=== PATIENT | male | born 1940 ===

== ENCOUNTER 2016-10-21 21:57 | Inpatient (IN) | payer MEDICARE ==
[~2016-10-21] VITALS: Ht 180.3 cm; Wt 111.5 kg
[2016-10-21 22:26] VITALS: BP 124/58; PULSE 107; RESP 16; TEMP 98.3; O2SAT 94
[2016-10-21] MEDS ORDERED: SODIUM CHLORIDE 0.9% FLUSH 10 ML FLUSH IV FLUSH PRN (22:45)
--- NOTE | 2016-10-21 22:45 | PD ---
HPI Chief Complaint: Fall Time Seen by Provider: 22:45 Travel History International Travel<30 days: No Contact w/Intl Traveler<30days: No Traveled to known affect area: No History of Present Illness HPI 75-year-old male with a history of liver cirrhosis, ascites, diabetes, hypertension, GERD, gastritis, thrombocytopenia is brought to our emergency department as a transfer from [facility] for subarachnoid hemorrhage and cervical and thoracic spine fractures. He was accepted in transfer by neurosurgeon Dr. Henry. The patient was in the process of being discharged from a recent hospitalization at their facility when he slipped in the shower and fell injuring his head and neck. The patient was then evaluated and noted to have a subarachnoid hemorrhage with fractures of C4, C7, T1. and T3 The patient states that he also somehow hit his chest wall when he fell and is complaining of pain in his mid sternal chest wall. Denies any headache, lightheadedness, dizziness, nausea, vomiting, numbness or tingling, weakness. Denies any anticoagulation. No other complaints. PFSH Past Medical History Diabetes: Yes Patient Takes Glucophage: Yes Diminished Hearing: No GERD: Yes Hypertension: Yes Tetanus Vaccination: < 5 Years Influenza Vaccination: No Past Surgical History Abdominal Surgery: Yes (bile duct and stomach reconstructionx 2-3 times) Social History Alcohol Use: No Tobacco Use: No Substance Use: No Allergies-Medications (Allergen,Severity, Reaction): Coded Allergies: No Known Allergies (Unverified , 10/21/16) Reported Meds & Prescriptions Reported Meds & Active Scripts Active Review of Systems Except as stated in HPI: all other systems reviewed are Neg Physical Exam Narrative GENERAL: Well-nourished and well-developed pleasant male patient in no acute distress who is nontoxic appearing. SKIN: Warm and dry. HEAD: Normocephalic and atraumatic. EYES: No injection, drainage, or hyphema noted. PERRLA. EOMI. ENT: No nasal drainage noted. Oropharynx is clear. NECK: Supple and the trachea is midline. Patient is currently in [place] collar cervical immobilization. CARDIOVASCULAR: Regular rate and rhythm. RESPIRATORY: Breath sounds are equal bilaterally with no accessory muscle use, wheezing, rhonchi, or crackles. GASTROINTESTINAL: Distended abdomen with varices noted. Soft and nontender to palpation. MUSCULOSKELETAL: Bilateral lower extremity edema. No obvious deformities, cyanosis, or ecchymosis is present throughout the upper and lower extremities. Patient has full range of motion without any signs of neurovascular compromise. Strength 5/5 upper and lower extremities equal bilaterally. NEUROLOGICAL: Awake, alert, and oriented. Normal speech and gait. Cranial nerves are grossly intact. Data Data Last Documented VS Vital Signs Date Time Temp Pulse Resp B/P Pulse Ox O2 Delivery O2 Flow Rate FiO2 10/21/16 22:52 95 Nasal Cannula 2 10/21/16 22:26 98.3 107 16 124/58 Orders Splint Or Brace Apply/Monitor (10/21/16 22:41) Complete Blood Count With Diff (10/21/16 22:43) Comprehensive Metabolic Panel (10/21/16 22:43) Prothrombin Time / Inr (Pt) (10/21/16 22:43) Act Partial Throm Time (Ptt) (10/21/16 22:43) Iv Access Insert/Monitor (10/21/16 22:43) Ecg Monitoring (10/21/16 22:43) Oximetry (10/21/16 22:43) Sodium Chloride 0.9% Flush (Ns Flush) (10/21/16 22:45) Chest, Single Ap (10/21/16 22:43) Ct Brain W/O Iv Contrast(Rout) (10/22/16 08:00) Consult Neurosurgery (10/21/16 ) (Hub Use Only)Inp Phy Cons/Ref (10/21/16 ) Admit Order (Ed Use Only) (10/21/16 23:14) Labs Laboratory Tests Test 10/21/16 23:00 White Blood Count 10.2 TH/MM3 Red Blood Count 3.37 MIL/MM3 Hemoglobin 12.6 GM/DL Hematocrit 36.1 % Mean Corpuscular Volume 107.1 FL Mean Corpuscular Hemoglobin 37.3 PG Mean Corpuscular Hemoglobin 34.9 % Concent Red Cell Distribution Width 15.3 % Platelet Count 105 TH/MM3 Mean Platelet Volume 8.0 FL Neutrophils (%) (Auto) 83.0 % Lymphocytes (%) (Auto) 8.9 % Monocytes (%) (Auto) 7.1 % Eosinophils (%) (Auto) 0.4 % Basophils (%) (Auto) 0.6 % Neutrophils # (Auto) 8.5 TH/MM3 Lymphocytes # (Auto) 0.9 TH/MM3 Monocytes # (Auto) 0.7 TH/MM3 Eosinophils # (Auto) 0.0 TH/MM3 Basophils # (Auto) 0.1 TH/MM3 CBC Comment DIFF FINAL Differential Comment Prothrombin Time 14.0 SEC Prothromb Time International 1.3 RATIO Ratio Activated Partial 28.9 SEC Thromboplast Time Sodium Level 144 MEQ/L Potassium Level 4.2 MEQ/L Chloride Level 106 MEQ/L Carbon Dioxide Level 29.6 MEQ/L Anion Gap 8 MEQ/L Blood Urea Nitrogen 19 MG/DL Creatinine 0.91 MG/DL Estimat Glomerular Filtration 82 ML/MIN Rate Random Glucose 122 MG/DL Calcium Level 8.3 MG/DL Total Bilirubin 2.6 MG/DL Aspartate Amino Transf 50 U/L (AST/SGOT) Alanine Aminotransferase 45 U/L (ALT/SGPT) Alkaline Phosphatase 99 U/L Total Protein 5.9 GM/DL Albumin 2.3 GM/DL MDM Medical Decision Making Medical Screen Exam Complete: Yes Emergency Medical Condition: Yes Differential Diagnosis Intracranial hemorrhage versus traumatic brain injury versus fracture versus strain Narrative Course 75-year-old male is brought to the emergency department in transfer from [facility] for subarachnoid hemorrhage and cervical and thoracic spine fractures. Patient is afebrile, vital signs are stable. Patient is awake , alert and oriented. No focal neurologic deficits. I spoke with the neurosurgeon who accepted the patient and he requested patient be placed in a [place] J collar and admitted to ICU. The patient's most recent labs included in the transfer packet were 2 days ago and showed that he had an INR of 1.3. We will recheck basic labs here at our facility. I discussed with the neurosurgeon and he does not recommend FFP at this time. He'll be admitted to the ICU. I discussed the case with my attending physician Dr. Mckinney who is aware of the patients history, physical examination findings, and treatment plan. Physician Communication Physician Communication I spoke with Dr. Henry neurosurgeon who accepted the transfer. He requests [place] J collar, admission to ICU and repeat head CT in the morning. I discussed with him the intrinsically elevated INR and he does not recommend FFP or any other treatment at this time. My attending physician Dr. Mckinney spoke with Dr. Thompson who agrees to admit the patient to his service. Diagnosis Primary Impression: Subarachnoid hemorrhage Additional Impressions: Multiple fractures of cervical spine, closed Qualified Code: S12.9XXA - Multiple fractures of cervical spine, closed, initial encounter Mult fractures of thoracic spine, closed Qualified Code: S22.009A - Mult fractures of thoracic spine, closed, initial encounter Admitting Information Admitting Physician Requests: Admit Caity Perry Oct 21, 2016 22:45
[2016-10-21 22:52] VITALS: O2SAT 95
[2016-10-21 23:15] LABS: AUTOMATED NEUTROPHIL # 8.5 TH/MM3 (1.8-7.7); BASOPHIL # 0.1 TH/MM3 (0-0.2); BASOPHIL % 0.6 % (0.0-2.0); EOSINOPHIL % 0.4 % (0.0-4.0); HEMATOCRIT 36.1 % (39.0-51.0); HEMO FLAGS DIFF FINAL; LYMPH % 8.9 % (9.0-44.0); LYMPHOCYTE # 0.9 TH/MM3 (1.0-4.8); MEAN CELL VOLUME 107.1 FL (80.0-100.0); MEAN CORPUSCULAR HEMOGLOBIN 37.3 PG (27.0-34.0); MEAN CORPUSCULAR HGB CONC 34.9 % (32.0-36.0); MONO % 7.1 % (0.0-8.0); PLATELET COUNT 105 TH/MM3 (150-450); RED BLOOD COUNT 3.37 MIL/MM3 (4.50-5.90); RED CELL DISTRIBUTION WIDTH 15.3 % (11.6-17.2); WHITE BLOOD COUNT 10.2 TH/MM3 (4.0-11.0)
[2016-10-21 23:36] LABS: APTT (PATIENT) 28.9 SEC (24.3-30.1); INTERNATIONAL NORMALIZED RATIO 1.3 RATIO
--- NOTE | 2016-10-21 23:41 | RADRPT ---
EXAM DATE/TIME: 10/21/2016 22:44 [facility] COMPARISON: No previous studies available for comparison. INDICATIONS : Pt fell this morning. Was discharged from [facility] with cervical and T1 fractures. C-collar i n place. MEDICAL HISTORY : Diabetes mellitus type II. Gastroesophageal reflux disease. Hypertension. SURGICAL HISTORY : Common bile duct reconstruction ENCOUNTER: Initial ACUITY: 1 day PAIN SCORE: 7/10 LOCATION: Bilateral chest FINDINGS: A single view of the chest is obtained. Cardiomegaly. Bibasilar atelectasis. The cardiomediastinal co ntours are unremarkable. Osseous structures are intact. CONCLUSION: 1. Cardiomegaly with bibasilar atelectasis. Oskar Chavira MD on October 21, 2016 at 23:37 Board Certified Radiologist. This report was verified electronically.
[2016-10-21 23:42] LABS: ALKALINE PHOSPHATASE 99 U/L (45-117); TOTAL BILIRUBIN ADULT 2.6 MG/DL (0.2-1.0)
[2016-10-21] MEDS ORDERED: SODIUM CHLOR 0.9% 1000 ML INJ 1,000 ML IV SCH (23:49)
[2016-10-21 23:50] LABS: ALT (GPT) 45 U/L (12-78); ANION GAP 8 MEQ/L (5-15); AST (GOT) 50 U/L (15-37); BICARBONATE 29.6 MEQ/L (21.0-32.0); BLOOD UREA NITROGEN 19 MG/DL (7-18); CHLORIDE 106 MEQ/L (98-107); GLOMERULAR FILTRATION RATE 82 ML/MIN (>89); POTASSIUM 4.2 MEQ/L (3.5-5.1); SODIUM (NA) 144 MEQ/L (136-145)
[2016-10-22] VITALS (11 sets, daily range): BP systolic 108–168; BP diastolic 66–76; PULSE 90–100; RESP 16–24; TEMP 96.9–98.6; O2SAT 91–95
[2016-10-22] MEDS ORDERED: ONDANSETRON HCL 4 MG/2 ML VIAL IV PRN
[2016-10-22] MEDS ORDERED: BISACODYL EC 5 MG TABEC PO PRN
[2016-10-22] MEDS ORDERED: Post-op Orders (for Pharmacy) MISC XX ONE
[2016-10-22] MEDS ORDERED: PANTOPRAZOLE SOD 40 MG DELAYED RELEASE TAB PO SCH
[2016-10-22] MEDS ORDERED: NALOXONE HCL 0.4 MG/ML AMP IV PRN
[2016-10-22] MEDS ORDERED: BENA40TA PO (00:10)
[2016-10-22] MEDS ORDERED: DICL75TA PO (00:10)
[2016-10-22] MEDS ORDERED: PANT40TA3 PO (00:10)
[2016-10-22] MEDS ORDERED: HUMU70IN SQ (00:10)
[2016-10-22] MEDS ORDERED: POTA-243 PO (00:10)
[2016-10-22] MEDS ORDERED: LACT10SO5 PO (00:10)
[2016-10-22] MEDS ORDERED: METF500T PO (00:10)
[2016-10-22] MEDS ORDERED: CLON0.5T PO (00:10)
[2016-10-22] MEDS: MORPHINE SULFATE 4 MG/ML INJ IV PRN ×4 (00:39→18:29)
--- NOTE | 2016-10-22 06:21 | PD.CONS ---
[facility] Service Critical Care Medicine Consult Requested By Primary Care Physician Martín Leon MD History of Present Illness Patient seen. Normal respiratory and hemodynamic status. Will not formally consult. Call if needed. Past Family Social History Allergies: Coded Allergies: No Known Allergies (Unverified , 10/21/16) Physical Exam Vital Signs Vital Signs Date Time Temp Pulse Resp B/P Pulse Ox O2 Delivery O2 Flow Rate FiO2 10/22/16 00:37 98 20 108/76 95 Nasal Cannula 2 10/21/16 22:52 95 Nasal Cannula 2 10/21/16 22:26 98.3 107 16 124/58 94 Laboratory Laboratory Tests Test 10/21/16 10/22/16 23:00 00:25 White Blood Count 10.2 Red Blood Count 3.37 Hemoglobin 12.6 Hematocrit 36.1 Mean Corpuscular Volume 107.1 Mean Corpuscular Hemoglobin 37.3 Mean Corpuscular Hemoglobin 34.9 Concent Red Cell Distribution Width 15.3 Platelet Count 105 Mean Platelet Volume 8.0 Neutrophils (%) (Auto) 83.0 Lymphocytes (%) (Auto) 8.9 Monocytes (%) (Auto) 7.1 Eosinophils (%) (Auto) 0.4 Basophils (%) (Auto) 0.6 Neutrophils # (Auto) 8.5 Lymphocytes # (Auto) 0.9 Monocytes # (Auto) 0.7 Eosinophils # (Auto) 0.0 Basophils # (Auto) 0.1 CBC Comment DIFF FINAL Differential Comment Prothrombin Time 14.0 Prothromb Time International 1.3 Ratio Activated Partial 28.9 Thromboplast Time Sodium Level 144 Potassium Level 4.2 Chloride Level 106 Carbon Dioxide Level 29.6 Anion Gap 8 Blood Urea Nitrogen 19 Creatinine 0.91 Estimat Glomerular Filtration 82 Rate Random Glucose 122 Calcium Level 8.3 Total Bilirubin 2.6 Aspartate Amino Transf 50 (AST/SGOT) Alanine Aminotransferase 45 (ALT/SGPT) Alkaline Phosphatase 99 Total Protein 5.9 Albumin 2.3 Ammonia 52 Result Diagram: 10/21/16229910/21/162299 Jos Evans MD Oct 22, 2016 06:21
--- NOTE | 2016-10-22 06:26 | MH ---
cc: EMPERATRIZ SWEENEY MD DATE OF ADMISSION: 10/21/2016 ADMITTING PHYSICIAN: Emperatriz Sweeney MD. REASON FOR ADMISSION: Right parietal subbrachial bleed. C4, C7 and T1 fractures. HISTORY OF PRESENT ILLNESS: This 75 year old male was transferred from [facility] after patient was just discharged from the hospital for a different reason, then he slipped in the shower and fell injuring his head and neck. The patient was evaluated in the [facility] noted to have fracture of C4, C7 and T1 and is now being transferred to us. He is admitted by Dr. Henry, Neurosurgeon. PAST MEDICAL HISTORY: 1. Diabetes mellitus. 2. Hypertension. 3. Liver cirrhosis with ascites. 4. Thrombocytopenia. PAST SURGICAL HISTORY: Multiple abdominal surgeries for bile duct reconstruction in the 70's. SOCIAL HISTORY: The patient says that he does not smoke, drink or use drugs. PHYSICAL EXAMINATION: IN GENERAL: Reveals a 75 year old male, slightly slow in response, normocephalic. HEAD, EYES, EARS, NOSE, AND THROAT: Pupils equal, round, reactive to light and accommodation, trauma to the head, consistent with some bruising over the right eyebrow. Extraocular muscles intact. No facial injuries, oral cavity is intact. Mandible is stable. No hemotympanum, no rowland sign, no raccoons eyes. Although I believe the patient will develop some periorbital swelling in the right real fast. NECK: The neck is examined, removing the anterior portion of the C-collar. The patient is tender over the entire neck but there are no step offs or no deformities. [place] is carefully repositioned. Chest, bilateral breath sounds, no signs of trauma to either the left or right chest. The patient is however, tender over the sternum although I do not see any step offs or deformities. The patient has a fractured . ABDOMEN: The abdomen is soft, active bowel sounds are distended with dullness over the entire lateral portion of the abdomen, some hyperresonances over the top consistent with the bowel swelling or ascites. The patient has severe ascites, the liver is enlarged to about 2 inches below the costal margin, mid clavicular line. I do not feel the spleen due to the ascites. GROINS: The groins are normal the patient may have a right inguinal hernia but it could also just be soft tissue of the abdominal wall. EXTREMITIES: The patient has palpable femoral pulses and dorsalis pedis, posterior tibia by Doppler. He has atrophy of the lower extremities, consistent with cirrhosis and malnutrition. BACK: The patient rotates his back and there are no signs of trauma to the back, no signs of trauma to extremities. NEUROLOGICALLY: The patient is grossly intact. Justyna Coma Scale is 50 and he has full range of motion. IMPRESSION/RECOMMENDATIONS: Patient with fall from standing position with a small right parietal subarachnoid bleed and fractures of C4, C7 and T1 with non-displacement and no neurologic deficits. The patient will be admitted to intensive care unit, appropriate orders entered, patient will be observed and neurosurgery is consulted. Emperatriz Garcia /11:51 PM /6:05 AM
[2016-10-22] MEDS: SODIUM CHLORIDE 0.9% FLUSH 10 ML FLUSH IV FLUSH SCH ×2 (07:52→20:48)
[2016-10-22] MEDS: DOCUSATE SODIUM 100 MG CAP PO SCH ×2 (07:52→20:47)
--- NOTE | 2016-10-22 08:38 | RADRPT ---
EXAM DATE/TIME: 10/22/2016 08:19 [facility] COMPARISON: No previous studies available for comparison. INDICATIONS : Trauma, evaluate status of subarachnoid hemorrhage. RADIATION DOSE: 48.53 CTDIvol (mGy) MEDICAL HISTORY : cirrhosis, ascites, diabetes, hypertension, GERD, gastritis, thrombocytopenia,subarachnoid hemorrhage with fractures of C4, C7, T1 and T3 SURGICAL HISTORY : None. ENCOUNTER: Initial ACUITY: 1 day PAIN SCALE: 0/10 LOCATION: Bilateral head TECHNIQUE: Multiple contiguous axial images were obtained of the head. Using automated exposure control and adj ustment of the mA and/or kV according to patient size, radiation dose was kept as low as reasonably a chievable to obtain optimal diagnostic quality images. DICOM format image data is available electro nically for review and comparison. FINDINGS: CEREBRUM: The ventricles are normal for age. There is bilateral cortical atrophy. No evidence of midline shift, mass lesion or acute infarction. No extra-axial fluid collections are seen. There is a 5 mm area of spontaneously dense material in the high right posterior parietal area suspicious for a small hemorr hagic contusion. POSTERIOR FOSSA: The cerebellum and brainstem are intact. The 4th ventricle is midline. The cerebellopontine angle i s unremarkable. EXTRACRANIAL: The visualized portion of the orbits is intact. Chronic right maxillary sinus disease. SKULL: The calvaria is intact. No evidence of skull fracture. CONCLUSION: 1. 5 mm small probable hemorrhagic contusion involving the right posterior parietal lobe. 2. Bilateral cortical atrophy. 3. Chronic right maxillary sinus disease. Aaron Ambriz MD on October 22, 2016 at 8:34 Board Certified Radiologist. This report was verified electronically.
[2016-10-22] MEDS: LACTULOSE SYRUP 20 GM/30 ML CUP PO SCH ×4 (09:22→20:48)
[2016-10-22] MEDS ORDERED: POTA10TA2 PO (11:01)
[2016-10-22] MEDS ORDERED: GLIM2TAB PO (11:01)
--- NOTE | 2016-10-22 11:45 | RADRPT ---
EXAM DATE/TIME: 10/22/2016 10:37 [facility] COMPARISON: No previous studies available for comparison. INDICATIONS : Trauma, upper back pain. RADIATION DOSE: 31.65 CTDIvol (mGy) MEDICAL HISTORY : cirrhosis, ascites, diabetes, hypertension, GERD, gastritis, thrombocytopenia,subarachnoid hemorrhage with fractures of C4, C7, T1 and T3 SURGICAL HISTORY : None. ENCOUNTER: Initial ACUITY: 1 day PAIN SCALE: 7/10 LOCATION: Bilateral upper back TECHNIQUE: Volumetric scanning of the thoracic spine was performed. Multiplanar reconstructions in the sagittal , coronal and oblique axial planes were performed. Using automated exposure control and adjustment o f the mA and/or kV according to patient size, radiation dose was kept as low as reasonably achievable to obtain optimal diagnostic quality images. DICOM format image data is available electronically f or review and comparison. FINDINGS: There appears to be a subacute to chronic compression fracture along the superior endplate of T1. The re also appear to be nondisplaced fractures involving the posterior lamina at C7. There are primary d egenerative changes involving the thoracic spine. No spondylolisthesis is seen. There is disc degener ation with disc space narrowing from T8-T12. There appears to be some old compression along the super ior endplate of L1. T1-T2: Normal. T2-T3: The thecal sac has a normal diameter. No evidence of disc bulge or protrusion. T3-T4: The thecal sac has a normal diameter. No evidence of disc bulge or protrusion. T4-T5: The thecal sac has a normal diameter. No evidence of disc bulge or protrusion. T5-T6: The thecal sac has a normal diameter. No evidence of disc bulge or protrusion. T6-T7: The thecal sac has a normal diameter. No evidence of disc bulge or protrusion. T7-T8: The thecal sac has a normal diameter. No evidence of disc bulge or protrusion. T8-T9: The thecal sac has a normal diameter. No evidence of disc bulge or protrusion. T9-T10: The thecal sac has a normal diameter. No evidence of disc bulge or protrusion. T10-T11: The thecal sac has a normal diameter. No evidence of disc bulge or protrusion. T11-T12: The thecal sac has a normal diameter. No evidence of disc bulge or protrusion. T12-L1: The thecal sac has a normal diameter. No evidence of disc bulge or protrusion. The findings were called by telephone to the nurse taking care of this patient. According to the nurse, patient has outside studies demonstrating multiple cervical spine fractures. CONCLUSION: 1. There appear to be nondisplaced fractures involving the posterior lamina bilaterally at C7. This i s suspicious for an unstable injury. 2. Subacute to chronic compression fracture along the superior endplate of T1 3. Primary degenerative changes with disc degeneration and disc space narrowing involving the mid to lower thoracic spine 4. Old compression fracture along the superior endplate of L1 Aaron Ambriz MD on October 22, 2016 at 11:30 Board Certified Radiologist. This report was verified electronically.
--- NOTE | 2016-10-22 12:16 | EKG ---
Date Performed: 10/22/2016 Time Performed: 00:35:28 PTAGE: 75 years EKG: Sinus rhythm LOW QRS VOLTAGE IN PRECORDIAL LEADS BORDERLINE ECG NO PREVIOUS TRACING DOCTOR: Dennys Philip Interpretating Date/Time 10/22/2016 12:13:33
--- NOTE | 2016-10-22 12:44 | MB ---
cc: SAUL OBANDO MD, JAMES DATE OF CONSULTATION: 10/22/[address] Obando. HISTORY This is a 75-year-old gentleman transferred from [facility] where he was seen in the emergency room following the fall at home. The patient allegedly slipped in the shower fell striking the back of his head and presented to the emergency room with complaints of neck pain anterior chest pain. His evaluation showed small amount of traumatic subarachnoid hemorrhage in the right posterior parietal region on CT scan of the brain as well as cervical spine fractures. The patient was transferred to [facility] for further evaluation and care. The patient's history is significant for cirrhosis of the liver with abdominal ascites. Thrombocytopenia, coagulopathy. On admission the patient was complaining of mainly the neck and sternal pain. No significant headache. Neck was immobilized in a [place] collar and was switched to [place] J collar on admission. He is not complaining of any visual dysfunction nauseated. No motor or sensory loss in the upper lower extremities. PAST MEDICAL HISTORY: 1. Past medical history significant for cirrhosis the liver abdominal ascites 2. thrombocytopenia 3. Coagulopathy 4. diabetes 5. hypertension. ALLERGIES None known. MEDICATIONS: Medications documented H&P they are up-to-date. SOCIAL HISTORY The patient denies tobacco use, alcohol and illicit drug use. PHYSICAL EXAMINATION: IN GENERAL: This is a well-developed elderly gentleman who is awake, alert. NECK: The neck is immobilized in a cervical collar. HEAD, EYES, EARS, NOSE, AND THROAT: Head is atraumatic other than for a slight bruising over the right eyebrow, no evidence of scalp laceration. Pupils are equal, reactive to light. Extraocular movements are intact. NECK: Immobilized in a [place] J collar. He does have posterior cervical tenderness throughout the cervical spine. He is also tender anteriorly at the sternal region. Range of motion not tested. NEUROLOGIC EXAMINATION The patient is alert and oriented x3 with normal mental status. Speech is intact to content and comprehension. Cranial nerves II-XII are intact. Motor function is 5/5 in the upper and lower extremities. Sensory intact to primary modalities. Reflexes hypoactive. X-RAYS Examination repeat CT scan of the brain performed here at [facility] this morning shows a small contusion or hemorrhage in the posterior right parietal region without surrounding edema or mass effect. No other parenchymal injuries or extra-axial bleeds noted. No midline shift. CT scan of the cervical spine from flap were shows by laminar fracture at C7 without anterior subluxation fracture extends into the T1 facette on the left. Questionable C4 spinous process fracture versus cystic changes within the spinous process. There is diffuse severe spondylosis, but overall normal alignment. ASSESSMENT/PLAN: 1. Closed head injury with a small right parietal contusion requiring no surgical intervention. 2. Cervical spine fractures which are stable and will be treated with external immobilization. 3. The patient is complaining of anterior chest wall pain without evidence of sternal fracture, so we need to rule out the possibility of the mid thoracic compression fracture. 4. Thoracic spine CT scan will be ordered to evaluate any thoracic fractures. 5. The patient will be mobilized as tolerated. MD PINA Bradford/low /10:14 AM /12:42 PM
--- NOTE | 2016-10-22 12:53 | HHI.CCPN ---
Subjective Brief History HISTORY OF PRESENT ILLNESS: This 75 year old male was transferred from [facility] after patient was just discharged from the hospital for a different reason, then he slipped in the shower and fell injuring his head and neck. The patient was evaluated in the [facility] noted to have fracture of C4, C7 and T1 and is now being transferred to us. PAST MEDICAL HISTORY: 1. Diabetes mellitus. 2. Hypertension. 3. Liver cirrhosis with ascites. 4. Thrombocytopenia. 24 Hour Review/Hospital Course Neurologically patient is fully intact is awake alert and oriented Night was uneventful Patient has extensive ascites and needs aggressive medical management Will transfer to floor this point and consult internal medicine to manage the patient Nothing to add from trauma or surgical point Neurosurgery consult is greatly appreciated and C7-T1 fractures will be managed conservatively Objective Vital Signs Date Time Temp Pulse Resp B/P Pulse Ox O2 Delivery O2 Flow Rate FiO2 10/22/16 12:17 95 Nasal Cannula 4.00 10/22/16 12:00 90 10/22/16 12:00 98.2 17 141/76 Result Diagram: 10/21/16 2300 10/21/16 2300 Imaging Last [address] 10/22/16 0800 Signed Impressions: Service Date/Time: Saturday, October 22, 2016 08:19 - CONCLUSION: 1. 5 mm small probable hemorrhagic contusion involving the right posterior parietal lobe. 2. Bilateral cortical atrophy. 3. Chronic right maxillary sinus disease. Aaron Ambriz MD Thoracic Spine CT 10/22/16 0000 Signed Impressions: Service Date/Time: Saturday, October 22, 2016 10:37 - CONCLUSION: 1. There appear to be nondisplaced fractures involving the posterior lamina bilaterally at C7. This is suspicious for an unstable injury. 2. Subacute to chronic compression fracture along the superior endplate of T1 3. Primary degenerative changes with disc degeneration and disc space narrowing involving the mid to lower thoracic spine 4. Old compression fracture along the superior endplate of L1 Aaron Ambriz MD Chest X-Ray 10/21/16 2243 Signed Impressions: Service Date/Time: Friday, October 21, 2016 22:44 - CONCLUSION: 1. Cardiomegaly with bibasilar atelectasis. MD Patel Lambert Slobodan MD Oct 22, 2016 12:53
[2016-10-22] MEDS: LISINOPRIL 20 MG TAB PO SCH (13:38)
[2016-10-22] MEDS: PANTOPRAZOLE SOD 40 MG DELAYED RELEASE TAB PO SCH (13:39)
[2016-10-22] MEDS: metFORMIN HCL 500 MG TAB PO SCH ×2 (13:39→17:09)
[2016-10-22] MEDS: FUROSEMIDE 40 MG TAB PO SCH (13:39)
[2016-10-22] MEDS: POTASSIUM CHLORIDE 10 MEQ CONTROLLED RELEASE TAB PO SCH ×2 (13:39→20:48)
[2016-10-22] MEDS: GLIMEPIRIDE 2 MG TAB PO SCH (14:21)
[2016-10-22] MEDS: DICLOFENAC SODIUM 75 MG DELAYED RELEASE TAB PO SCH (14:21)
[2016-10-22] MEDS: INSULIN HUMAN NPH/R 70/30 1,000 UNITS/10 ML VIAL SQ SCH (17:13)
[2016-10-22] MEDS: MAGNESIUM HYDROXIDE SUSP 30 ML CUP PO SCH (20:48)
[2016-10-22] MEDS ORDERED: GLUCAGON 1 MG/ML VIAL OTHER PRN (23:00)
[2016-10-22] MEDS ORDERED: DEXTROSE 50% IN WATER 50 ML VIAL(D50) IV PUSH PRN (23:00)
[2016-10-22] MEDS: LOW DOSE INSULIN NOVOLOG SUPPLEMENTAL SCALE SQ SCH (23:35)
[2016-10-23] VITALS: BP 124/64; PULSE 98; RESP 18; TEMP 96.1; O2SAT 93
[2016-10-23 04:16] VITALS: BP 115/61; PULSE 67; RESP 18; TEMP 98.1; O2SAT 92
[2016-10-23] MEDS: LOW DOSE INSULIN NOVOLOG SUPPLEMENTAL SCALE SQ SCH ×4 (05:44→20:11)
[2016-10-23 06:58] LABS: BASOPHIL % 0.4 % (0.0-2.0); EOSINOPHIL # 0.2 TH/MM3 (0-0.4); EOSINOPHIL % 1.9 % (0.0-4.0); HEMATOCRIT 33.1 % (39.0-51.0); LYMPH % 13.7 % (9.0-44.0); LYMPHOCYTE # 1.2 TH/MM3 (1.0-4.8); MEAN CELL VOLUME 108.1 FL (80.0-100.0); MEAN CORPUSCULAR HEMOGLOBIN 38.8 PG (27.0-34.0); MEAN CORPUSCULAR HGB CONC 35.9 % (32.0-36.0); MONO % 7.6 % (0.0-8.0); NEUT % 76.4 % (16.0-70.0); PLATELET COUNT 85 TH/MM3 (150-450); RED BLOOD COUNT 3.06 MIL/MM3 (4.50-5.90); RED CELL DISTRIBUTION WIDTH 15.9 % (11.6-17.2); WHITE BLOOD COUNT 9.1 TH/MM3 (4.0-11.0)
[2016-10-23 07:21] LABS: HEMO FLAGS AUTO DIFF
[2016-10-23 07:22] LABS: ALKALINE PHOSPHATASE 93 U/L (45-117); ALT (GPT) 40 U/L (12-78); ANION GAP 8 MEQ/L (5-15); AST (GOT) 38 U/L (15-37); BICARBONATE 27.8 MEQ/L (21.0-32.0); BLOOD UREA NITROGEN 37 MG/DL (7-18); CHLORIDE 106 MEQ/L (98-107); GLOMERULAR FILTRATION RATE 49 ML/MIN (>89); MAGNESIUM 1.9 MG/DL (1.5-2.5); POTASSIUM 4.3 MEQ/L (3.5-5.1); SODIUM (NA) 142 MEQ/L (136-145); TOTAL BILIRUBIN ADULT 3.3 MG/DL (0.2-1.0)
[2016-10-23 08:06] VITALS: BP 139/71; PULSE 72; RESP 18; TEMP 96.4; O2SAT 98
[2016-10-23 08:19] LABS: PLATELET ESTIMATE SMEAR LOW (NORMAL); PLATELET MORPHOLOGY NORMAL (NORMAL); SCAN/DIFF AUTO DIFF CONFIRMED
[2016-10-23] MEDS: INSULIN HUMAN NPH/R 70/30 1,000 UNITS/10 ML VIAL SQ SCH ×3 (08:35→17:28)
[2016-10-23] MEDS: SODIUM CHLORIDE 0.9% FLUSH 10 ML FLUSH IV FLUSH SCH ×2 (08:36→20:07)
[2016-10-23] MEDS: FUROSEMIDE 40 MG TAB PO SCH (08:37)
[2016-10-23] MEDS: DOCUSATE SODIUM 100 MG CAP PO SCH ×2 (08:37→20:06)
[2016-10-23] MEDS: GLIMEPIRIDE 2 MG TAB PO SCH (08:37)
[2016-10-23] MEDS: PANTOPRAZOLE SOD 40 MG DELAYED RELEASE TAB PO SCH (08:37)
[2016-10-23] MEDS: DICLOFENAC SODIUM 75 MG DELAYED RELEASE TAB PO SCH (08:37)
[2016-10-23] MEDS: clonazePAM 0.5 MG TAB PO SCH (08:37)
[2016-10-23] MEDS: LISINOPRIL 20 MG TAB PO SCH (08:37)
[2016-10-23] MEDS: metFORMIN HCL 500 MG TAB PO SCH (08:37)
[2016-10-23] MEDS: POTASSIUM CHLORIDE 10 MEQ CONTROLLED RELEASE TAB PO SCH ×3 (08:44→20:06)
[2016-10-23] MEDS: LACTULOSE SYRUP 20 GM/30 ML CUP PO SCH ×2 (08:44→20:06)
--- NOTE | 2016-10-23 09:49 | HHI.PR ---
Subjective Subjective Notes PTD: 2 Pt lying in bed. at bedside. Pt c/p pain to his LEFT chest side. was able to explain the events leading up to and including his injury at [facility]. states that the patient was discharged from [facility] and as she went out to pull the car around, the patient went into the restroom and fell and was found on the floor. Objective Vitals/I&O Vital Signs Date Time Temp Pulse Resp B/P Pulse Ox O2 Delivery O2 Flow Rate FiO2 10/23/16 08:06 96.4 72 18 139/71 98 10/22/16 12:17 Nasal Cannula 4.00 Labs Laboratory Tests Test 10/23/16 06:23 White Blood Count 9.1 Red Blood Count 3.06 Hemoglobin 11.9 Hematocrit 33.1 Mean Corpuscular Volume 108.1 Mean Corpuscular Hemoglobin 38.8 Mean Corpuscular Hemoglobin 35.9 Concent Red Cell Distribution Width 15.9 Platelet Count 85 Mean Platelet Volume 8.3 Neutrophils (%) (Auto) 76.4 Lymphocytes (%) (Auto) 13.7 Monocytes (%) (Auto) 7.6 Eosinophils (%) (Auto) 1.9 Basophils (%) (Auto) 0.4 Neutrophils # (Auto) 7.0 Lymphocytes # (Auto) 1.2 Monocytes # (Auto) 0.7 Eosinophils # (Auto) 0.2 Basophils # (Auto) 0.0 CBC Comment AUTO DIFF Differential Comment AUTO DIFF CONFIRMED Platelet Estimate LOW Platelet Morphology Comment NORMAL Sodium Level 142 Potassium Level 4.3 Chloride Level 106 Carbon Dioxide Level 27.8 Anion Gap 8 Blood Urea Nitrogen 37 Creatinine 1.42 Estimat Glomerular Filtration 49 Rate Random Glucose 151 Calcium Level 8.4 Magnesium Level 1.9 Total Bilirubin 3.3 Aspartate Amino Transf 38 (AST/SGOT) Alanine Aminotransferase 40 (ALT/SGPT) Alkaline Phosphatase 93 Total Protein 5.8 Albumin 2.1 Radiology Last Impressions Head CT 10/22/16 0800 Signed Impressions: Service Date/Time: Saturday, October 22, 2016 08:19 - CONCLUSION: 1. 5 mm small probable hemorrhagic contusion involving the right posterior parietal lobe. 2. Bilateral cortical atrophy. 3. Chronic right maxillary sinus disease. Aaron Ambriz MD Thoracic Spine CT 10/22/16 0000 Signed Impressions: Service Date/Time: Saturday, October 22, 2016 10:37 - CONCLUSION: 1. There appear to be nondisplaced fractures involving the posterior lamina bilaterally at C7. This is suspicious for an unstable injury. 2. Subacute to chronic compression fracture along the superior endplate of T1 3. Primary degenerative changes with disc degeneration and disc space narrowing involving the mid to lower thoracic spine 4. Old compression fracture along the superior endplate of L1 Aaron Ambriz MD Chest X-Ray 10/21/16 7230 Signed Impressions: Service Date/Time: Friday, October 21, 2016 22:44 - CONCLUSION: 1. Cardiomegaly with bibasilar atelectasis. Oskar Chavira MD Narrative Exam GENERAL: This is a 75-year-old male lying in bed. No acute distress. SKIN: Warm and dry. HEAD: Atraumatic. Normocephalic. EYES: PERRLA ENT: No nasal bleeding or discharge. Mucous membranes pink and moist. NECK: Trachea midline. No JVD. [place] J collar in place. CARDIOVASCULAR: Regular rate and rhythm. RESPIRATORY: No accessory muscle use. Lungs are clear to auscultation. Breath sounds equal bilaterally. No distress or dyspnea. GASTROINTESTINAL: BS + x 4 quads. Abdomen soft, non-tender, nondistended. Wan catheter in place to bedside drainage bag MUSCULOSKELETAL: Extremities without cyanosis, or edema. + peripheral pulses x 4 extremities. Warm with good capillary refill and sensation. MAEW. NEUROLOGICAL: Awake and alert. Normal speech and pattern. A/P Problem List: (1) Subarachnoid hemorrhage (2) Multiple fractures of cervical spine, closed (3) Mult fractures of thoracic spine, closed Assessment and Plan [place]: This is a 75-year-old male who sustained a fall. He was about to be discharged from the [facility] when he slipped in the bathroom and fell and hit his head and neck. (Additionally he somehow hit his chest.) He was a trauma transfer from [facility] PMHx: Cirrhosis, ascites, DM, HTN, GERD, gastritis, Thrombocytopenia INJURIES: SAH C4FX C7 Fx T1 and T3 Fx Consults: CCM. Neurosurgery. Hospitalists. Diet: 1800 ADA consistent carb diet. Tolerating po diet. Encourage good po intake with each meal. Pulmonary: Encourage good pulmonary toileting. IS at bedside and pt encouraged to use. Rationale for use explained to patient, and verbalized understanding. PAIN Management: Percocet 5 mg. Morphine 4 mg for breakthrough pain. Activity: OOB. (As per neurosurgeon) PT and OT ordered. GI prophylaxis: Protonix po. Bowel regimen: Colace and MOM. Lactulose twice a day. Bisacodyl NE PRN. LBM: 0 DVT prophylaxis: Mechanical VTE with SCDs. Chemical management TBD. DC Planning: Case management consulted for assistance with final discharge disposition. Emotional support provided to patient and at bedside and plan of care discussed. Discussed with RN at bedside. Patient is hemodynamically stable and being managed on the med/surg floor. SAH C4FX C7 Fx T1 and T3 Fx Neurosurgeon consulted and assisting with management and care Nonoperative management at this time [place] J collar Serial neuro checks PT and OT ordered OOB Pain management DM HTN Cirrhosis/ ascites ARF Hospitalist consulted and assisting with management and halfway medications resumed ADA diet Lactulose twice a day The exam, history, and the medical decision-making described in the above note were completed with the assistance of the mid-level provider. I reviewed and agree with the findings presented. I attest that I had a [id number] encounter with the patient on the same day, and personally performed and documented my assessment and findings in the medical record. Problem Qualifiers (1) Multiple fractures of cervical spine, closed: Qualified Code: S12.9XXA - Multiple fractures of cervical spine, closed, initial encounter (2) Mult fractures of thoracic spine, closed: Qualified Code: S22.009A - Mult fractures of thoracic spine, closed, initial encounter Norma Cao Oct 23, 2016 09:49 Vic Swift MD Oct 24, 2016 11:31
[2016-10-23] MEDS ORDERED: SODIUM CHLOR 0.9% 1000 ML INJ 1,000 ML IV SCH (10:00)
--- NOTE | 2016-10-23 10:37 | HHI.NSPN ---
History Interval History This is a 75-year-old gentleman transferred from [facility] where he was seen in the emergency room following the fall at home. The patient allegedly slipped in the shower fell striking the back of his head and presented to the emergency room with complaints of neck pain anterior chest pain. His evaluation showed small amount of traumatic subarachnoid hemorrhage in the right posterior parietal region on CT scan of the brain as well as cervical spine fractures. The patient was transferred to [place] for further evaluation and care. C6/25: Patient is awake and alert. Complaining of decreasing neck and sternal pain. No significant headache. Exam Results Vital Signs Date Time Temp Pulse Resp B/P Pulse Ox O2 Delivery O2 Flow Rate FiO2 10/23/16 08:06 96.4 72 18 139/71 98 10/22/16 12:17 Nasal Cannula 4.00 Intake and Output 10/22/16 10/22/16 10/23/16 08:00 16:00 00:00 Intake Total 471 ml 383 ml Output Total 525 ml 50 ml 300 ml Balance -54 ml 333 ml -300 ml Physical Examination Neurological: Awake and alert and oriented 3. Speech is intact. Cranial nerves II-XII are intact. Motor function 5 over 5 upper and lower extremities. Sensory intact. Neck: Immobilized in [place] J collar which is well fitting. X-ray: Thoracic spine CT scan shows the laminar fracture at C7 with mild compression of the anterior border of T1 which is questionably acute. No other lower thoracic compression fracture seen. Lab, Micro, Other Results Last Impressions Head CT 10/22/16 0800 Signed Impressions: Service Date/Time: Saturday, October 22, 2016 08:19 - CONCLUSION: 1. 5 mm small probable hemorrhagic contusion involving the right posterior parietal lobe. 2. Bilateral cortical atrophy. 3. Chronic right maxillary sinus disease. Aaron Ambriz MD Thoracic Spine CT 10/22/16 0000 Signed Impressions: Service Date/Time: Saturday, October 22, 2016 10:37 - CONCLUSION: 1. There appear to be nondisplaced fractures involving the posterior lamina bilaterally at C7. This is suspicious for an unstable injury. 2. Subacute to chronic compression fracture along the superior endplate of T1 3. Primary degenerative changes with disc degeneration and disc space narrowing involving the mid to lower thoracic spine 4. Old compression fracture along the superior endplate of L1 Aaron Ambriz MD Chest X-Ray 10/21/16 2249 Signed Impressions: Service Date/Time: Friday, October 21, 2016 22:44 - CONCLUSION: 1. Cardiomegaly with bibasilar atelectasis. Oskar Chavira MD Medical Decision Making Impression and Plan Bilaminar C7 fracture and possible mild anterior T1 compression fracture following ground-level fall. Radiographic studies showing stable alignment. Closed head injury with stable CT and no neurologic deficits. Plan: Continue external immobilization in [place] J collar. No other neurosurgical intervention indicated. Patient may be mobilized from bed as tolerated. Gabino Henry MD Oct 23, 2016 10:37
--- NOTE | 2016-10-23 11:32 | HHI.PR ---
Subjective Remarks Written by Clara Lora, acting as scribe for Dr. Bonilla on 10/23/16 at 1132. Follow up right parietal subbrachial bleed and C4, C7 and T1 fractures. Patient seen and examined this am. Patient awake, alert and oriented, speech clear, following commands appropriately. Denies any new acute complaints. at bedside, updated and questions answered. She states that patient had recently been discharged from [facility] for "leg swelling". [place] J collar intact. 1240 Received call from bedside RN with update about neuro change. Patient speech more garbled, now disoriented and not making sense. Stat CT head ordered. Neurosurgeon called. 1530 CT head reviewed, no acute process. Revisited patient to assess, he is alert and oriented to self and place. Speech more coherent. Following commands. UA showing increased leukocyte esterase. Await urine culture. Objective Vitals Vital Signs Date Time Temp Pulse Resp B/P Pulse Ox O2 Delivery O2 Flow Rate FiO2 10/23/16 08:06 96.4 72 18 139/71 98 10/23/16 04:16 98.1 67 18 115/61 92 10/23/16 00:00 96.1 98 18 124/64 93 10/22/16 20:46 97 16 95 10/22/16 19:58 97.9 93 18 122/74 91 10/22/16 18:34 18 10/22/16 17:00 96.9 91 18 162/72 95 10/22/16 16:00 99 10/22/16 16:00 98.5 99 20 157/66 93 10/22/16 12:17 95 Nasal Cannula 4.00 10/22/16 12:00 90 10/22/16 12:00 98.2 90 17 141/76 95 I/O 10/22/16 10/22/16 10/22/16 10/23/16 10/23/16 10/23/16 07:00 15:00 23:00 07:00 15:00 23:00 Intake Total 471 ml 383 ml Output Total 525 ml 50 ml 560 ml Balance -54 ml 333 ml -560 ml Intake Oral 120 ml 300 ml IV Total 351 ml 83 ml Output Urine Total 525 ml 50 ml 560 ml # Bowel Movements 0 0 0 Result Diagram: 10/23/1662210/23/16622 Imaging Last Impressions Head CT 10/23/16 1250 Signed Impressions: Service Date/Time: Sunday, October 23, 2016 13:28 - CONCLUSION: 1. No acute abnormality is seen. The previously seen hemorrhage in the right parietal region is no longer seen. 2. Atrophy. 3. Chronic right maxillary sinus disease. Martín Keenan MD Thoracic Spine CT 10/22/16 0000 Signed Impressions: Service Date/Time: Saturday, October 22, 2016 10:37 - CONCLUSION: 1. There appear to be nondisplaced fractures involving the posterior lamina bilaterally at C7. This is suspicious for an unstable injury. 2. Subacute to chronic compression fracture along the superior endplate of T1 3. Primary degenerative changes with disc degeneration and disc space narrowing involving the mid to lower thoracic spine 4. Old compression fracture along the superior endplate of L1 Aaron Ambriz MD Chest X-Ray 10/21/16 2243 Signed Impressions: Service Date/Time: Friday, October 21, 2016 22:44 - CONCLUSION: 1. Cardiomegaly with bibasilar atelectasis. Oskar Chavira MD Objective Remarks GENERAL: Well-nourished, well-developed male patient lying comfortably in bed, [place] J collar in place. SKIN: Warm and dry. HEENT: Normocephalic. Atraumatic. Pupils equal and round. Mucous membranes pink and moist. NECK: Supple. Trachea midline. CARDIOVASCULAR: Regular rate and rhythm. S1, S2 noted. No murmur appreciated. RESPIRATORY: No accessory muscle use. Clear to auscultation. Breath sounds equal bilaterally. GASTROINTESTINAL: Abdomen soft, non-tender, nondistended. Normoactive bowel sounds x4. MUSCULOSKELETAL: No obvious deformities. Extremities without clubbing, cyanosis , or edema. NEUROLOGICAL: Awake and alert. No obvious cranial nerve deficits. Motor grossly within normal limits. 5/5 muscle strength in all extremities. Speech clear at this time. Oriented x 2, to self and place. PSYCHIATRIC: Appropriate mood and affect. Urinary Catheter: Yes Assessment to: Continue A/P Assessment and Plan Mr. Riley is a 75-year-old male patient with a known history of diabetes mellitus, hypertension, liver cirrhosis with ascites and thrombocytopenia who presented to the ED after slipping in the shower and hitting his head and neck. Thoracic spine CT showing nondisplaced fractures involving the posterior lamina bilaterally at C7. Head CT initially showed a 5 mm small probable hemorrhage contusion involving the right posterior parietal lobe. Neurosurgery and trauma have been consulted. Patient was also recently discharged from [facility] , with minimal information regarding admission but per was related to his fluid retention. Nondisplaced fractures of the posterior lamina bilaterally at C7 - Thoracic spine CT reviewed and showing nondisplaced fractures involving the posterior lamina bilaterally at C7. - Head CT reviewed and showing a 5 mm small probable hemorrhage contusion involving the right posterior parietal lobe. - Neurosurgery and trauma team are following, appreciate input. Conservative management, not a surgical case. - Continue stabilization via [place] J collar per neurosurgery. - Control pain, Percocet 5/325 mg PO q4h PRN per pain scale. Morphine 4 mg IV PRN pain 6-10. - PT evaluation ordered. - Encourage IS use. Acute kidney injury suspect secondary to pyelonephritis/nephrotoxins/dehydration - Initial creatinine on admission 0.91 --> now 1.42. - Avoid nephrotoxins. Hold Metformin, Furosemide, Lisinopril and Diclofenac. - UA sent and reviewed, showing large amount of leukocyte esterase. Urine culture pending. Follow. - US bilateral kidney ordered and pending. Follow. - Urine negative for eosinophils. - Urine random creatinine WNL; total protein 51, random sodium 6, protein/ creatinine ratio 0.20. - Start patient on Rocephin 1 g IV q 24 hr. - Start on IVF slow infusion x 500 ml. - BNP ordered and reviewed, 82. - Monitor intake and output closely. Liver cirrhosis with ascites, chronic Thrombocytopenia Hyperbilirubinemia, chronic Hyperammonemia - Chronic. Will continue to monitor. - Diuretics on hold at this time for CHIQUIS. Will resume once stable. - Platelets 105 --> 85. Will follow. - Ammonia 52. Continue Lactulose 15 ml PO BID. - Recheck CBC in am. Hypertension, chronic: Controlled at this time. Clonidine 0.1 mg PO q6h PRN bp > 160/90. Type 2 diabetes mellitus, chronic: ACCU checks ACHS. Sliding scale insulin, cover as needed. Continue Novolin 70/30 6 units sq TIDAC. Continue Diabetic 1800 ADA diet. Anxiety: Clonazepam 0.5 mg PO daily. Constipation: Continue Docusate 100 mg PO BID. Continue Milk of Magnesium 30 ml PO HS. Continue Lactulose. GI Prophylaxis: Protonix DVT prophylaxis: SCDs/TEDs This note was transcribed by [email or web address] []. I, Dr. Grazyna Bonilla personally performed the history, physical exam, and medical decision making; and confirmed the accuracy of the information in the transcribed note. Authenticated by Dr. Grazyna Bonilla on 10/23/16 at 1132. Clara Lora Oct 23, 2016 11:32 Grazyna Bonilla MD Oct 25, 2016 14:27
[2016-10-23 12:26] LABS: BACTERIA, URINE OCC /hpf; BLOOD, URINE MOD (NEG); COMMENT (UR) CULTURE INDICATED; CULTURE IF INDICATED CULTURE INDICATED; GLUCOSE,URINE NEG (NEG); GRANULAR CAST, URINE 11 /lpf; HYALINE CAST, URINE 127 /lpf (RARE); KETONE, URINE NEG (NEG); MUCUS URINE MOD /lpf (OCC); NITRITE,URINE NEG (NEG)
[2016-10-23 12:29] LABS: URINE COLOR ORANGE (YELLW/STRAW)
[2016-10-23 12:50] VITALS: BP 122/66; PULSE 97; RESP 18; TEMP 97.3; O2SAT 94
--- NOTE | 2016-10-23 13:43 | RADRPT ---
EXAM DATE/TIME: 10/23/2016 13:28 [facility] COMPARISON: CT BRAIN W/O CONTRAST, October 22, 2016, 8:19. INDICATIONS : Change in mental status. RADIATION DOSE: 51.49 CTDIvol (mGy) MEDICAL HISTORY : Hypertension. Pancreatitis. Cirrhosis.Subarachnoid hemmorrhage. SURGICAL HISTORY : Cholecystectomy. ENCOUNTER: Initial ACUITY: 1 day PAIN SCALE: 5/10 LOCATION: cranial TECHNIQUE: Multiple contiguous axial images were obtained of the head. Using automated exposure control and adj ustment of the mA and/or kV according to patient size, radiation dose was kept as low as reasonably a chievable to obtain optimal diagnostic quality images. DICOM format image data is available electro nically for review and comparison. FINDINGS: CEREBRUM: The ventricles and cortical sulci are widened. No evidence of midline shift, mass lesion, hemorrhage or acute infarction. No extra-axial fluid collections are seen. POSTERIOR FOSSA: The cerebellum and brainstem are intact. The 4th ventricle is midline. The cerebellopontine angle i s unremarkable. EXTRACRANIAL: The visualized portion of the orbits is intact. There is chronic right maxillary sinus disease. SKULL: The calvaria is intact. No evidence of skull fracture. CONCLUSION: 1. No acute abnormality is seen. The previously seen hemorrhage in the right parietal region is no lo nger seen. 2. Atrophy. 3. Chronic right maxillary sinus disease. Martín Keenan MD on October 23, 2016 at 13:39 Board Certified Radiologist. This report was verified electronically.
[2016-10-23] MEDS ORDERED: cefTRIAXone INJ 1,000 MG in SODIUM CHLORIDE 0.9% INJ 100 ML IV SCH (16:00)
[2016-10-23 16:23] VITALS: BP 125/66; PULSE 95; RESP 18; TEMP 97.2; O2SAT 93
--- NOTE | 2016-10-23 18:19 | RADRPT ---
EXAM DATE/TIME: 10/23/2016 17:06 [facility] COMPARISON: No previous studies available for comparison. INDICATIONS : Acute kidney injury on chronic kidney disease. MEDICAL HISTORY : Hypertension. Pancreatitis. Cirrhosis.Subarachnoid hemmorrhage. SURGICAL HISTORY : Cholecystectomy. ENCOUNTER: Subsequent ACUITY: 1 day PAIN SCORE: 0/10 LOCATION: Bilateral flank MEASUREMENTS: RIGHT KIDNEY: 9.0 x 6.0 x 5.9 cm LEFT KIDNEY: 11.5 x 5.4 x 5.6 cm FINDINGS: RIGHT KIDNEY: There is poor visualization due to the patient's body habitus. No hydronephrosis is noted. LEFT KIDNEY: There is poor visualization due to the patient's body habitus. No hydronephrosis is noted. BLADDER: Wan catheter is noted within the urinary bladder. Within normal limits given the degree of distensi on. MISCELLANEOUS: Ascites is noted within the abdomen. CONCLUSION: 1. Poor visualization of the kidneys as described above. 2. No hydronephrosis is noted. 3. Ascites. Venu Prasad MD on October 23, 2016 at 18:14 Board Certified Radiologist. This report was verified electronically.
[2016-10-23 20:00] VITALS: BP 119/64; PULSE 109; RESP 20; TEMP 95.9; O2SAT 94
[2016-10-23] MEDS: MAGNESIUM HYDROXIDE SUSP 30 ML CUP PO SCH (20:06)
[2016-10-23] MEDS: oxyCODONE/ACETAMINOPHEN 5 MG/325 MG TAB PO PRN (22:51)
[2016-10-24] VITALS (8 sets, daily range): BP systolic 122–150; BP diastolic 70–91; PULSE 97–103; RESP 15–25; TEMP 96.3–98; O2SAT 91–97
[2016-10-24] MEDS ORDERED: SODIUM CHLOR 0.9% 1000 ML INJ 1,000 ML IV SCH (02:30)
[2016-10-24 03:22] LABS: AUTOMATED NEUTROPHIL # 6.2 TH/MM3 (1.8-7.7); BASOPHIL # 0.1 TH/MM3 (0-0.2); BASOPHIL % 1.7 % (0.0-2.0); EOSINOPHIL # 0.2 TH/MM3 (0-0.4); HEMATOCRIT 31.9 % (39.0-51.0); LYMPH % 12.6 % (9.0-44.0); MEAN CELL VOLUME 106.9 FL (80.0-100.0); MEAN CORPUSCULAR HEMOGLOBIN 38.2 PG (27.0-34.0); MEAN CORPUSCULAR HGB CONC 35.7 % (32.0-36.0); MONO % 6.3 % (0.0-8.0); NEUT % 77.4 % (16.0-70.0); PLATELET COUNT 79 TH/MM3 (150-450); RED BLOOD COUNT 2.98 MIL/MM3 (4.50-5.90); RED CELL DISTRIBUTION WIDTH 15.3 % (11.6-17.2)
[2016-10-24 03:31] LABS: BICARBONATE 29.6 MEQ/L (21.0-32.0); POTASSIUM 4.5 MEQ/L (3.5-5.1)
[2016-10-24 03:38] LABS: HEMO FLAGS AUTO DIFF
[2016-10-24] MEDS: LACTULOSE SYRUP 20 GM/30 ML CUP PO SCH ×5 (03:45→20:19)
[2016-10-24 04:14] LABS: PLATELET MORPHOLOGY NORMAL (NORMAL); SCAN/DIFF AUTO DIFF CONFIRMED
[2016-10-24 04:16] LABS: PLATELET ESTIMATE SMEAR LOW (NORMAL)
[2016-10-24] MEDS: LOW DOSE INSULIN NOVOLOG SUPPLEMENTAL SCALE SQ SCH (05:41)
[2016-10-24] MEDS: SODIUM CHLORIDE 0.9% FLUSH 10 ML FLUSH IV FLUSH SCH ×2 (09:00→21:00)
[2016-10-24] MEDS: POTASSIUM CHLORIDE 10 MEQ CONTROLLED RELEASE TAB PO SCH ×3 (09:00→20:19)
[2016-10-24] MEDS: DOCUSATE SODIUM 100 MG CAP PO SCH (09:40)
[2016-10-24] MEDS: PANTOPRAZOLE SOD 40 MG DELAYED RELEASE TAB PO SCH (09:40)
[2016-10-24] MEDS: clonazePAM 0.5 MG TAB PO SCH (09:41)
[2016-10-24] MEDS: MORPHINE SULFATE 4 MG/ML INJ IV PRN (09:55)
[2016-10-24] MEDS: INSULIN HUMAN NPH/R 70/30 1,000 UNITS/10 ML VIAL SQ SCH (10:30)
--- NOTE | 2016-10-24 11:03 | HHI.PR ---
Subjective Subjective Notes PTD: 3 Patient sitting up in bed. [place] J collar in place. Confused. Objective Vitals/I&O Vital Signs Date Time Temp Pulse Resp B/P Pulse Ox O2 Delivery O2 Flow Rate FiO2 10/24/16 07:45 96.7 100 15 140/91 91 10/23/16 08:50 Nasal Cannula 4.00 Labs Laboratory Tests Test 10/23/16 10/24/16 11:05 03:04 Urine Color ORANGE Urine Turbidity HAZY Urine pH 5.0 Urine Specific [place] 1.018 Urine Protein 30 Urine Glucose (UA) NEG Urine Ketones NEG Urine Occult Blood MOD Urine Nitrite NEG Urine Bilirubin SMALL Urine Urobilinogen 2.0 Urine Leukocyte Esterase LARGE Urine RBC 139 Urine WBC 80 Urine Bacteria OCC Urine Hyaline Casts 127 Urine Granular Casts 11 Urine Mucus MOD Microscopic Urinalysis Comment CULTURE INDICATED Urine Eosinophils NONE SEEN Urine Random Creatinine 253 Urine Random Total Protein 51 Urine Random Sodium 6 Urine Protein/Creatinine Ratio 0.20 White Blood Count 8.0 Red Blood Count 2.98 Hemoglobin 11.4 Hematocrit 31.9 Mean Corpuscular Volume 106.9 Mean Corpuscular Hemoglobin 38.2 Mean Corpuscular Hemoglobin 35.7 Concent Red Cell Distribution Width 15.3 Platelet Count 79 Mean Platelet Volume 7.8 Neutrophils (%) (Auto) 77.4 Lymphocytes (%) (Auto) 12.6 Monocytes (%) (Auto) 6.3 Eosinophils (%) (Auto) 2.0 Basophils (%) (Auto) 1.7 Neutrophils # (Auto) 6.2 Lymphocytes # (Auto) 1.0 Monocytes # (Auto) 0.5 Eosinophils # (Auto) 0.2 Basophils # (Auto) 0.1 CBC Comment AUTO DIFF Differential Comment AUTO DIFF CONFIRMED Platelet Estimate LOW Platelet Morphology Comment NORMAL Red Cell Morphology Comment NORMAL Sodium Level 143 Potassium Level 4.5 Chloride Level 107 Carbon Dioxide Level 29.6 Anion Gap 6 Blood Urea Nitrogen 43 Creatinine 1.19 Estimat Glomerular Filtration 60 Rate Random Glucose 106 Calcium Level 8.3 Ammonia 102 B-Type Natriuretic Peptide 85 Date/Time Procedure Status Source Growth 10/23/16 11:05 Urine Culture Received Urine Clean Catch Pending Radiology Last Impressions Head CT 10/23/16 1250 Signed Impressions: Service Date/Time: Sunday, October 23, 2016 13:28 - CONCLUSION: 1. No acute abnormality is seen. The previously seen hemorrhage in the right parietal region is no longer seen. 2. Atrophy. 3. Chronic right maxillary sinus disease. Martín Keenan MD Renal Ultrasound 10/23/16 0000 Signed Impressions: Service Date/Time: Sunday, October 23, 2016 17:06 - CONCLUSION: 1. Poor visualization of the kidneys as described above. 2. No hydronephrosis is noted. 3. Ascites. Venu Prasad MD Thoracic Spine CT 10/22/16 0000 Signed Impressions: Service Date/Time: Saturday, October 22, 2016 10:37 - CONCLUSION: 1. There appear to be nondisplaced fractures involving the posterior lamina bilaterally at C7. This is suspicious for an unstable injury. 2. Subacute to chronic compression fracture along the superior endplate of T1 3. Primary degenerative changes with disc degeneration and disc space narrowing involving the mid to lower thoracic spine 4. Old compression fracture along the superior endplate of L1 Aaron Ambriz MD Chest X-Ray 10/21/16 2243 Signed Impressions: Service Date/Time: Friday, October 21, 2016 22:44 - CONCLUSION: 1. Cardiomegaly with bibasilar atelectasis. Oskar Chavira MD Narrative Exam GENERAL: This is a 75-year-old male lying in bed. No acute distress. SKIN: Warm and dry. HEAD: Atraumatic. Normocephalic. EYES: PERRLA ENT: No nasal bleeding or discharge. Mucous membranes pink and moist. NECK: Trachea midline. No JVD. [place] J collar in place. CARDIOVASCULAR: Regular rate and rhythm. RESPIRATORY: No accessory muscle use. Lungs are clear to auscultation. Breath sounds equal bilaterally. No distress or dyspnea. GASTROINTESTINAL: BS + x 4 quads. Abdomen soft, non-tender, nondistended. Wan catheter in place to bedside drainage bag MUSCULOSKELETAL: Extremities without cyanosis, or edema. + peripheral pulses x 4 extremities. Warm with good capillary refill and sensation. MAEW. NEUROLOGICAL: Awake and alert. Normal speech and pattern. A/P Problem List: (1) Subarachnoid hemorrhage (2) Multiple fractures of cervical spine, closed (3) Mult fractures of thoracic spine, closed Assessment and Plan [place]: This is a 75-year-old male who sustained a fall. He was about to be discharged from [facility] when he slipped in the bathroom and fell and hit his head and neck. (Additionally he somehow hit his chest.) He was a trauma transfer from [facility] PMHx: Cirrhosis, ascites, DM, HTN, GERD, gastritis, Thrombocytopenia INJURIES: SAH C4FX C7 Fx T1 and T3 Fx Consults: CCM. Neurosurgery. Hospitalists. Diet: 1800 ADA consistent carb diet. Tolerating po diet. Encourage good po intake with each meal. Pulmonary: Encourage good pulmonary toileting. IS at bedside and pt encouraged to use. Rationale for use explained to patient, and verbalized understanding. PAIN Management: Percocet 5 mg. Morphine 4 mg for breakthrough pain. Activity: OOB. (As per neurosurgeon) PT and OT ordered. GI prophylaxis: Protonix po. Bowel regimen: Colace and MOM. Lactulose QID. Bisacodyl NC PRN. LBM: 0 DVT prophylaxis: Mechanical VTE with SCDs. Chemical management TBD. DC Planning: Case management consulted for assistance with final discharge disposition. [facility] is evaluating the patient for possible admission. Emotional support provided to patient and at bedside and plan of care discussed. Discussed with RN at bedside. Patient is hemodynamically stable and being managed on the med/surg floor. SAH C4FX C7 Fx T1 and T3 Fx Neurosurgeon consulted and assisting with management and care Nonoperative management at this time 10/23: Repeat CT head - improved [place] J collar Serial neuro checks PT and OT ordered OOB Pain management DM HTN Cirrhosis/ ascites ARF Hospitalist consulted and assisting with management and half-way medications resumed ADA diet Ammonia 102 Lactulose increased to QID. Confused Attending Statement The patient appears to be somewhat more confused today Ammonia level is 100 Patient at this time has a non-operable C7-T1 fracture. His bigger issue is cirrhosis ascites and liver failure I believe the patient's level lobe the patient is due to liver failure and he' ll be transferred back to ICU after discussion with neurosurgery I'll also ask Dr. Resnediz to please except patient to sharepoint application architect service for there is not much to do or add from the surgical and trauma point The exam, history, and the medical decision-making described in the above note were completed with the assistance of the mid-level provider. I reviewed and agree with the findings presented. I attest that I had a [id number] encounter with the patient on the same day, and personally performed and documented my assessment and findings in the medical record. Problem Qualifiers (1) Multiple fractures of cervical spine, closed: Qualified Code: S12.9XXA - Multiple fractures of cervical spine, closed, initial encounter (2) Mult fractures of thoracic spine, closed: Qualified Code: S22.009A - Mult fractures of thoracic spine, closed, initial encounter Norma Cao Oct 24, 2016 11:03 Emperatriz Sweeney MD Oct 24, 2016 16:19
[2016-10-24] MEDS ORDERED: MAGN400S PO (11:33)
[2016-10-24] MEDS ORDERED: OXYC1TAB63 PO (11:33)
[2016-10-24] MEDS ORDERED: DOCU1CAP39 PO (11:33)
[2016-10-24] MEDS ORDERED: FLEE5TAB PO (11:33)
--- NOTE | 2016-10-24 11:44 | HHI.NSPN ---
Note Status Status: Progress Note Interval History Diagnosis TBI. Cervical fracture Interval History This is a 75-year-old gentleman transferred from [facility] where he was seen in the emergency room following the fall at home. The patient allegedly slipped in the shower fell striking the back of his head and presented to the emergency room with complaints of neck pain anterior chest pain. His evaluation showed small amount of traumatic subarachnoid hemorrhage in the right posterior parietal region on CT scan of the brain as well as cervical spine fractures. The patient was transferred to [place] for further evaluation and care. C6/25: Patient is awake and alert. Complaining of decreasing neck and sternal pain. No significant headache. 10/24. He is very lethargic, confused, stuporose Labs, Micro, & Vital Signs Results Date Time Temp Pulse Resp B/P Pulse Ox O2 Delivery O2 Flow Rate FiO2 10/24/16 07:45 96.7 100 15 140/91 91 10/24/16 04:00 97.1 97 20 141/74 92 10/24/16 00:01 18 10/24/16 00:00 96.3 102 20 122/70 92 10/23/16 20:00 95.9 109 20 119/64 94 10/23/16 16:23 97.2 95 18 125/66 93 10/23/16 12:50 97.3 97 18 122/66 94 10/24/16 06:59 Intake Total 960 ml Output Total 1600 ml Balance -640 ml Constitutional Vital Signs Date Time Temp Pulse Resp B/P Pulse Ox O2 Delivery O2 Flow Rate FiO2 10/24/16 07:45 96.7 100 15 140/91 91 10/24/16 04:00 97.1 97 20 141/74 92 10/24/16 00:01 18 10/24/16 00:00 96.3 102 20 122/70 92 10/23/16 20:00 95.9 109 20 119/64 94 10/23/16 16:23 97.2 95 18 125/66 93 10/23/16 12:50 97.3 97 18 122/66 94 10/24/16 06:59 Intake Total 960 ml Output Total 1600 ml Balance -640 ml Review of Systems/Exam Exam The patient is very lethargic, stuporose, confused, oriented to self. Cranial nerve examination demonstrates the pupils to be equal, round, and reactive to light. Extra-ocular movements are intact with normal convergence. Facial motor function appears normal and symmetrical. Face sensation, hearing, visual acosta, and olfaction can not be assessed properly due to the patients condition. The patient has an intact corneal reflex and a gag reflex. Sternocleidomastoid and trapezius have normal and symmetrical strength. Other cranial nerves are intact. Cervical spine in a [place] collar Muscle testing reveals normal bulk and tone overall without rigidity, spasticity , fasciculations, or atrophy. Muscle strength is 5/5 in all muscle groups of both upper and lower extremities. Deep tendon reflexes are 1+ and symmetrical in the biceps, triceps, and brachioradialis, bilaterally, in the upper extremities. In the lower extremities , the patellar and Achilles are 1+, bilaterally. There is a bilateral plantar flexion response. Hoffmanns sign is negative. There is no clonus or other abnormal reflexes noted. Cerebellar examination is limited due to the patient condition, but no obvious deficits are noted. Medications Current Medications Current Medications Sodium Chloride 2 ml 2 ml UNSCH PRN IV FLUSH FLUSH AFTER USING IV ACCESS; Start 10/21/16 at 22:45; Stop 10/22/16 at 08:41; Status DC Sodium Chloride (NS 1000 ml Inj) 1,000 ml @ 60 mls/hr [id number] IV Last administered on 10/22/16 00:38; Start 10/21/16 at 23:49; Stop 10/22/16 at 09:54 ; Status DC Sodium Chloride (NS Flush) 2 ml UNSCH PRN IV FLUSH FLUSH AFTER USING IV ACCESS ; Start 10/22/16 at 00:00 Sodium Chloride (NS Flush) 2 ml BID IV FLUSH Last administered on 10/23/16 20: 07; Start 10/22/16 at 09:00 Ondansetron HCl (Zofran Inj) 4 mg Q6H PRN IV NAUSEA OR VOMITING Last administered on 10/22/16 00:39; Start 10/22/16 at 00:00 Pantoprazole Sodium (Protonix) 40 mg Q24H PO Last administered on 10/22/16 00: 38; Start 10/22/16 at 00:00; Stop 10/22/16 at 21:12; Status DC Bisacodyl (Dulcolax Ec) 10 mg Q12H PRN PO CONSTIPATION; Start 10/22/16 at 00:00 Docusate Sodium (Colace) 100 mg BID PO Last administered on 10/24/16 09:40; Start 10/22/16 at 09:00 Miscellaneous Information (Post-op Orders (for Pharmacy)) STAT ONCE XX ; Start 10/22/16 at 00:00; Stop 10/22/16 at 07:08; Status DC Oxycodone/ Acetaminophen (Percocet 5-325 Mg) 1 tab Q4H PRN PO PAIN SCALE 3 TO 5 Last administered on 10/23/16 22:51; Start 10/22/16 at 00:00 Morphine Sulfate (Morphine Inj) 4 mg Q3H PRN IV 6-10 Last administered on 09:55; Start 10/22/16 at 00:00 Naloxone HCl (Narcan Inj) 0.4 mg UNSCH PRN IV SEE LABEL COMMENTS; Start at 00:00 Magnesium Hydroxide (Milk Of Magnesia Liq) 30 ml HS PO Last administered on 20:06; Start 10/22/16 at 21:00 Lactulose (Lactulose Liq) 30 ml BID PO Last administered on 10/22/16 20:48; Start 10/22/16 at 09:00; Stop 10/23/16 at 07:55; Status DC Clonazepam (KlonoPIN) 0.5 mg DAILY PO Last administered on 10/24/16 09:41; Start 10/23/16 at 09:00 Diclofenac Sodium (Voltaren Dr) 75 mg DAILY PO Last administered on 10/23/16 08:37; Start 10/22/16 at 13:00; Stop 10/23/16 at 09:31; Status DC Glimepiride (Amaryl) 2 mg DAILY PO Last administered on 10/23/16 08:37; Start 10/22/16 at 13:00; Stop 10/23/16 at 09:31; Status DC Insulin Human Isoph/Insulin Regular (NovoLIN 70/30 INJ) 6 units TIDAC SQ Last administered on 10/24/16 10:30; Start 10/22/16 at 17:00 Metformin HCl (Glucophage) 500 mg BIDPC PO Last administered on 10/23/16 08:37 ; Start 10/22/16 at 13:00; Stop 10/23/16 at 09:31; Status DC Pantoprazole Sodium (Protonix) 40 mg DAILY PO Last administered on 10/24/16 09 :40; Start 10/22/16 at 13:00 Potassium Chloride (KCl) 10 meq BID PO Last administered on 10/24/16 09:41; Start 10/22/16 at 13:00 Potassium Chloride (KCl) 10 meq DAILY PO Last administered on 10/23/16 08:44; Start 10/23/16 at 09:00 Lisinopril (Prinivil) 40 mg DAILY PO Last administered on 10/23/16 08:37; Start 10/22/16 at 13:15; Status Hold Lactulose (Lactulose Liq) 15 ml BID PO Last administered on 10/23/16 20:06; Start 10/22/16 at 13:15; Stop 10/24/16 at 03:33; Status DC Furosemide (Lasix) 40 mg DAILY PO Last administered on 10/23/16 08:37; Start 10/22/16 at 13:00; Stop 10/23/16 at 09:31; Status DC Dextrose (D50w (Vial) Inj) 25 ml UNSCH PRN IV PUSH HYPOGLYCEMIA - SEE COMMENTS ; Start 10/22/16 at 23:00 Glucagon (Glucagon Inj) 1 mg UNSCH PRN OTHER HYPOGLYCEMIA-SEE COMMENTS; Start 10/22/16 at 23:00 Insulin Aspart (NovoLOG SUPPLEMENTAL SCALE) 1 ACHS SLIDING SCALE SQ Last administered on 10/22/16 23:35; Start 10/22/16 at 23:00 Clonidine 0.1 mg 0.1 mg Q6H PRN PO bp>160/90; Start 10/23/16 at 09:30 Sodium Chloride 1,000 ml @ 60 mls/hr [id number] IV Last administered on 10:46; Start 10/23/16 at 10:00; Stop 10/23/16 at 18:19; Status DC Ceftriaxone Sodium 1000 mg/ Sodium Chloride 100 ml @ 200 mls/hr Q24H IV Last administered on 10/23/16t 16:25; Start 10/23/16 at 16:00 Sodium Chloride (NS 1000 ml Inj) 1,000 ml @ 60 mls/hr [id number] IV ; Start at 02:30; Stop 10/24/16 at 02:33; Status DC Lactulose (Lactulose Liq) 30 ml QID PO Last administered on 10/24/16 09:40; Start 10/24/16 at 03:45 Medical Decision Making MDM Remarks Last Impressions Head CT 10/23/16 1250 Signed Impressions: Service Date/Time: Sunday, October 23, 2016 13:28 - CONCLUSION: 1. No acute abnormality is seen. The previously seen hemorrhage in the right parietal region is no longer seen. 2. Atrophy. 3. Chronic right maxillary sinus disease. Martín Keenan MD Renal Ultrasound 10/23/16 0000 Signed Impressions: Service Date/Time: Sunday, October 23, 2016 17:06 - CONCLUSION: 1. Poor visualization of the kidneys as described above. 2. No hydronephrosis is noted. 3. Ascites. Venu Prasad MD Thoracic Spine CT 10/22/16 0000 Signed Impressions: Service Date/Time: Saturday, October 22, 2016 10:37 - CONCLUSION: 1. There appear to be nondisplaced fractures involving the posterior lamina bilaterally at C7. This is suspicious for an unstable injury. 2. Subacute to chronic compression fracture along the superior endplate of T1 3. Primary degenerative changes with disc degeneration and disc space narrowing involving the mid to lower thoracic spine 4. Old compression fracture along the superior endplate of L1 Aaron Ambriz MD Chest X-Ray 10/21/16 2243 Signed Impressions: Service Date/Time: Friday, October 21, 2016 22:44 - CONCLUSION: 1. Cardiomegaly with bibasilar atelectasis. Oskar Chavira MD Plan Plan Remarks Bilaminar C7 fracture and possible mild anterior T1 compression fracture following ground-level fall. Closed head injury with SAH, stable CT Attending Statement Neurological. Continue neuro checks in a serial fashion. A follow-up CT of the head will be obtained in 24 hours. His condition has deteriorated today. He is very lethargic and I am concerned for aspiration or compromise of his airway Cirrhosis and ascitis. Possible paracenthesis today. Amonia over 100. Xifaxan and lactulose Cervical fracture. Continue external immobilization in [place] J collar. No other neurosurgical intervention indicated. Patient may be mobilized from bed as tolerated. Pulmonary. aggressive pulmonary toilette, nasotracheal suction, and breathing treatments with nebulizers. PT and OT evaluation Nutrition. NPO Renal. monitor closely urine output, BUN and creatinine Endocrine. Monitor serial Acu checks and SSI as needed in detail ID Pneumonia. Continue Zosyn and azithromycin Protonix for stress ulcer prophylaxis Alistair gamino and SCD's for DVT prophylaxis Gurjit Burch MD Oct 24, 2016 11:44
[2016-10-24] MEDS ORDERED: NITROGLYCERIN 0.4 MG SL 25 TABS/BTL SL PRN (11:45)
[2016-10-24] MEDS ORDERED: SODIUM CHLOR 0.9% 1000 ML INJ 1,000 ML IV PRN (12:00)
[2016-10-24] MEDS ORDERED: MORPHINE SULFATE 4 MG/ML INJ IV PRN (12:00)
--- NOTE | 2016-10-24 12:11 | HHI.PR ---
Subjective Remarks Follow-up encephalopathy. Patient's neurosurgeon approached me and he is concerned regarding worsening encephalopathy requesting transfer to ICU. Discussed with patient's who noted G and confusion today. Discussed with RN, patient earlier complained of chest pain now he seems to be bothered with his abdomen. He is lethargic and unable to provide meaningful history. He is pulling out his Wan catheter. Chart reviewed. Medication reconciliation form reviewed. Fingerstick 106. Oxygen saturation 91%. He has not had any bowel movement since admission and lactulose has been increased to 4 times a day today. Lactulose increased to 102 Objective Vitals Vital Signs Date Time Temp Pulse Resp B/P Pulse Ox O2 Delivery O2 Flow Rate FiO2 10/24/16 07:45 96.7 100 15 140/91 91 10/24/16 04:00 97.1 97 20 141/74 92 10/24/16 00:01 18 10/24/16 00:00 96.3 102 20 122/70 92 10/23/16 20:00 95.9 109 20 119/64 94 10/23/16 16:23 97.2 95 18 125/66 93 10/23/16 12:50 97.3 97 18 122/66 94 I/O 10/23/16 10/23/16 10/23/16 10/24/16 10/24/16 10/24/16 07:00 15:00 23:00 07:00 15:00 23:00 Intake Total 840 ml 120 ml Output Total 560 ml 1100 ml 500 ml Balance -560 ml -260 ml -380 ml Intake Oral 240 ml 120 ml IV Total 600 ml Output Urine Total 560 ml 1100 ml 500 ml # Bowel Movements 0 0 Result Diagram: 10/24/16 0304 10/24/16 0304 Imaging Last Impressions Head CT 10/23/16 1250 Signed Impressions: Service Date/Time: Sunday, October 23, 2016 13:28 - CONCLUSION: 1. No acute abnormality is seen. The previously seen hemorrhage in the right parietal region is no longer seen. 2. Atrophy. 3. Chronic right maxillary sinus disease. Martín Keenan MD Renal Ultrasound 10/23/16 0000 Signed Impressions: Service Date/Time: Sunday, October 23, 2016 17:06 - CONCLUSION: 1. Poor visualization of the kidneys as described above. 2. No hydronephrosis is noted. 3. Ascites. Venu Prasad MD Thoracic Spine CT 10/22/16 0000 Signed Impressions: Service Date/Time: Saturday, October 22, 2016 10:37 - CONCLUSION: 1. There appear to be nondisplaced fractures involving the posterior lamina bilaterally at C7. This is suspicious for an unstable injury. 2. Subacute to chronic compression fracture along the superior endplate of T1 3. Primary degenerative changes with disc degeneration and disc space narrowing involving the mid to lower thoracic spine 4. Old compression fracture along the superior endplate of L1 Aaron Ambriz MD Chest X-Ray 10/21/16 2243 Signed Impressions: Service Date/Time: Friday, October 21, 2016 22:44 - CONCLUSION: 1. Cardiomegaly with bibasilar atelectasis. Oskar Chavira MD Objective Remarks GENERAL: Well-nourished, well-developed male patient lying in bed, [place] J collar in place. SKIN: Warm and dry. HEENT: Normocephalic. Atraumatic. Pupils equal and round. Mucous membranes pink and moist. NECK: Supple. Trachea midline. CARDIOVASCULAR: Regular rate and rhythm. S1, S2 noted. No murmur appreciated. RESPIRATORY: No accessory muscle use. Clear to auscultation. Breath sounds equal bilaterally. GASTROINTESTINAL: Abdomen soft, seems to be tender and distended. Normoactive bowel sounds x4. MUSCULOSKELETAL: No obvious deformities. Extremities without clubbing, cyanosis but with bilateral lower extremity pitting edema. NEUROLOGICAL: Lethargic. No obvious cranial nerve deficits. Generalized weakness. Speech clear at this time. Procedures none Date of Insertion: Oct 24, 2016 A/P Problem List: (1) Subarachnoid hemorrhage ICD Code: I60.9 Status: Acute (2) Multiple fractures of cervical spine, closed ICD Code: S12.9XXA Status: Acute (3) Mult fractures of thoracic spine, closed ICD Code: S22.009A Status: Acute Assessment and Plan Mr. Riley is a 75-year-old male patient with a known history of diabetes mellitus, hypertension, liver cirrhosis with ascites and thrombocytopenia who presented to the ED after slipping in the shower and hitting his head and neck. Thoracic spine CT showing nondisplaced fractures involving the posterior lamina bilaterally at C7. Head CT initially showed a 5 mm small probable hemorrhage contusion involving the right posterior parietal lobe. Neurosurgery and trauma have been consulted. Patient was also recently discharged from [facility] , with minimal information regarding admission but per was related to his fluid retention. Encephalopathy likely multifactorial (toxic and hepatic). Repeat head CT shows resolved hemorrhage. Ammonia level increased to 102. Agree with increasing lactulose titrate to 3 loose stools per day. Add rifaximin. Minimize use of narcotics and benzodiazepines patient received morphine and Klonopin 3 hours ago. Discussed with RN Nondisplaced fractures of the posterior lamina bilaterally at C7 - Thoracic spine CT reviewed and showing nondisplaced fractures involving the posterior lamina bilaterally at C7. - Head CT reviewed and showing a 5 mm small probable hemorrhage contusion involving the right posterior parietal lobe. - Neurosurgery and trauma team are following, appreciate input. Conservative management, not a surgical case. - Continue stabilization via [place] J collar per neurosurgery. - Control pain, Percocet 5/325 mg PO q4h PRN per pain scale. Decrease IV morphine to 1 mg for breakthrough pain. - PT evaluation ordered. - Encourage IS use. Acute kidney injury suspect secondary to dehydration - Improving status post IV hydration - Avoid nephrotoxins. Hold Metformin, Furosemide and Diclofenac. - UA sent and reviewed, showing large amount of leukocyte esterase. Urine culture pending. Follow. - US bilateral kidney ordered results noted - Urine negative for eosinophils. - Urine random creatinine WNL; total protein 51, random sodium 6, protein/ creatinine ratio 0.20. - Continue Rocephin 1 g IV q 24 hr. - BNP ordered and reviewed, 82. - Monitor intake and output closely. IV fluid as needed if by mouth intake less than 50% Liver cirrhosis with ascites, chronic Thrombocytopenia Hyperbilirubinemia, chronic Hyperammonemia - Chronic. Will continue to monitor. - Diuretics on hold at this time for CHIQUIS. Will resume once stable. - Platelets 105 --> 85. Will follow. - Ammonia 52. Increase lactulose and start rifaximin - Recheck CBC in am. - Seems to be having abdominal tenderness. Diagnostic and therapeutic paracentesis and follow-up results Chest pain. Chest pain rule out PA protocol obtain chest x-ray (evaluate for pneumonia which could explain encephalopathy) and follow-up results. Initial EKG interpreted by me with sinus tachycardia with low voltage no change from previous except for rate Hypertension, chronic: Controlled at this time. Clonidine 0.1 mg PO q6h PRN bp > 160/90. Type 2 diabetes mellitus, chronic: ACCU checks ACHS. Sliding scale insulin, cover as needed. Hold Novolin 70/30 6 units sq TIDAC secondary to decreased oral intake from altered mental status. Continue Diabetic 1800 ADA diet. Hypoglycemia protocol Anxiety: Clonazepam 0.5 mg PO daily with hold parameters. Constipation: Continue Docusate 100 mg PO BID and Milk of Magnesium 30 ml PO HS. lactulose increased GI Prophylaxis: Protonix DVT prophylaxis: SCDs/TEDs. No pharmacologic prophylaxis secondary to thrombocytopenia Discharge Planning Transfer to ICU. He is critical and will need closer monitoring in the intensive care unit. High likelihood of decompensation. Monitor for aspiration. Critical care time spent 35 minutes Problem Qualifiers (1) Multiple fractures of cervical spine, closed: Qualified Code: S12.9XXA - Multiple fractures of cervical spine, closed, initial encounter (2) Mult fractures of thoracic spine, closed: Qualified Code: S22.009A - Mult fractures of thoracic spine, closed, initial encounter Juan Roman MD Oct 24, 2016 12:11
--- NOTE | 2016-10-24 12:22 | RADRPT ---
EXAM DATE/TIME: 10/24/2016 11:57 [facility] COMPARISON: CHEST SINGLE AP, October 21, 2016, 22:44. INDICATIONS : Chest pain. MEDICAL HISTORY : Hypertension. Pancreatitis. Cirrhosis.Subarachnoid hemmorrhage. SURGICAL HISTORY : Cholecystectomy. ENCOUNTER: Initial ACUITY: 1 day PAIN SCORE: 5/10 LOCATION: Bilateral upper chest FINDINGS: The right lung remains clear. Increasing consolidations are present in the left base. The heart rem ains enlarged. The pulmonary vascularity is reasonably normal. The portion of the bony skeleton visu alized is unremarkable. CONCLUSION: Increasing consolidation changes left base. Parminder Pierson MD FACR on October 24, 2016 at 12:19 Board Certified Radiologist. This report was verified electronically.
[2016-10-24] MEDS: RIFAXIMIN 550 MG TAB PO SCH ×2 (13:00→20:19)
[2016-10-24] MEDS ORDERED: RESP: ALBUTEROL 2.5 MG/3 ML NEB (PRN) NEB (14:30)
--- NOTE | 2016-10-24 14:37 | PD.PROCEDR ---
Procedure Note Procedure Procedure Paracentesis Indication-Ascites, probable SBP Description of procedure Informed consent was obtained from and time out performed. Patient appropriately positioned. Right lower quadrant fluid pocket was marked with ultrasound. Chlorhexidine used to prepare the site. Full barrier and sterile precautions used including drape, gown and mask and sterile gloves. Site was anesthetized with 1% lidocaine, and a small skin rodo made with scalpel. Paracentesis Angiocath introduced into the ascites fluid but I was unable to withdraw fluid despite fluid pocket seen. Procedure was repeated on LLQ and I was darius to get only 5 ml blood tinged fluid for studies. Will get CT abdomen pelvis stat to evaluate ascites Uzair Resendiz MD Oct 24, 2016 14:37
--- NOTE | 2016-10-24 14:41 | PD.CONS ---
[facility] Service Critical Care Medicine Consult Requested By Dr. Sweeney Reason for Consult Acute hepatic encephalopathy Probable SBP HCAP Sepsis Primary Care Physician Martín Leon MD History of Present Illness This 75 year old male who was transferred from [facility] on 10/21/16 after he slipped in the shower and fell injuring his head and neck. He was noted to have fracture of C4, C7 and T1 and CT of the head showed closed head injury with right parietal contusion. Patient was transferred to [facility] for trauma and neurosurgery evaluation. 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 Initially was admitted to the ICU but was transferred to the floor next day. Patient was intermittently confused yesterday but became worse today morning, increasing confusion and delirium. Ammonia level was checked which was 102. Due to confusion and intermittent agitation patient was transferred to ICU and critical care medicine was consulted for management of hepatic encephalopathy, ascites. I evaluated the patient immediately in the ICU. He appears in moderate distress and agitated intermittently. Bedside ultrasound shows fluid pockets in the bilateral lower quadrants but I was unable to drain any significant amount of fluid. A stat CT abdomen pelvis is pending at this time. I attempted a second time and was able to drain a pocket of ascites in RLQ. Slightly yellow straw colored fluid was removed 350 ML ( Patient moved during procedure and catheter stopped draining, probably slipped out of fluid pocket). Continue lactulose 30 mL 4 times a day and Xifaxan. It was also noted that patient has increasing infiltrates on the left lower lobe indicating probable HCAP. Patient is currently on Zosyn and azithromycin which will be continued. Review of Systems ROS Limitations: Clinical Condition, Altered Mental Status Past Family Social History Allergies: Coded Allergies: No Known Allergies (Unverified , 10/21/16) Past Medical History Diabetes mellitus. Hypertension. Liver cirrhosis with ascites. Thrombocytopenia Past Surgical History Extensive surgeries for bile duct reconstruction in 1970s Reported Medications Lactulose Benazepril Clonazepam Metformin Humulin 70/30 Diclofenac Protonix Potassium supplements Glimepiride Active Ordered Medications Reviewed Family History Unable to obtain family history due to altered mental status Social History No history of alcohol use Physical Exam Vital Signs Vital Signs Date Time Temp Pulse Resp B/P Pulse Ox O2 Delivery O2 Flow Rate FiO2 10/24/16 12:00 97.0 100 15 143/87 92 10/24/16 07:45 96.7 100 15 140/91 91 10/24/16 04:00 97.1 97 20 141/74 92 10/24/16 00:01 18 10/24/16 00:00 96.3 102 20 122/70 92 10/23/16 20:00 95.9 109 20 119/64 94 10/23/16 16:23 97.2 95 18 125/66 93 Physical Exam GENERAL: Well-nourished and well-developed male, in moderate distress and agitated appears critically ill SKIN: Warm and dry. HEAD: Normocephalic and atraumatic. EYES: No injection, drainage, or hyphema noted. Pupils are reactive ENT: No nasal drainage noted. NECK: Supple and the trachea is midline. Patient is currently in [place] collar cervical immobilization. CARDIOVASCULAR: Regular rate and rhythm. No murmurs RESPIRATORY: Breath sounds are equal bilaterally with no accessory muscle use, wheezing, rhonchi, or crackles. GASTROINTESTINAL: Distended abdomen with multiple surgical scars. Patient has bilateral lower quadrant ascites on ultrasound MUSCULOSKELETAL: Bilateral lower extremity edema. NEUROLOGICAL: Somnolent but wakes up easily, and intermittently confused and agitated. Slurred speech. Moves all extremities equally. Laboratory Laboratory Tests Test 10/24/16 03:04 White Blood Count 8.0 Red Blood Count 2.98 Hemoglobin 11.4 Hematocrit 31.9 Mean Corpuscular Volume 106.9 Mean Corpuscular Hemoglobin 38.2 Mean Corpuscular Hemoglobin 35.7 Concent Red Cell Distribution Width 15.3 Platelet Count 79 Mean Platelet Volume 7.8 Neutrophils (%) (Auto) 77.4 Lymphocytes (%) (Auto) 12.6 Monocytes (%) (Auto) 6.3 Eosinophils (%) (Auto) 2.0 Basophils (%) (Auto) 1.7 Neutrophils # (Auto) 6.2 Lymphocytes # (Auto) 1.0 Monocytes # (Auto) 0.5 Eosinophils # (Auto) 0.2 Basophils # (Auto) 0.1 CBC Comment AUTO DIFF Differential Comment AUTO DIFF CONFIRMED Platelet Estimate LOW Platelet Morphology Comment NORMAL Red Cell Morphology Comment NORMAL Sodium Level 143 Potassium Level 4.5 Chloride Level 107 Carbon Dioxide Level 29.6 Anion Gap 6 Blood Urea Nitrogen 43 Creatinine 1.19 Estimat Glomerular Filtration 60 Rate Random Glucose 106 Calcium Level 8.3 Ammonia 102 B-Type Natriuretic Peptide 85 Date/Time Procedure Status Source Growth 10/23/16 11:05 Urine Culture - Preliminary Resulted Urine Clean Catch IMMATURE GROWTH - REINCUBATE Result Diagram: 10/24/16 0304 10/24/[address] abdomen pelvis Moderate ascites CXR LLL pneumonia Septic Shock Reassessment Heart: Regular rate and rhythm Lungs: Clear Skin: Warm Peripheral Pulses: Bounding Right Radial Bounding Left Radial Capillary Refill: Brisk Assessment and Plan Assessment and Plan NEURO: Acute hepatic encephalopathy Closed head injury with right parietal contusion, SAH Bilaminar C7 fracture and possible mild anterior T1 compression fracture - Current encephalopathy appears to be hepatic encephalopathy, ammonia level is 102 - Continue Xifaxan and lactulose - As needed Haldol for agitation. Avoid benzodiazepines, and opiates - Trend ammonia level RESP: Respiratory insufficiency Healthcare associated pneumonia - Nasal cannula oxygen - DuoNeb every 6 hours when necessary, aggressive pulmonary toilet - Continue Zosyn and azithromycin CV: History of hypertension - Normal saline IV fluids at 84 mL per hour - Monitor blood pressure and heart rate GI: Ascites Liver cirrhosis Rule out SBP Hyperammonemia - Status post paracentesis with 350 mL of free-flowing straw-colored fluid removed - Send for further studies. Zosyn should cover for probable SBP - Continue Xifaxan and lactulose : Acute kidney injury -Monitor renal function closely. Wan catheter. ID: Sepsis HCAP Possible SBP - Continue Zosyn and azithromycin. Give single dose of vancomycin - Check blood urine and sputum and ascitic fluid cultures HEME: Thrombocytopenia - Monitor CBC, CMP, coags - Thrombocytopenia secondary to liver cirrhosis ENDO: Type 2 diabetes - Electrolyte replacement per protocol - Sliding-scale insulin PROPH: - Bilateral lower extremity SCDs. Avoid chemical prophylaxis due to thrombocytopenia and closed head injury. IV Protonix LINES: - Utilize peripheral IVs, central line if needed CC time 82 min Code Status Full Discussed Condition With Uzair James MD Oct 24, 2016 14:41 Uzair Resendiz MD Oct 24, 2016 14:41
[2016-10-24] MEDS: RESP: ALBUTEROL 2.5 MG/IPRATROPIUM 0.5 MG NEB (SCH) INH ×3 (15:04→22:19)
[2016-10-24] MEDS: PIPERACIL-TAZO 4.5 GM PREMIX 100 ML IV SCH ×2 (15:38→22:00)
[2016-10-24] MEDS: AZITHROMYCIN INJ 500 MG in SODIUM CHLOR 0.9% 250 ML INJ 250 ML IV SCH (15:38)
[2016-10-24] MEDS: INSULIN ASPART SUPPLEMENTAL SCALE SQ SCH ×2 (16:00→20:54)
--- NOTE | 2016-10-24 16:32 | PD.PROCEDR ---
Procedure Note Procedure Procedure Paracentesis second attempt at paracentesis Indication: Ascites Description of procedure Informed consent was obtained from and time out performed. Patient appropriately positioned. Right lower quadrant fluid pocket was marked with ultrasound. Chlorhexidine used to prepare the site. Full barrier and sterile precautions used including drape, gown and mask and sterile gloves. Site was anesthetized with 1% lidocaine, and a small skin rodo made with scalpel. Paracentesis Angiocath introduced into the ascites fluid free flowing slightly yellow straw-colored ascitic fluid obtained. After about 350 ml of fluid was drained, patient abruptly moved dislodging the catheter from the fluid pocket. Attempted repositioning of the catheter did not drain any more fluid. Catheter was removed patient tolerated procedure well blood loss was minimal Uzair Resendiz MD Oct 24, 2016 16:32
--- NOTE | 2016-10-24 16:36 | RADRPT ---
EXAM DATE/TIME: 10/24/2016 14:46 [facility] COMPARISON: No previous studies available for comparison. INDICATIONS : Abdominal distention ORAL CONTRAST: No oral contrast ingested. RADIATION DOSE: 15.39 CTDIvol (mGy) MEDICAL HISTORY : Pancreatitis. Cirrhosis. diabetes SURGICAL HISTORY : Cholecystectomy. colectomy ENCOUNTER: Initial ACUITY: 1 day PAIN SCALE: Non-responsive LOCATION: Bilateral abdomen TECHNIQUE: Volumetric scanning of the abdomen and pelvis was performed. Using automated exposure control and ad justment of the mA and/or kV according to patient size, radiation dose was kept as low as reasonably achievable to obtain optimal diagnostic quality images. DICOM format image data is available electro nically for review and comparison. FINDINGS: LOWER LUNGS: Is atelectasis and effusion at the left lung base. Minimal atelectasis in the right base. LIVER: Markedly cirrhotic appearance. No focal mass or biliary ductal dilatation. Large upper abdominal vari era including what appears to be a very large splenorenal shunt. SPLEEN: Normal size without lesion. PANCREAS: Within normal limits. KIDNEYS: Normal in size and shape. There is no mass, stone, or hydronephrosis. ADRENAL GLANDS: Left adrenal gland is surrounded by lobular soft tissue density which is felt to actually a part rela te to enlarged varices. Adrenal mass on this side is not excluded. VASCULAR: There is no aortic aneurysm. BOWEL/MESENTERY: No dilated bowel loops. Moderate ascites. ABDOMINAL WALL: Prior mesh hernia repair. RETROPERITONEUM: There is no lymphadenopathy. BLADDER: No wall thickening or mass. REPRODUCTIVE: Within normal limits. INGUINAL: Fluid containing right inguinal hernia MUSCULOSKELETAL: Within normal limits for patient age. CONCLUSION: Cirrhosis with moderate ascites. Pleural effusion, mainly on the left. Lobular density in the region of the left adrenal gland is felt to mainly relate to varices, however an adrenal mass is not excluded. Further evaluation with contrasted CT versus MRI would be suggested. Fluid containing right inguinal hernia. Martín Mcneil MD on October 24, 2016 at 15:14 Board Certified Radiologist. This report was verified electronically.
[2016-10-24 17:36] LABS: PERITONEAL HISTIOCYTES 3 %; PERITONEAL LYMPHS 42 %; PERITONEAL MESOTHELIAL 21 %; PERITONEAL MONOS 2 %; PERITONEAL POLYS(SEGS) 32 %; PERITONEAL WBC 608 /MM3 (0-10)
[2016-10-24] MEDS ORDERED: VANCOMYCIN INJ 1,250 MG in SODIUM CHLOR 0.9% 250 ML INJ 250 ML IV ONE (19:00)
[2016-10-24] MEDS: MAGNESIUM HYDROXIDE SUSP 30 ML CUP PO SCH (20:19)
[2016-10-24] MEDS: DOCUSATE SODIUM 100 MG/10 ML UDC PO SCH (20:19)
[2016-10-24] MEDS: oxyCODONE/ACETAMINOPHEN 5 MG/325 MG TAB PO PRN (20:41)
[2016-10-24 23:05] LABS: LDH SERUM 399 U/L (87-241)
[2016-10-24 23:09] LABS: CREATINE KINASE 100 U/L (39-308)
[2016-10-24] MEDS: HALOPERIDOL LACTATE 5 MG/ML AMP IV PRN (23:58)
[2016-10-25] VITALS (7 sets, daily range): BP systolic 150–173; BP diastolic 83–99; PULSE 105–122; RESP 16–24; TEMP 97.9–98.8; O2SAT 94–100
[2016-10-25] MEDS: cloNIDine HCL 0.1 MG TAB PO PRN ×3 (00:22→19:40)
[2016-10-25] MEDS: oxyCODONE/ACETAMINOPHEN 5 MG/325 MG TAB PO PRN ×2 (03:23→10:15)
[2016-10-25] MEDS: PIPERACIL-TAZO 4.5 GM PREMIX 100 ML IV SCH ×4 (03:23→22:09)
[2016-10-25 04:50] LABS: AUTOMATED NEUTROPHIL # 4.4 TH/MM3 (1.8-7.7); BASOPHIL % 0.6 % (0.0-2.0); EOSINOPHIL # 0.1 TH/MM3 (0-0.4); HEMATOCRIT 33.3 % (39.0-51.0); LYMPH % 12.9 % (9.0-44.0); LYMPHOCYTE # 0.8 TH/MM3 (1.0-4.8); MEAN CELL VOLUME 108.2 FL (80.0-100.0); MEAN CORPUSCULAR HEMOGLOBIN 38.1 PG (27.0-34.0); MEAN CORPUSCULAR HGB CONC 35.2 % (32.0-36.0); NEUT % 72.5 % (16.0-70.0); PLATELET COUNT 83 TH/MM3 (150-450); RED BLOOD COUNT 3.08 MIL/MM3 (4.50-5.90); WHITE BLOOD COUNT 6.1 TH/MM3 (4.0-11.0)
[2016-10-25 04:55] LABS: HEMO FLAGS AUTO DIFF
[2016-10-25 05:41] LABS: ALKALINE PHOSPHATASE 97 U/L (45-117); ALT (GPT) 39 U/L (12-78); ANION GAP 8 MEQ/L (5-15); AST (GOT) 45 U/L (15-37); BLOOD UREA NITROGEN 31 MG/DL (7-18); CHLORIDE 110 MEQ/L (98-107); GLOMERULAR FILTRATION RATE 76 ML/MIN (>89); MAGNESIUM 1.8 MG/DL (1.5-2.5); POTASSIUM 4.3 MEQ/L (3.5-5.1); SODIUM (NA) 148 MEQ/L (136-145); TOTAL BILIRUBIN ADULT 5.5 MG/DL (0.2-1.0)
[2016-10-25] MEDS: INSULIN ASPART SUPPLEMENTAL SCALE SQ SCH ×4 (06:17→19:41)
[2016-10-25 07:30] LABS: PLATELET ESTIMATE SMEAR LOW (NORMAL); PLATELET MORPHOLOGY NORMAL (NORMAL); SCAN/DIFF AUTO DIFF CONFIRMED
[2016-10-25] MEDS: SODIUM CHLORIDE 0.9% FLUSH 10 ML FLUSH IV FLUSH SCH ×2 (07:46→19:41)
[2016-10-25] MEDS: RESP: ALBUTEROL 2.5 MG/IPRATROPIUM 0.5 MG NEB (SCH) INH ×4 (07:58→19:47)
[2016-10-25] MEDS: DOCUSATE SODIUM 100 MG/10 ML UDC PO SCH ×2 (08:16→19:40)
[2016-10-25] MEDS: LISINOPRIL 20 MG TAB PO SCH (08:16)
[2016-10-25] MEDS: LACTULOSE SYRUP 20 GM/30 ML CUP PO SCH ×4 (08:16→19:40)
[2016-10-25] MEDS: POTASSIUM CHLORIDE 10 MEQ CONTROLLED RELEASE TAB PO SCH ×3 (08:16→19:40)
[2016-10-25] MEDS: PANTOPRAZOLE SOD 40 MG DELAYED RELEASE TAB PO SCH (08:17)
[2016-10-25] MEDS: RIFAXIMIN 550 MG TAB PO SCH ×2 (08:22→19:40)
--- NOTE | 2016-10-25 12:04 | HHI.NSPN ---
Note Status Status: Progress Note Interval History Diagnosis TBI. Cervical fracture Interval History This is a 75-year-old gentleman transferred from [facility] where he was seen in the emergency room following the fall at home. The patient allegedly slipped in the shower fell striking the back of his head and presented to the emergency room with complaints of neck pain anterior chest pain. His evaluation showed small amount of traumatic subarachnoid hemorrhage in the right posterior parietal region on CT scan of the brain as well as cervical spine fractures. The patient was transferred to [place] for further evaluation and care. C6/25: Patient is awake and alert. Complaining of decreasing neck and sternal pain. No significant headache. 10/24. He is very lethargic, confused, stuporose 10/25. He is better today. S/p paracenthesis, amonia lower Labs, Micro, & Vital Signs Results Date Time Temp Pulse Resp B/P Pulse Ox O2 Delivery O2 Flow Rate FiO2 10/25/16 08:00 99 2.50 10/25/16 08:00 98.5 105 16 173/83 100 10/25/16 07:00 97 Nasal Cannula 4.00 10/25/16 04:23 22 10/25/16 04:00 98.8 117 16 152/94 97 10/25/16 00:00 98.8 122 21 170/99 96 10/24/16 22:22 94 Nasal Cannula 2.50 10/24/16 20:00 97.7 103 25 129/86 97 10/24/16 19:00 94 Nasal Cannula 4.00 10/24/16 16:00 98.0 102 20 150/86 96 10/24/16 15:06 96 Nasal Cannula 4.00 10/24/16 12:00 97.0 100 15 143/87 92 10/25/16 07:00 Intake Total 1353 ml Output Total 1750 ml Balance -397 ml Constitutional Vital Signs Date Time Temp Pulse Resp B/P Pulse Ox O2 Delivery O2 Flow Rate FiO2 10/25/16 08:00 99 2.50 10/25/16 08:00 98.5 105 16 173/83 100 10/25/16 07:00 97 Nasal Cannula 4.00 10/25/16 04:23 22 10/25/16 04:00 98.8 117 16 152/94 97 10/25/16 00:00 98.8 122 21 170/99 96 10/24/16 22:22 94 Nasal Cannula 2.50 10/24/16 20:00 97.7 103 25 129/86 97 10/24/16 19:00 94 Nasal Cannula 4.00 10/24/16 16:00 98.0 102 20 150/86 96 10/24/16 15:06 96 Nasal Cannula 4.00 10/24/16 12:00 97.0 100 15 143/87 92 10/25/16 07:00 Intake Total 1353 ml Output Total 1750 ml Balance -397 ml Review of Systems/Exam Exam The patient is confused, oriented to self. Cranial nerve examination demonstrates the pupils to be equal, round, and reactive to light. Extra-ocular movements are intact with normal convergence. Facial motor function appears normal and symmetrical. Face sensation, hearing, visual acosta, and olfaction can not be assessed properly due to the patients condition. The patient has an intact corneal reflex and a gag reflex. Sternocleidomastoid and trapezius have normal and symmetrical strength. Other cranial nerves are intact. Cervical spine in a [place] collar Muscle testing reveals normal bulk and tone overall without rigidity, spasticity , fasciculations, or atrophy. Muscle strength is 5/5 in all muscle groups of both upper and lower extremities. Deep tendon reflexes are 1+ and symmetrical in the biceps, triceps, and brachioradialis, bilaterally, in the upper extremities. In the lower extremities , the patellar and Achilles are 1+, bilaterally. There is a bilateral plantar flexion response. Hoffmanns sign is negative. There is no clonus or other abnormal reflexes noted. Cerebellar examination is limited due to the patient condition, but no obvious deficits are noted. Medications Current Medications Current Medications Sodium Chloride 2 ml 2 ml UNSCH PRN IV FLUSH FLUSH AFTER USING IV ACCESS; Start 10/21/16 at 22:45; Stop 10/22/16 at 08:41; Status DC Sodium Chloride (NS 1000 ml Inj) 1,000 ml @ 60 mls/hr [id number] IV Last administered on 10/22/16t 00:38; Start 10/21/16 at 23:49; Stop 10/22/16 at 09:54 ; Status DC Sodium Chloride (NS Flush) 2 ml UNSCH PRN IV FLUSH FLUSH AFTER USING IV ACCESS ; Start 10/22/16 at 00:00 Sodium Chloride (NS Flush) 2 ml BID IV FLUSH Last administered on 10/25/16 07: 46; Start 10/22/16 at 09:00 Ondansetron HCl (Zofran Inj) 4 mg Q6H PRN IV NAUSEA OR VOMITING Last administered on 10/22/16 00:39; Start 10/22/16 at 00:00 Pantoprazole Sodium (Protonix) 40 mg Q24H PO Last administered on 10/22/16 00: 38; Start 10/22/16 at 00:00; Stop 10/22/16 at 21:12; Status DC Bisacodyl (Dulcolax Ec) 10 mg Q12H PRN PO CONSTIPATION; Start 10/22/16 at 00:00 Docusate Sodium (Colace) 100 mg BID PO Last administered on 10/24/16 09:40; Start 10/22/16 at 09:00; Stop 10/24/16 at 18:07; Status DC Miscellaneous Information (Post-op Orders (for Pharmacy)) STAT ONCE XX ; Start 10/22/16 at 00:00; Stop 10/22/16 at 07:08; Status DC Oxycodone/ Acetaminophen (Percocet 5-325 Mg) 1 tab Q4H PRN PO PAIN SCALE 3 TO 10 Last administered on 10/25/16 10:15; Start 10/22/16 at 00:00 Morphine Sulfate (Morphine Inj) 4 mg Q3H PRN IV 6-10 Last administered on 09:55; Start 10/22/16 at 00:00; Stop 10/24/16 at 11:55; Status DC Naloxone HCl (Narcan Inj) 0.4 mg UNSCH PRN IV SEE LABEL COMMENTS; Start at 00:00 Magnesium Hydroxide (Milk Of Magnesia Liq) 30 ml HS PO Last administered on 20:19; Start 10/22/16 at 21:00 Lactulose (Lactulose Liq) 30 ml BID PO Last administered on 10/22/16 20:48; Start 10/22/16 at 09:00; Stop 10/23/16 at 07:55; Status DC Clonazepam (KlonoPIN) 0.5 mg DAILY PO Last administered on 10/24/16 09:41; Start 10/23/16 at 09:00; Status Hold Diclofenac Sodium (Voltaren Dr) 75 mg DAILY PO Last administered on 10/23/16 08:37; Start 10/22/16 at 13:00; Stop 10/23/16 at 09:31; Status DC Glimepiride (Amaryl) 2 mg DAILY PO Last administered on 10/23/16 08:37; Start 10/22/16 at 13:00; Stop 10/23/16 at 09:31; Status DC Insulin Human Isoph/Insulin Regular (NovoLIN 70/30 INJ) 6 units TIDAC SQ Last administered on 10/24/16 10:30; Start 10/22/16 at 17:00; Status Hold Metformin HCl (Glucophage) 500 mg BIDPC PO Last administered on 10/23/16 08:37 ; Start 10/22/16 at 13:00; Stop 10/23/16 at 09:31; Status DC Pantoprazole Sodium (Protonix) 40 mg DAILY PO Last administered on 10/24/16 09 :40; Start 10/22/16 at 13:00 Potassium Chloride (KCl) 10 meq BID PO Last administered on 10/24/16 20:19; Start 10/22/16 at 13:00 Potassium Chloride (KCl) 10 meq DAILY PO Last administered on 10/23/16 08:44; Start 10/23/16 at 09:00 Lisinopril (Prinivil) 40 mg DAILY PO Last administered on 10/25/16 08:16; Start 10/22/16 at 13:15 Lactulose (Lactulose Liq) 15 ml BID PO Last administered on 10/23/16 20:06; Start 10/22/16 at 13:15; Stop 10/24/16 at 03:33; Status DC Furosemide (Lasix) 40 mg DAILY PO Last administered on 10/23/16 08:37; Start 10/22/16 at 13:00; Stop 10/23/16 at 09:31; Status DC Dextrose (D50w (Vial) Inj) 25 ml UNSCH PRN IV PUSH HYPOGLYCEMIA - SEE COMMENTS ; Start 10/22/16 at 23:00 Glucagon (Glucagon Inj) 1 mg UNSCH PRN OTHER HYPOGLYCEMIA-SEE COMMENTS; Start 10/22/16 at 23:00 Insulin Aspart (NovoLOG SUPPLEMENTAL SCALE) 1 ACHS SLIDING SCALE SQ Last administered on 10/22/16 23:35; Start 10/22/16 at 23:00; Stop 10/24/16 at 11:55 ; Status DC Clonidine 0.1 mg 0.1 mg Q6H PRN PO bp>160/90 Last administered on 10/25/16 00: 22; Start 10/23/16 at 09:30 Sodium Chloride 1,000 ml @ 60 mls/hr [id number] IV Last administered on 10:46; Start 10/23/16 at 10:00; Stop 10/23/16 at 18:19; Status DC Ceftriaxone Sodium 1000 mg/ Sodium Chloride 100 ml @ 200 mls/hr Q24H IV Last administered on 10/23/16 16:25; Start 10/23/16 at 16:00; Stop 10/24/16 at 14:21 ; Status DC Sodium Chloride (NS 1000 ml Inj) 1,000 ml @ 60 mls/hr [id number] IV ; Start at 02:30; Stop 10/24/16 at 02:33; Status DC Lactulose (Lactulose Liq) 30 ml QID PO Last administered on 10/25/16 08:16; Start 10/24/16 at 03:45 Insulin Aspart (NovoLOG SUPPLEMENTAL SCALE) 1 ACHS SLIDING SCALE SQ Last administered on 10/25/16 06:17; Start 10/24/16 at 16:00 Morphine Sulfate (Morphine Inj) 1 mg Q3H PRN IV breakthrough pain; Start at 12:00; Stop 10/24/16 at 16:13; Status DC Rifaximin (Xifaxan) 550 mg BID PO Last administered on 10/25/16 08:22; Start 10/24/16 at 13:00 Nitroglycerin 0.4 mg 0.4 mg Q5M PRN SL X 3 doses for chest pain; Start at 11:45 Sodium Chloride 1,000 ml @ 84 mls/hr [id number] PRN IV if po < 50%; Start at 12:00 Piperacillin Sod/ Tazobactam Sod 100 ml @ 200 mls/hr Q6H IV Last administered on 10/25/16 08:17; Start 10/24/16 at 16:00 Azithromycin/ Sodium Chloride (Zithromax Inj/ NS 250 ml Inj) 250 ml @ 250 mls/ hr Q24H IV Last administered on 10/24/16 15:38; Start 10/24/16 at 15:00 Albuterol/ Ipratropium (Duoneb Neb) 1 ampule QID NEB INH Last administered on 10/25/16 07:58; Start 10/24/16 at 16:00 Albuterol Sulfate (Albuterol Neb) 2.5 mg Q2HR NEB PRN NEB sob; Start 10/24/16 at 14:30 Haloperidol Lactate 2 mg 2 mg Q4H PRN IV agitation Last administered on 23:58; Start 10/24/16 at 16:15 Vancomycin HCl/ Sodium Chloride (Vancomycin Inj/ NS 250 ml Inj) 262.5 ml @ 262.5 mls/ hr ONCE ONCE IV Last administered on 10/24/16 20:20; Start at 19:00; Stop 10/24/16 at 19:59; Status DC Docusate Sodium (Colace Liq) 100 mg Q12HR PO Last administered on 10/25/16 08: 16; Start 10/24/16 at 21:00 Medical Decision Making MDM Remarks Last Impressions Chest X-Ray 10/24/16 0000 Signed Impressions: Service Date/Time: Monday, October 24, 2016 11:57 - CONCLUSION: Increasing consolidation changes left base. Parminder Pierson MD FACR Abdomen/Pelvis CT 10/24/16 0000 Signed Impressions: Service Date/Time: Monday, October 24, 2016 14:46 - CONCLUSION: Cirrhosis with moderate ascites. Pleural effusion, mainly on the left. Lobular density in the region of the left adrenal gland is felt to mainly relate to varices, however an adrenal mass is not excluded. Further evaluation with contrasted CT versus MRI would be suggested. Fluid containing right inguinal hernia. Martín Mcneil MD Head CT 10/23/16 1250 Signed Impressions: Service Date/Time: Sunday, October 23, 2016 13:28 - CONCLUSION: 1. No acute abnormality is seen. The previously seen hemorrhage in the right parietal region is no longer seen. 2. Atrophy. 3. Chronic right maxillary sinus disease. Martín Keenan MD Renal Ultrasound 10/23/16 0000 Signed Impressions: Service Date/Time: Sunday, October 23, 2016 17:06 - CONCLUSION: 1. Poor visualization of the kidneys as described above. 2. No hydronephrosis is noted. 3. Ascites. Venu Prasad MD Thoracic Spine CT 10/22/16 0000 Signed Impressions: Service Date/Time: Saturday, October 22, 2016 10:37 - CONCLUSION: 1. There appear to be nondisplaced fractures involving the posterior lamina bilaterally at C7. This is suspicious for an unstable injury. 2. Subacute to chronic compression fracture along the superior endplate of T1 3. Primary degenerative changes with disc degeneration and disc space narrowing involving the mid to lower thoracic spine 4. Old compression fracture along the superior endplate of L1 Aaron Ambriz MD Last Impressions Head CT 10/23/16 1250 Signed Impressions: Service Date/Time: Sunday, October 23, 2016 13:28 - CONCLUSION: 1. No acute abnormality is seen. The previously seen hemorrhage in the right parietal region is no longer seen. 2. Atrophy. 3. Chronic right maxillary sinus disease. Martín Keenan MD Renal Ultrasound 10/23/16 0000 Signed Impressions: Service Date/Time: Sunday, October 23, 2016 17:06 - CONCLUSION: 1. Poor visualization of the kidneys as described above. 2. No hydronephrosis is noted. 3. Ascites. Venu Prasad MD Thoracic Spine CT 10/22/16 0000 Signed Impressions: Service Date/Time: Saturday, October 22, 2016 10:37 - CONCLUSION: 1. There appear to be nondisplaced fractures involving the posterior lamina bilaterally at C7. This is suspicious for an unstable injury. 2. Subacute to chronic compression fracture along the superior endplate of T1 3. Primary degenerative changes with disc degeneration and disc space narrowing involving the mid to lower thoracic spine 4. Old compression fracture along the superior endplate of L1 Aaron Ambriz MD Chest X-Ray 10/21/16 2553 Signed Impressions: Service Date/Time: Friday, October 21, 2016 22:44 - CONCLUSION: 1. Cardiomegaly with bibasilar atelectasis. Oskar Chavira MD Plan Plan Remarks Bilaminar C7 fracture and possible mild anterior T1 compression fracture following ground-level fall. Closed head injury with SAH, stable CT Attending Statement Neurological. Continue neuro checks in a serial fashion. CT of the head stable S/p paracenthesis Encephalopathy. Hepatic. Continue Xifaxan and lactulose Cervical fracture. Continue external immobilization in [place] J collar. No other neurosurgical intervention indicated. Patient may be mobilized from bed as tolerated. Pulmonary. aggressive pulmonary toilette, nasotracheal suction, and breathing treatments with nebulizers. PT and OT evaluation Nutrition. NPO Renal. monitor closely urine output, BUN and creatinine Endocrine. Monitor serial Acu checks and SSI as needed in detail ID Pneumonia. Continue Zosyn and azithromycin Protonix for stress ulcer prophylaxis Alistair hose and SCD's for DVT prophylaxis Gurjit Burch MD Oct 25, 2016 12:04
[2016-10-25 12:50] LABS: HEMOGLOBIN A1a 1.1 %; HEMOGLOBIN A1b 0.7 %; HEMOGLOBIN Ao 83.4 %; HEMOGLOBIN F 1.6 %; HEMOGLOBIN LA1C 1.8 %; HEMOGLOBIN P3 3.5 %
--- NOTE | 2016-10-25 13:41 | PD.CONS ---
HPI History of Present Illness This is a 75 year old [male] w/ hx DM2, HTN, cirrhosis, ascites, thrombocytopenia who was transferred to [facility] from [place] after a fall in the shower. He was found to have fx C4, C7, T1 and right parietal contusion, being managed nonoperatively. Pt non contributory, hx obtained from EMR. Paracentesis was attempted twice, on 2nd try 350cc obtained. The fluid shows 608 WBC, 42 neutrophil count. GI has been consulted for possible SBP. PFSH Past Medical History Diabetes mellitus. Hypertension. Liver cirrhosis with ascites. Thrombocytopenia Past Surgical History Extensive surgeries for bile duct reconstruction in 1970s Coded Allergies: No Known Allergies (Unverified , 10/21/16) Family History unk Social History unk Review of Systems ROS non contributory GI Exam Vitals I&O Vital Signs Date Time Temp Pulse Resp B/P Pulse Ox O2 Delivery O2 Flow Rate FiO2 10/25/16 12:00 98.3 117 19 150/87 94 10/25/16 08:00 99 2.50 10/25/16 08:00 98.5 105 16 173/83 100 10/25/16 07:00 97 Nasal Cannula 4.00 10/25/16 04:23 22 10/25/16 04:00 98.8 117 16 152/94 97 10/25/16 00:00 98.8 122 21 170/99 96 10/24/16 22:22 94 Nasal Cannula 2.50 10/24/16 20:00 97.7 103 25 129/86 97 10/24/16 19:00 94 Nasal Cannula 4.00 10/24/16 16:00 98.0 102 20 150/86 96 10/24/16 15:06 96 Nasal Cannula 4.00 I/O 10/24/16 10/24/16 10/24/16 10/25/16 10/25/16 10/25/16 07:00 15:00 23:00 07:00 15:00 23:00 Intake Total 120 ml 0 ml 767 ml 586 ml Output Total 500 ml 850 ml 900 ml Balance -380 ml 0 ml -83 ml -314 ml Intake Oral 120 ml 0 ml 0 ml IV Total 567 ml 386 ml Other 200 ml 200 ml Output Urine Total 500 ml 600 ml 700 ml Drainage Total 250 ml 200 ml # Voids 1 # Bowel Movements 0 Imaging Last Impressions Chest X-Ray 10/24/16 0000 Signed Impressions: Service Date/Time: Monday, October 24, 2016 11:57 - CONCLUSION: Increasing consolidation changes left base. Parminder Pierson MD FACR Abdomen/Pelvis CT 10/24/16 0000 Signed Impressions: Service Date/Time: Monday, October 24, 2016 14:46 - CONCLUSION: Cirrhosis with moderate ascites. Pleural effusion, mainly on the left. Lobular density in the region of the left adrenal gland is felt to mainly relate to varices, however an adrenal mass is not excluded. Further evaluation with contrasted CT versus MRI would be suggested. Fluid containing right inguinal hernia. Martín Mcneil MD Head CT 10/23/16 1250 Signed Impressions: Service Date/Time: Sunday, October 23, 2016 13:28 - CONCLUSION: 1. No acute abnormality is seen. The previously seen hemorrhage in the right parietal region is no longer seen. 2. Atrophy. 3. Chronic right maxillary sinus disease. Martín Keenan MD Renal Ultrasound 10/23/16 0000 Signed Impressions: Service Date/Time: Sunday, October 23, 2016 17:06 - CONCLUSION: 1. Poor visualization of the kidneys as described above. 2. No hydronephrosis is noted. 3. Ascites. Venu Prasad MD Thoracic Spine CT 10/22/16 0000 Signed Impressions: Service Date/Time: Saturday, October 22, 2016 10:37 - CONCLUSION: 1. There appear to be nondisplaced fractures involving the posterior lamina bilaterally at C7. This is suspicious for an unstable injury. 2. Subacute to chronic compression fracture along the superior endplate of T1 3. Primary degenerative changes with disc degeneration and disc space narrowing involving the mid to lower thoracic spine 4. Old compression fracture along the superior endplate of L1 Aaron Ambriz MD Laboratory Test 10/24/16 10/24/16 10/24/16 10/25/16 16:00 16:50 22:39 04:30 Peritoneal Fluid WBC 608 /MM3 Peritoneal Fluid RBC 452 /MM3 Peritoneal Fluid Neutrophils 32 % Peritoneal Fluid Lymphocytes 42 % Peritoneal Fluid Monocytes 2 % Peritoneal Fluid Mesothelial 21 % Cells Peritoneal Fluid Histiocytes 3 % Total Creatine Kinase 116 U/L 100 U/L Troponin I 0.03 NG/ML 0.04 NG/ML Lactate Dehydrogenase 399 U/L Total Protein 6.2 GM/DL 5.8 GM/DL White Blood Count 6.1 TH/MM3 Red Blood Count 3.08 MIL/MM3 Hemoglobin 11.7 GM/DL Hematocrit 33.3 % Mean Corpuscular Volume 108.2 FL Mean Corpuscular Hemoglobin 38.1 PG Mean Corpuscular Hemoglobin 35.2 % Concent Red Cell Distribution Width 16.0 % Platelet Count 83 TH/MM3 Mean Platelet Volume 7.6 FL Neutrophils (%) (Auto) 72.5 % Lymphocytes (%) (Auto) 12.9 % Monocytes (%) (Auto) 12.0 % Eosinophils (%) (Auto) 2.0 % Basophils (%) (Auto) 0.6 % Neutrophils # (Auto) 4.4 TH/MM3 Lymphocytes # (Auto) 0.8 TH/MM3 Monocytes # (Auto) 0.7 TH/MM3 Eosinophils # (Auto) 0.1 TH/MM3 Basophils # (Auto) 0.0 TH/MM3 CBC Comment AUTO DIFF Differential Comment AUTO DIFF CONFIRMED Platelet Estimate LOW Platelet Morphology Comment NORMAL Sodium Level 148 MEQ/L Potassium Level 4.3 MEQ/L Chloride Level 110 MEQ/L Carbon Dioxide Level 30.0 MEQ/L Anion Gap 8 MEQ/L Blood Urea Nitrogen 31 MG/DL Creatinine 0.97 MG/DL Estimat Glomerular Filtration 76 ML/MIN Rate Random Glucose 155 MG/DL Calcium Level 8.6 MG/DL Magnesium Level 1.8 MG/DL Total Bilirubin 5.5 MG/DL Aspartate Amino Transf 45 U/L (AST/SGOT) Alanine Aminotransferase 39 U/L (ALT/SGPT) Alkaline Phosphatase 97 U/L Ammonia 41 MCMOL/L Albumin 2.1 GM/DL Date/Time Procedure Status Source Growth 10/25/16 04:30 Aerobic Blood Culture Received Blood Peripheral Pending 10/25/16 04:30 Anaerobic Blood Culture Received Blood Peripheral Pending 10/24/16 22:39 Aerobic Blood Culture - Preliminary Resulted Blood Peripheral NO GROWTH IN 1 DAY 10/24/16 22:39 Anaerobic Blood Culture - Preliminary Resulted Blood Peripheral NO GROWTH IN 1 DAY 10/24/16 16:00 Gram Stain - Final Resulted Fluid Peritoneal Fluid 10/24/16 16:00 Body Fluid Culture - Preliminary Resulted Fluid Peritoneal Fluid NO GROWTH IN 24 HOURS. 10/23/16 11:05 Urine Culture - Final Complete Urine Clean Catch <10,000 CFU/ML GRAM POSITIVE DECLAN Physical Examination HEENT: PERRL; normocephalic; atraumatic; + icterus CHEST: did not cooperate with exam CARDIAC: tachy ABDOMEN: Soft, distended, nontender; scar across abd; bowel sounds are present in all four quadrants. EXTREMITIES: No clubbing, cyanosis, or edema. SKIN: Normal; no rash; mild jaundice ACCOUNTS RECEIVABLE ANALYST: confused, mildly agitated Assessment and Plan Plan ASSESSMENT - hepatic encephalopathy - NH was 102. lactulose, xifaxan - cirrhosis - elevated bili, jaundice, mild elevation AST. CT 10-24-16 --> Cirrhosis with moderate ascites. Pleural effusion, mainly on the left. Lobular density in the region of the left adrenal gland is felt to mainly relate to varices, however an adrenal mass is not excluded. Further evaluation with contrasted CT versus MRI would be suggested. Fluid containing right inguinal hernia. - ascites - periotoneal WBC 608, neutrophil 42. poss SBP. cytology pending. No growth 24h. on zosyn, azithromycin, had 1 x vanc. - sepsis - per primary, SBP vs HCAP - CHIQUIS - per primary PLAN - continue lactulose, xifaxan - continue abx - await peritoneal cytology - repeat paracentesis in few days with cell count, albumin level - monitor labs - supportive care This pt seen by myself and DR Zhou and this note is written on his behalf Briana Hanks Oct 25, 2016 1:41 pm
[2016-10-25] MEDS: AZITHROMYCIN INJ 500 MG in SODIUM CHLOR 0.9% 250 ML INJ 250 ML IV SCH (14:13)
--- NOTE | 2016-10-25 16:30 | EKG ---
Date Performed: 10/24/2016 Time Performed: 12:04:35 PTAGE: 75 years EKG: SINUS TACHYCARDIA POOR R WAVE PROGRESSION ABNORMAL RHYTHM ECG PREVIOUS TRACING : 10/22/2016 00.35 DOCTOR: Ramakrishna Burden Interpretating Date/Time 10/25/2016 16:29:05
--- NOTE | 2016-10-25 16:30 | EKG ---
Date Performed: 10/24/2016 Time Performed: 17:53:31 PTAGE: 75 years EKG: SINUS TACHYCARDIA LOW QRS VOLTAGE IN PRECORDIAL LEADS ABNORMAL RHYTHM ECG PREVIOUS TRACING : 10/24/2016 12.04 Since previous tracing, no significant change noted DOCTOR: Ramakrishna Burden Interpretating Date/Time 10/25/2016 16:29:17
--- NOTE | 2016-10-25 16:31 | EKG ---
Date Performed: 10/24/2016 Time Performed: 23:15:28 PTAGE: 75 years EKG: Sinus tachycardia Right axis deviation ST junctional depression is nonspecific Generalized low QRS voltages Borderline ECG PREVIOUS TRACING 10/24/2016 17.53.31 DOCTOR: Ramakrishna Burden Interpretating Date/Time 10/25/2016 16:29:57
--- NOTE | 2016-10-25 18:15 | HHI.CCPN ---
Subjective Remarks/Hospital Course This 75 year old male who was transferred from [facility] on 10/21/16 after he slipped in the shower and fell injuring his head and neck. He was noted to have fracture of C4, C7 and T1 and CT of the head showed closed head injury with right parietal contusion. Patient was transferred to [place] for trauma and neurosurgery evaluation. 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 Initially was admitted to the ICU but was transferred to the floor next day. Patient was intermittently confused yesterday but became worse today morning, increasing confusion and delirium. Ammonia level was checked which was 102. Due to confusion and intermittent agitation patient was transferred to ICU and critical care medicine was consulted for management of hepatic encephalopathy, ascites. I evaluated the patient immediately in the ICU. He appears in moderate distress and agitated intermittently. Bedside ultrasound shows fluid pockets in the bilateral lower quadrants but I was unable to drain any significant amount of fluid. A stat CT abdomen pelvis is pending at this time. I attempted a second time and was able to drain a pocket of ascites in RLQ. Slightly yellow straw colored fluid was removed 350 ML ( Patient moved during procedure and catheter stopped draining, probably slipped out of fluid pocket). Continue lactulose 30 mL 4 times a day and Xifaxan. It was also noted that patient has increasing infiltrates on the left lower lobe indicating probable HCAP. Patient is currently on Zosyn and azithromycin which will be continued. 10/25: Cytology pending. Renal function mildly improved. Ammonia declined. Remains encephalopathic. Objective Vital Signs Date Time Temp Pulse Resp B/P Pulse Ox O2 Delivery O2 Flow Rate FiO2 10/25/16 16:00 98.2 116 24 163/91 99 10/25/16 08:00 2.50 10/25/16 07:00 Nasal Cannula Intake and Output 10/24/16 10/24/16 10/25/16 08:00 16:00 00:00 Intake Total 120 ml 0 ml 767 ml Output Total 500 ml 850 ml Balance -380 ml 0 ml -83 ml Result Diagram: 10/25/16 0430 10/25/16 0430 Other Results Microbiology Date/Time Procedure Status Source Growth 10/23/16 11:05 Urine Culture - Final Complete Urine Clean Catch <10,000 CFU/ML GRAM POSITIVE DECLAN Imaging CT abdomen pelvis Moderate ascites CXR LLL pneumonia Objective Remarks GENERAL: Ill-appearing. SKIN: Warm and dry. HEAD: Normocephalic and atraumatic. EYES: No injection, drainage, or hyphema noted. ENT: No nasal drainage noted. NECK: Supple and the trachea is midline. Patient is currently in [place] collar cervical immobilization. CARDIOVASCULAR: Regular rate and rhythm. No murmurs. No JVD. RESPIRATORY: Breath sounds are equal bilaterally with no accessory muscle use, wheezing, rhonchi, or crackles. GASTROINTESTINAL: Distended abdomen with multiple surgical scars. BS present. No peritoneal irritation. MUSCULOSKELETAL: Bilateral lower extremity edema. NEUROLOGICAL: Somnolent, wakes up easily, intermittently confused and agitated. Slurred speech. Moves all extremities equally. Procedures none Date of Insertion: Oct 24, 2016 A/P Assessment and Plan NEURO: Acute hepatic encephalopathy Closed head injury with right parietal contusion, SAH Bilaminar C7 fracture and possible mild anterior T1 compression fracture - Current encephalopathy appears to be hepatic encephalopathy, ammonia level is 102 - Continue Xifaxan and lactulose - As needed Haldol for agitation. Avoid benzodiazepines, and opiates - Trend ammonia level, falling with rx. RESP: Respiratory insufficiency Healthcare associated pneumonia - Nasal cannula oxygen - DuoNeb every 6 hours when necessary, aggressive pulmonary toilet - Continue Zosyn and azithromycin pending cultures. CV: History of hypertension - Normal saline IV fluids at 84 mL per hour, reduce. - Monitor blood pressure and heart rate GI: Ascites Liver cirrhosis Rule out SBP Hyperammonemia - Status post paracentesis with 350 mL of free-flowing straw-colored fluid removed - Send for further studies. Zosyn should cover for probable SBP - Continue Xifaxan and lactulose : Acute kidney injury -Monitor renal function closely. Wan catheter. ID: Sepsis HCAP Possible SBP - Continue Zosyn and azithromycin. Give single dose of vancomycin - Check blood urine and sputum and ascitic fluid cultures HEME: Thrombocytopenia - Monitor CBC, CMP, coags - Thrombocytopenia secondary to liver cirrhosis ENDO: Type 2 diabetes - Electrolyte replacement per protocol - Sliding-scale insulin PROPH: - Bilateral lower extremity SCDs. Avoid chemical prophylaxis due to thrombocytopenia and closed head injury. IV Protonix LINES: - Utilize peripheral IVs, central line if needed Overall impression: Primary problem is chronic liver disease. Probable pneumonia and ? SBP. Jos Evans MD Oct 25, 2016 18:15
[2016-10-25] MEDS: MAGNESIUM HYDROXIDE SUSP 30 ML CUP PO SCH (19:41)
[2016-10-25] MEDS: HALOPERIDOL LACTATE 5 MG/ML AMP IV PRN (22:56)
[2016-10-26] VITALS (10 sets, daily range): BP systolic 133–167; BP diastolic 68–95; PULSE 87–117; RESP 15–18; TEMP 96.6–98.8; O2SAT 92–96
[2016-10-26] MEDS: oxyCODONE/ACETAMINOPHEN 5 MG/325 MG TAB PO PRN ×2 (01:41→23:21)
[2016-10-26] MEDS: cloNIDine HCL 0.1 MG TAB PO PRN (03:10)
[2016-10-26] MEDS: PIPERACIL-TAZO 4.5 GM PREMIX 100 ML IV SCH ×4 (03:10→23:06)
[2016-10-26 04:49] LABS: ANION GAP 8 MEQ/L (5-15); AST (GOT) 52 U/L (15-37); BICARBONATE 27.2 MEQ/L (21.0-32.0); BLOOD UREA NITROGEN 23 MG/DL (7-18); CHLORIDE 110 MEQ/L (98-107); GLOMERULAR FILTRATION RATE 107 ML/MIN (>89); SODIUM (NA) 145 MEQ/L (136-145)
[2016-10-26 04:50] LABS: ALT (GPT) 38 U/L (12-78)
[2016-10-26 04:52] LABS: ALKALINE PHOSPHATASE 93 U/L (45-117); TOTAL BILIRUBIN ADULT 4.1 MG/DL (0.2-1.0)
[2016-10-26] MEDS: INSULIN ASPART SUPPLEMENTAL SCALE SQ SCH ×4 (07:00→21:00)
[2016-10-26] MEDS: SODIUM CHLORIDE 0.9% FLUSH 10 ML FLUSH IV FLUSH SCH ×2 (07:39→21:27)
[2016-10-26] MEDS: LISINOPRIL 20 MG TAB PO SCH (07:40)
[2016-10-26] MEDS: LACTULOSE SYRUP 20 GM/30 ML CUP PO SCH ×4 (07:40→21:26)
[2016-10-26] MEDS: PANTOPRAZOLE SOD 40 MG DELAYED RELEASE TAB PO SCH (07:40)
[2016-10-26] MEDS: RIFAXIMIN 550 MG TAB PO SCH ×2 (07:40→21:26)
[2016-10-26] MEDS: DOCUSATE SODIUM 100 MG/10 ML UDC PO SCH ×2 (07:41→21:26)
[2016-10-26] MEDS: POTASSIUM CHLORIDE 10 MEQ CONTROLLED RELEASE TAB PO SCH ×3 (07:43→21:25)
[2016-10-26] MEDS: RESP: ALBUTEROL 2.5 MG/IPRATROPIUM 0.5 MG NEB (SCH) INH ×4 (08:14→20:31)
--- NOTE | 2016-10-26 09:09 | RADRPT ---
EXAM DATE/TIME: 10/26/2016 08:05 [place] COMPARISON: No previous studies available for comparison. INDICATIONS : NG tube placement. MEDICAL HISTORY : cirrhosis, ascites, diabetes, hypertension, GERD, gastritis, SURGICAL HISTORY : None. ENCOUNTER: Subsequent ACUITY: 4 - 6 days PAIN SCORE: 0/10 LOCATION: Bilateral abdomen FINDINGS: Nasogastric catheter tip projects near the GE junction but does not appear to be in the stomach. Air is seen throughout the colon. Loops of nondistended air-filled small bowel are noted in the left abdo men. No gross free air or pneumatosis. Postsurgical features are noted in the soft tissues. CONCLUSION: 1. Nasogastric catheter tip projects in the region of the GE junction and does not appear in to be in the stomach. 2. Nonobstructive bowel gas pattern. Misha Sutton MD on October 26, 2016 at 9:05 Board Certified Radiologist. This report was verified electronically.
[2016-10-26] MEDS ORDERED: hydrALAZINE HCL 20 MG/ML VIAL IV PUSH PRN (09:15)
--- NOTE | 2016-10-26 12:00 | HHI.CCPN ---
Subjective Remarks/Hospital Course This 75 year old male who was transferred from [facility] on 10/21/16 after he slipped in the shower and fell injuring his head and neck. He was noted to have fracture of C4, C7 and T1 and CT of the head showed closed head injury with right parietal contusion. Patient was transferred to [place] for trauma and neurosurgery evaluation. 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 Initially was admitted to the ICU but was transferred to the floor next day. Patient was intermittently confused yesterday but became worse today morning, increasing confusion and delirium. Ammonia level was checked which was 102. Due to confusion and intermittent agitation patient was transferred to ICU and critical care medicine was consulted for management of hepatic encephalopathy, ascites. I evaluated the patient immediately in the ICU. He appears in moderate distress and agitated intermittently. Bedside ultrasound shows fluid pockets in the bilateral lower quadrants but I was unable to drain any significant amount of fluid. A stat CT abdomen pelvis is pending at this time. I attempted a second time and was able to drain a pocket of ascites in RLQ. Slightly yellow straw colored fluid was removed 350 ML ( Patient moved during procedure and catheter stopped draining, probably slipped out of fluid pocket). Continue lactulose 30 mL 4 times a day and Xifaxan. It was also noted that patient has increasing infiltrates on the left lower lobe indicating probable HCAP. Patient is currently on Zosyn and azithromycin which will be continued. 10/25: Cytology pending. Renal function mildly improved. Ammonia declined. Remains encephalopathic. 10/26: Afebrile. No cough. A little more responsive. Objective Vital Signs Date Time Temp Pulse Resp B/P Pulse Ox O2 Delivery O2 Flow Rate FiO2 10/26/16 10:00 117 10/26/16 08:14 96 Nasal Cannula 2.00 10/26/16 08:00 98.0 16 162/95 Intake and Output 10/25/16 10/25/16 10/26/16 08:00 16:00 00:00 Intake Total 586 ml 315 ml 404 ml Output Total 900 ml 800 ml 750 ml Balance -314 ml -485 ml -346 ml Result Diagram: 10/25/16 0430 10/26/[address] abdomen pelvis Moderate ascites CXR LLL pneumonia Objective Remarks GENERAL: Ill-appearing. SKIN: Warm and dry. HEAD: Normocephalic and atraumatic. EYES: No injection, drainage, or hyphema noted. ENT: No nasal drainage noted. NECK: Supple and the trachea is midline. In cervical collar immobilization. No obstruction to airway. CARDIOVASCULAR: Regular rate and rhythm. No murmurs. No JVD. RESPIRATORY: Breath sounds are equal bilaterally with no accessory muscle use, wheezing, rhonchi, or crackles. Comfortable pattern. GASTROINTESTINAL: Distended abdomen with multiple surgical scars. BS present. No peritoneal irritation. MUSCULOSKELETAL: Bilateral lower extremity edema. Well perfused. NEUROLOGICAL: Lethargic, wakes up easily, intermittently confused and agitated. Slurred speech. Moves all extremities equally. Procedures none Date of Insertion: Oct 24, 2016 A/P Assessment and Plan NEURO: Acute hepatic encephalopathy Closed head injury with right parietal contusion, SAH Bilaminar C7 fracture and possible mild anterior T1 compression fracture - Current encephalopathy appears to be hepatic encephalopathy, ammonia level is 102 - Continue Xifaxan and lactulose - As needed Haldol for agitation. Avoid benzodiazepines, and opiates - Trend ammonia level, falling with rx. RESP: Respiratory insufficiency Healthcare associated pneumonia - Nasal cannula oxygen - DuoNeb every 6 hours when necessary, aggressive pulmonary toilet - Continue Zosyn and azithromycin pending cultures. CV: History of hypertension - Normal saline IV fluids at 84 mL per hour, reduce. - Monitor blood pressure and heart rate GI: Ascites Liver cirrhosis Rule out SBP Hyperammonemia - Status post paracentesis with 350 mL of free-flowing straw-colored fluid removed - Send for further studies. Zosyn should cover for probable SBP - Continue Xifaxan and lactulose : Acute kidney injury -Monitor renal function closely. Wan catheter. ID: Sepsis HCAP Possible SBP - Continue Zosyn and azithromycin. Give single dose of vancomycin - Check blood urine and sputum and ascitic fluid cultures HEME: Thrombocytopenia - Monitor CBC, CMP, coags - Thrombocytopenia secondary to liver cirrhosis ENDO: Type 2 diabetes - Electrolyte replacement per protocol - Sliding-scale insulin PROPH: - Bilateral lower extremity SCDs. Avoid chemical prophylaxis due to thrombocytopenia and closed head injury. IV Protonix LINES: - Utilize peripheral IVs, central line if needed Overall impression: Primary problem is chronic liver disease. Possible pneumonia and ? SBP. Renal function improving and bilirubin declining. Jos Evans MD Oct 26, 2016 12:00
[2016-10-26 14:40] LABS: BODY FLUID LDH 66 U/L (()); BODY FLUID LDH SOURCE PERITONEAL FLUID (())
--- NOTE | 2016-10-26 15:16 | HHI.GIFU ---
Subjective Remarks Pt resting in bed, in no apparent distress. He is more alert today. Says he is feeling "lousy" but denies n/v, abd pain. Objective Vitals I&O Vital Signs Date Time Temp Pulse Resp B/P Pulse Ox O2 Delivery O2 Flow Rate FiO2 10/26/16 12:00 98 10/26/16 12:00 98.8 98 15 136/76 95 10/26/16 10:00 117 10/26/16 08:14 96 Nasal Cannula 2.00 10/26/16 08:00 98.0 102 16 162/95 95 10/26/16 08:00 87 10/26/16 07:00 94 Nasal Cannula 3.00 10/26/16 04:00 97.7 98 17 167/88 95 10/26/16 00:00 97.7 114 17 159/95 92 10/25/16 20:00 97.9 116 17 153/87 96 10/25/16 19:49 96 Nasal Cannula 2.50 10/25/16 19:00 97 Nasal Cannula 2.50 10/25/16 16:00 98.2 116 24 163/91 99 I/O 10/25/16 10/25/16 10/25/16 10/26/16 10/26/16 10/26/16 07:00 15:00 23:00 07:00 15:00 23:00 Intake Total 586 ml 315 ml 404 ml 420 ml 315 ml Output Total 900 ml 800 ml 750 ml 600 ml 475 ml Balance -314 ml -485 ml -346 ml -180 ml -160 ml Intake Oral 0 ml 75 ml IV Total 386 ml 265 ml 404 ml 420 ml 240 ml Other 200 ml 50 ml Output Urine Total 700 ml 650 ml 650 ml 550 ml 250 ml Drainage Total 200 ml 150 ml 100 ml 50 ml 225 ml # Bowel Movements 2 3 1 Laboratory Laboratory Tests Test 10/26/16 03:47 Sodium Level 145 Potassium Level 4.0 Chloride Level 110 Carbon Dioxide Level 27.2 Anion Gap 8 Blood Urea Nitrogen 23 Creatinine 0.72 Estimat Glomerular Filtration 107 Rate Random Glucose 170 Calcium Level 7.8 Total Bilirubin 4.1 Aspartate Amino Transf 52 (AST/SGOT) Alanine Aminotransferase 38 (ALT/SGPT) Alkaline Phosphatase 93 Total Protein 5.5 Albumin 2.0 Date/Time Procedure Status Source Growth 10/25/16 04:30 Aerobic Blood Culture - Preliminary Resulted Blood Peripheral NO GROWTH IN 1 DAY 10/25/16 04:30 Anaerobic Blood Culture - Preliminary Resulted Blood Peripheral NO GROWTH IN 1 DAY 10/24/16 16:00 Gram Stain - Final Resulted Fluid Peritoneal Fluid 10/24/16 16:00 Body Fluid Culture - Preliminary Resulted Fluid Peritoneal Fluid NO GROWTH IN 48 HOURS. 10/23/16 11:05 Urine Culture - Final Complete Urine Clean Catch <10,000 CFU/ML GRAM POSITIVE DECLAN Imaging Last Impressions Abdomen X-Ray 10/26/16 0000 Signed Impressions: Service Date/Time: Wednesday, October 26, 2016 08:05 - CONCLUSION: 1. Nasogastric catheter tip projects in the region of the GE junction and does not appear in to be in the stomach. 2. Nonobstructive bowel gas pattern. Misha Sutton MD Chest X-Ray 10/24/16 0000 Signed Impressions: Service Date/Time: Monday, October 24, 2016 11:57 - CONCLUSION: Increasing consolidation changes left base. Parminder Pierson MD FACR Abdomen/Pelvis CT 10/24/16 0000 Signed Impressions: Service Date/Time: Monday, October 24, 2016 14:46 - CONCLUSION: Cirrhosis with moderate ascites. Pleural effusion, mainly on the left. Lobular density in the region of the left adrenal gland is felt to mainly relate to varices, however an adrenal mass is not excluded. Further evaluation with contrasted CT versus MRI would be suggested. Fluid containing right inguinal hernia. Martín Mcneil MD Head CT 10/23/16 1250 Signed Impressions: Service Date/Time: Sunday, October 23, 2016 13:28 - CONCLUSION: 1. No acute abnormality is seen. The previously seen hemorrhage in the right parietal region is no longer seen. 2. Atrophy. 3. Chronic right maxillary sinus disease. Martín Keenan MD Renal Ultrasound 10/23/16 0000 Signed Impressions: Service Date/Time: Sunday, October 23, 2016 17:06 - CONCLUSION: 1. Poor visualization of the kidneys as described above. 2. No hydronephrosis is noted. 3. Ascites. Venu Prasad MD Thoracic Spine CT 10/22/16 0000 Signed Impressions: Service Date/Time: Saturday, October 22, 2016 10:37 - CONCLUSION: 1. There appear to be nondisplaced fractures involving the posterior lamina bilaterally at C7. This is suspicious for an unstable injury. 2. Subacute to chronic compression fracture along the superior endplate of T1 3. Primary degenerative changes with disc degeneration and disc space narrowing involving the mid to lower thoracic spine 4. Old compression fracture along the superior endplate of L1 Aaron Ambriz MD Physical Exam HEENT: PERRL; normocephalic; atraumatic; + jaundice. CHEST: CTA CARDIAC: RRR ABDOMEN: Soft,distended, nontender; no hepatosplenomegaly; bowel sounds are present in all four quadrants. abdominal fluid draining LLQ, reddish clear fluid EXTREMITIES: No clubbing, cyanosis, or edema. SKIN: Normal; no rash; mild jaundice. RELIABILITY SPECIALIST: more alert today Assessment and Plan Plan ASSESSMENT - hepatic encephalopathy - NH was 102, decreasing. lactulose, xifaxan - cirrhosis - elevated bili, jaundice, mild elevation AST. CT 10-24-16 --> Cirrhosis with moderate ascites. Pleural effusion, mainly on the left. Lobular density in the region of the left adrenal gland is felt to mainly relate to varices, however an adrenal mass is not excluded. Further evaluation with contrasted CT versus MRI would be suggested. Fluid containing right inguinal hernia. - ascites - periotoneal WBC 608, neutrophil 42. poss SBP. cytology pending. No growth 48h. on zosyn, azithromycin, had 1 x vanc. - sepsis - per primary, SBP vs HCAP - [place] - per primary PLAN - continue lactulose, xifaxan - continue abx - await peritoneal cytology - repeat paracentesis in few days with cell count, albumin level - monitor labs - supportive care This pt seen by myself and DR Zhou and this note is written on his behalf Briana Hanks Oct 26, 2016 15:16
[2016-10-26] MEDS: AZITHROMYCIN INJ 500 MG in SODIUM CHLOR 0.9% 250 ML INJ 250 ML IV SCH (15:42)
--- NOTE | 2016-10-26 15:55 | HHI.NSPN ---
(Gisell Montague) Note Status Status: Progress Note (Gisell Montague) Interval History Interval History This is a 75-year-old gentleman transferred from [facility] where he was seen in the emergency room following the fall at home. The patient allegedly slipped in the shower fell striking the back of his head and presented to the emergency room with complaints of neck pain anterior chest pain. His evaluation showed small amount of traumatic subarachnoid hemorrhage in the right posterior parietal region on CT scan of the brain as well as cervical spine fractures. The patient was transferred to [place] for further evaluation and care. C6/25: Patient is awake and alert. Complaining of decreasing neck and sternal pain. No significant headache. 10/24. He is very lethargic, confused, stuporose 10/25. He is better today. S/p paracenthesis, amonia lower 10/26: mental status better, complains of neck and low back pain. (Gisell Montague) Labs, Micro, & Vital Signs Results Date Time Temp Pulse Resp B/P Pulse Ox O2 Delivery O2 Flow Rate FiO2 10/26/16 12:00 98 10/26/16 12:00 98.8 98 15 136/76 95 10/26/16 10:00 117 10/26/16 08:14 96 Nasal Cannula 2.00 10/26/16 08:00 98.0 102 16 162/95 95 10/26/16 08:00 87 10/26/16 07:00 94 Nasal Cannula 3.00 10/26/16 04:00 97.7 98 17 167/88 95 10/26/16 00:00 97.7 114 17 159/95 92 10/25/16 20:00 97.9 116 17 153/87 96 10/25/16 19:49 96 Nasal Cannula 2.50 10/25/16 19:00 97 Nasal Cannula 2.50 10/25/16 16:00 98.2 116 24 163/91 99 10/26/16 07:00 Intake Total 1139 ml Output Total 2150 ml Balance -1011 ml Constitutional Vital Signs Date Time Temp Pulse Resp B/P Pulse Ox O2 Delivery O2 Flow Rate FiO2 10/26/16 12:00 98 10/26/16 12:00 98.8 98 15 136/76 95 10/26/16 10:00 117 10/26/16 08:14 96 Nasal Cannula 2.00 10/26/16 08:00 98.0 102 16 162/95 95 10/26/16 08:00 87 10/26/16 07:00 94 Nasal Cannula 3.00 10/26/16 04:00 97.7 98 17 167/88 95 10/26/16 00:00 97.7 114 17 159/95 92 10/25/16 20:00 97.9 116 17 153/87 96 10/25/16 19:49 96 Nasal Cannula 2.50 10/25/16 19:00 97 Nasal Cannula 2.50 10/25/16 16:00 98.2 116 24 163/91 99 10/26/16 07:00 Intake Total 1139 ml Output Total 2150 ml Balance -1011 ml (Gisell Montague) Review of Systems/Exam Exam Mr. Riley is awake, mildly confused oriented to self and place, not time. Cranial nerve examination: pupils to be equal, round, and reactive to light. Extra-ocular movements are intact with normal convergence. Facial motor function appears normal and symmetrical. Cervical spine in a [place] collar Muscle strength is 5/5 in all muscle groups of both upper and lower extremities. There is a bilateral plantar flexion response. Hoffmanns sign is negative. There is no clonus or other abnormal reflexes noted. Cerebellar examination is limited due to the patient condition, but no obvious deficits are noted. (Gisell Montague) Exam Mr. Riley is awake, confused oriented to self and place, not time. Cranial nerve examination: pupils to be equal, round, and reactive to light. Extra-ocular movements are intact with normal convergence. Facial motor function appears normal and symmetrical. Cervical spine in a [place] collar Muscle strength is 5/5 in all muscle groups of both upper and lower extremities. There is a bilateral plantar flexion response. Hoffmanns sign is negative. There is no clonus or other abnormal reflexes noted. Cerebellar examination is limited due to the patient condition (Gurjit Burch MD) Medications Current Medications Current Medications Medications (Trade) Dose Ordered Sig/Melanie Route PRN Reason Start Time Stop Time Status Last Admin Dose Admin Sodium Chloride (NS Flush) 2 ml UNSCH PRN IV FLUSH FLUSH AFTER USING IV ACCESS 10/22/16 00:00 Sodium Chloride (NS Flush) 2 ml BID IV FLUSH 10/22/16 09:00 10/26/16 07:39 Ondansetron HCl (Zofran Inj) 4 mg Q6H PRN IV NAUSEA OR VOMITING 10/22/16 00:00 10/22/16 00:39 Bisacodyl (Dulcolax Ec) 10 mg Q12H PRN PO CONSTIPATION 10/22/16 00:00 Oxycodone/ Acetaminophen (Percocet 5-325 Mg) 1 tab Q4H PRN PO PAIN SCALE 3 TO 10 10/22/16 00:00 10/26/16 01:41 Naloxone HCl (Narcan Inj) 0.4 mg UNSCH PRN IV SEE LABEL COMMENTS 10/22/16 00:00 Magnesium Hydroxide (Milk Of Magnesia Liq) 30 ml HS PO 10/22/16 21:00 10/24/16 20:19 Clonazepam (KlonoPIN) 0.5 mg DAILY PO 10/23/16 09:00 Hold 10/24/16 09:41 Insulin Human Isoph/Insulin Regular (NovoLIN 70/30 INJ) 6 units TIDAC SQ 10/22/16 17:00 Hold 10/24/16 10:30 Pantoprazole Sodium (Protonix) 40 mg DAILY PO 10/22/16 13:00 10/26/16 07:40 Potassium Chloride (KCl) 10 meq BID PO 10/22/16 13:00 10/26/16 07:43 Lisinopril (Prinivil) 40 mg DAILY PO 10/22/16 13:15 10/26/16 07:40 Dextrose (D50w (Vial) Inj) 25 ml UNSCH PRN IV PUSH HYPOGLYCEMIA - SEE COMMENTS 10/22/16 23:00 Glucagon (Glucagon Inj) 1 mg UNSCH PRN OTHER HYPOGLYCEMIA-SEE COMMENTS 10/22/16 23:00 Clonidine (Catapres) 0.1 mg Q6H PRN PO bp>160/90 10/23/16 09:30 10/26/16 03:10 Lactulose (Lactulose Liq) 30 ml QID PO 10/24/16 03:45 10/26/16 12:39 Rifaximin (Xifaxan) 550 mg BID PO 10/24/16 13:00 10/26/16 07:40 Nitroglycerin 0.4 mg 0.4 mg Q5M PRN SL X 3 doses for chest pain 10/24/16 11:45 Sodium Chloride 1,000 ml @ 84 mls/hr [id number] PRN IV if po < 50% 10/24/16 12:00 Piperacillin Sod/ Tazobactam Sod 100 ml @ 200 mls/hr Q6H IV 10/24/16 16:00 10/26/16 08:37 Azithromycin/ Sodium Chloride (Zithromax Inj/ NS 250 ml Inj) 250 ml @ 250 mls/hr Q24H IV 10/24/16 15:00 10/25/16 14:13 Haloperidol Lactate (Haldol Inj) 2 mg Q4H PRN IV agitation 10/24/16 16:15 10/25/16 22:56 Docusate Sodium (Colace Liq) 100 mg Q12HR PO 10/24/16 21:00 10/25/16 19:40 Hydralazine HCl (Apresoline Inj) 10 mg Q2H PRN IV PUSH SBP > 160 10/26/16 09:15 (Gisell Montague) Medical Decision Making MDM Remarks 75 y/o male s/p fall bilateral C7 laminar fracture Closed head injury with SAH, stable CT (Gisell Montague) Plan Plan Remarks cont nonoperative management, cont [place] collar, wear at all times nonchemical dvt prophylaxis in view of ICH, cont neuro checks cont therapy and rehab efforts (Giesll Montague) Attending Statement Neuro. Neuro checks in a serial fashion. Respiratory. pulmonary toilette, nasotracheal suction, and breathing treatments with nebulizers. PT and OT eval Nutrition. NPO Renal. monitor closely urine output, BUN and creatinine Endocrine. Monitor serial Acu checks and SSI for tight control ID monitor for signs of infection Protonix for stress ulcer prophylaxis [place] hose and SCD's for DVT prophylaxis (Gurjit Burch MD) Gisell Montague Oct 26, 2016 15:55 Gurjit Burch MD Oct 31, 2016 08:02
[2016-10-26] MEDS: MAGNESIUM HYDROXIDE SUSP 30 ML CUP PO SCH (21:00)
[2016-10-26] MEDS: SODIUM CHLORIDE 0.9% FLUSH 10 ML FLUSH IV FLUSH PRN (23:07)
[2016-10-27] VITALS (11 sets, daily range): BP systolic 103–143; BP diastolic 67–89; PULSE 80–101; RESP 18–20; TEMP 96.3–97.9; O2SAT 92–95
[2016-10-27] MEDS: oxyCODONE/ACETAMINOPHEN 5 MG/325 MG TAB PO PRN ×4 (03:24→18:18)
[2016-10-27] MEDS: PIPERACIL-TAZO 4.5 GM PREMIX 100 ML IV SCH ×3 (03:26→17:33)
[2016-10-27] MEDS: SODIUM CHLORIDE 0.9% FLUSH 10 ML FLUSH IV FLUSH PRN (03:27)
[2016-10-27] MEDS: INSULIN ASPART SUPPLEMENTAL SCALE SQ SCH ×4 (06:05→21:24)
[2016-10-27] MEDS: RESP: ALBUTEROL 2.5 MG/IPRATROPIUM 0.5 MG NEB (SCH) INH ×4 (08:28→22:05)
[2016-10-27] MEDS: POTASSIUM CHLORIDE 10 MEQ CONTROLLED RELEASE TAB PO SCH ×2 (09:13→21:22)
[2016-10-27] MEDS: LACTULOSE SYRUP 20 GM/30 ML CUP PO SCH ×4 (09:13→21:22)
[2016-10-27] MEDS: DOCUSATE SODIUM 100 MG/10 ML UDC PO SCH ×2 (09:13→21:22)
[2016-10-27] MEDS: PANTOPRAZOLE SOD 40 MG DELAYED RELEASE TAB PO SCH (09:13)
[2016-10-27] MEDS: RIFAXIMIN 550 MG TAB PO SCH ×2 (09:14→21:22)
[2016-10-27] MEDS: LISINOPRIL 20 MG TAB PO SCH (09:14)
[2016-10-27] MEDS: SODIUM CHLORIDE 0.9% FLUSH 10 ML FLUSH IV FLUSH SCH ×2 (09:16→21:21)
--- NOTE | 2016-10-27 14:38 | HHI.PR ---
Subjective Remarks Follow-up encephalopathy, pneumonia and possible SBP. Patient known to me from previous. He was transferred to ICU because of worsening mental encephalopathy secondary to hepatic encephalopathy, pneumonia and possible SBP. He was managed by critical care medicine started on IV Zithromax and Zosyn. Consultation has been requested by critical care medicine for transfer care and medical management. At this time, patient is awake and oriented 3. Complains of cough but denies shortness of breath and abdominal pain. Discussed with RN and case management, patient has been accepted by CIR if GI does not plan to repeat paracentesis. Discussed with GI, start diuresis Objective Vitals Vital Signs Date Time Temp Pulse Resp B/P Pulse Ox O2 Delivery O2 Flow Rate FiO2 10/27/16 12:26 96.9 88 18 143/85 95 10/27/16 12:13 92 21 10/27/16 08:35 97.9 90 18 133/88 95 10/27/16 08:29 93 21 10/27/16 04:00 97.8 89 20 139/78 93 10/27/16 00:00 97.8 98 18 138/89 94 10/26/16 22:30 2.00 10/26/16 20:00 97.4 100 18 133/77 93 10/26/16 18:45 100 10/26/16 16:38 93 Nasal Cannula 2.00 10/26/16 16:00 96.6 100 15 143/68 96 I/O 10/26/16 10/26/16 10/26/16 10/27/16 10/27/16 10/27/16 07:00 15:00 23:00 07:00 15:00 23:00 Intake Total 420 ml 315 ml Output Total 600 ml 475 ml Balance -180 ml -160 ml Intake Oral 75 ml IV Total 420 ml 240 ml Output Urine Total 550 ml 250 ml Drainage Total 50 ml 225 ml # Bowel Movements 1 Result Diagram: 10/25/16 0430 10/26/16 0347 Imaging Last Impressions Abdomen X-Ray 10/26/16 0000 Signed Impressions: Service Date/Time: Wednesday, October 26, 2016 08:05 - CONCLUSION: 1. Nasogastric catheter tip projects in the region of the GE junction and does not appear in to be in the stomach. 2. Nonobstructive bowel gas pattern. Misha Sutton MD Chest X-Ray 10/24/16 0000 Signed Impressions: Service Date/Time: Monday, October 24, 2016 11:57 - CONCLUSION: Increasing consolidation changes left base. Parminder Pierson MD FACR Abdomen/Pelvis CT 10/24/16 0000 Signed Impressions: Service Date/Time: Monday, October 24, 2016 14:46 - CONCLUSION: Cirrhosis with moderate ascites. Pleural effusion, mainly on the left. Lobular density in the region of the left adrenal gland is felt to mainly relate to varices, however an adrenal mass is not excluded. Further evaluation with contrasted CT versus MRI would be suggested. Fluid containing right inguinal hernia. Martín Mcneil MD Head CT 10/23/16 1250 Signed Impressions: Service Date/Time: Sunday, October 23, 2016 13:28 - CONCLUSION: 1. No acute abnormality is seen. The previously seen hemorrhage in the right parietal region is no longer seen. 2. Atrophy. 3. Chronic right maxillary sinus disease. Martín Keenan MD Renal Ultrasound 10/23/16 0000 Signed Impressions: Service Date/Time: Sunday, October 23, 2016 17:06 - CONCLUSION: 1. Poor visualization of the kidneys as described above. 2. No hydronephrosis is noted. 3. Ascites. Venu Prasad MD Thoracic Spine CT 10/22/16 0000 Signed Impressions: Service Date/Time: Saturday, October 22, 2016 10:37 - CONCLUSION: 1. There appear to be nondisplaced fractures involving the posterior lamina bilaterally at C7. This is suspicious for an unstable injury. 2. Subacute to chronic compression fracture along the superior endplate of T1 3. Primary degenerative changes with disc degeneration and disc space narrowing involving the mid to lower thoracic spine 4. Old compression fracture along the superior endplate of L1 Aaron Ambriz MD Objective Remarks GENERAL: Well-developed, well-nourished in no distress SKIN: Warm and dry. HEAD: Normocephalic and atraumatic. EYES: No injection, drainage, or hyphema noted. ENT: No nasal drainage noted. NECK: Supple and the trachea is midline. In cervical collar immobilization. No obstruction to airway. CARDIOVASCULAR: Regular rate and rhythm. No murmurs. No JVD. RESPIRATORY: Breath sounds are equal bilaterally with no accessory muscle use, wheezing, rhonchi, or crackles. Comfortable pattern. GASTROINTESTINAL: Distended abdomen with multiple surgical scars. BS present. No peritoneal irritation. Drainage bag left lower quadrant MUSCULOSKELETAL: Bilateral lower extremity edema. Well perfused. NEUROLOGICAL: Alert and oriented 3. Nonfocal. Moves all extremities equally. Procedures none A/P Problem List: (1) Subarachnoid hemorrhage ICD Code: I60.9 Status: Acute (2) Multiple fractures of cervical spine, closed ICD Code: S12.9XXA Status: Acute (3) Mult fractures of thoracic spine, closed ICD Code: S22.009A Status: Acute Assessment and Plan NEURO: Acute hepatic encephalopathy. Much improved Closed head injury with right parietal contusion, SAH Bilaminar C7 fracture and possible mild anterior T1 compression fracture - Current encephalopathy appears to be hepatic encephalopathy, ammonia level is 102 - Continue Xifaxan and lactulose - As needed Haldol for agitation. Avoid benzodiazepines, and opiates - Trend ammonia level, falling with rx. RESP: Respiratory insufficiency Healthcare associated pneumonia - Nasal cannula oxygen - DuoNeb every 6 hours when necessary, aggressive pulmonary toilet - Continue Zosyn and switch to po azithromycin pending cultures negative to date. CV: History of hypertension - Not on IV fluids - Monitor blood pressure and heart rate GI: Ascites Liver cirrhosis Rule out SBP Hyperammonemia - Status post paracentesis with 350 mL of free-flowing straw-colored fluid removed - Send for further studies. Zosyn should cover for probable SBP - Continue Xifaxan and lactulose - Start diuresis with IV Lasix and monitor renal function and electrolytes hopefully this will prevent repeat paracentesis : Acute kidney injury -Monitor renal function closely. Condom catheter. ID: Sepsis HCAP Possible SBP - Continue Zosyn and azithromycin. 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 Continue to hold long-acting insulin PROPH: - Bilateral lower extremity SCDs. Avoid chemical prophylaxis due to thrombocytopenia and closed head injury. Protonix LINES: - Utilize peripheral IVs, central line if needed Discharge Planning Discharge to [place] in 1-2 days Problem Qualifiers (1) Multiple fractures of cervical spine, closed: Qualified Code: S12.9XXA - Multiple fractures of cervical spine, closed, initial encounter (2) Mult fractures of thoracic spine, closed: Qualified Code: S22.009A - Mult fractures of thoracic spine, closed, initial encounter Juan Roman MD Oct 27, 2016 14:38
[2016-10-27] MEDS ORDERED: FURO1TAB62 PO (14:54)
[2016-10-27] MEDS ORDERED: NOVOLOGSS SQ (14:54)
[2016-10-27] MEDS ORDERED: AUGM875T3 PO (14:54)
[2016-10-27] MEDS ORDERED: ALBU0.08 NEB (14:54)
[2016-10-27] MEDS ORDERED: XIFA550T4 PO (14:54)
[2016-10-27] MEDS ORDERED: SPIR25 PO (14:54)
--- NOTE | 2016-10-27 14:54 | HHI.DCPOC ---
Discharge Care Plan Diagnosis: (1) Multiple fractures of cervical spine, closed (2) Subarachnoid hemorrhage (3) Mult fractures of thoracic spine, closed Your Health Problems Are: Difficulty with ADL Exercise Tolerance Goals to Promote Your Health * To prevent worsening of your condition and complications * To maintain your health at the optimal level Directions to Meet Your Goals Take your medications as prescribed Follow your dietary instruction Follow activity as directed Keep your appointments as scheduled Take your immunizations and boosters as scheduled If your symptoms worsen call your PCP, if no PCP go to Urgent Care Center or Emergency Room Smoking is Dangerous to Your Health. Avoid second hand smoke Call the 24-hour hour crisis hotline for domestic abuse at Juan Roman MD Oct 27, 2016 14:54
--- NOTE | 2016-10-27 16:43 | HHI.GIFU ---
Subjective Remarks Pt resting in bed in no apparent distress. When asked how he feels he says "I don't know. " No complaints. Objective Vitals I&O Vital Signs Date Time Temp Pulse Resp B/P Pulse Ox O2 Delivery O2 Flow Rate FiO2 10/27/16 16:12 92 Room Air 10/27/16 15:43 96.9 88 20 117/67 93 10/27/16 12:26 96.9 88 18 143/85 95 10/27/16 12:13 92 21 10/27/16 08:35 97.9 90 18 133/88 95 10/27/16 08:29 93 21 10/27/16 04:00 97.8 89 20 139/78 93 10/27/16 00:00 97.8 98 18 138/89 94 10/26/16 22:30 2.00 10/26/16 20:00 97.4 100 18 133/77 93 10/26/16 18:45 100 I/O 10/26/16 10/26/16 10/26/16 10/27/16 10/27/16 10/27/16 07:00 15:00 23:00 07:00 15:00 23:00 Intake Total 420 ml 315 ml 660 ml Output Total 600 ml 475 ml Balance -180 ml -160 ml 660 ml Intake Oral 75 ml 660 ml IV Total 420 ml 240 ml Output Urine Total 550 ml 250 ml Drainage Total 50 ml 225 ml # Voids 2 # Bowel Movements 1 Laboratory Date/Time Procedure Status Source Growth 10/25/16 04:30 Aerobic Blood Culture - Preliminary Resulted Blood Peripheral NO GROWTH IN 2 DAYS 10/25/16 04:30 Anaerobic Blood Culture - Preliminary Resulted Blood Peripheral NO GROWTH IN 2 DAYS 10/24/16 16:00 Gram Stain - Final Complete Fluid Peritoneal Fluid 10/24/16 16:00 Body Fluid Culture - Final Complete Fluid Peritoneal Fluid NO GROWTH IN 72 HRS.--AEROBICALLY OR ... 10/23/16 11:05 Urine Culture - Final Complete Urine Clean Catch <10,000 CFU/ML GRAM POSITIVE DECLAN Imaging Last Impressions Abdomen X-Ray 10/26/16 0000 Signed Impressions: Service Date/Time: Monday, October 26, 2016 08:05 - CONCLUSION: 1. Nasogastric catheter tip projects in the region of the GE junction and does not appear in to be in the stomach. 2. Nonobstructive bowel gas pattern. Misha Sutton MD Chest X-Ray 10/24/16 0000 Signed Impressions: Service Date/Time: Monday, October 24, 2016 11:57 - CONCLUSION: Increasing consolidation changes left base. Parminder Pierson MD FACR Abdomen/Pelvis CT 10/24/16 0000 Signed Impressions: Service Date/Time: Monday, October 24, 2016 14:46 - CONCLUSION: Cirrhosis with moderate ascites. Pleural effusion, mainly on the left. Lobular density in the region of the left adrenal gland is felt to mainly relate to varices, however an adrenal mass is not excluded. Further evaluation with contrasted CT versus MRI would be suggested. Fluid containing right inguinal hernia. Martín Mcneil MD Head CT 10/23/16 1250 Signed Impressions: Service Date/Time: Sunday, October 23, 2016 13:28 - CONCLUSION: 1. No acute abnormality is seen. The previously seen hemorrhage in the right parietal region is no longer seen. 2. Atrophy. 3. Chronic right maxillary sinus disease. Martín Keenan MD Renal Ultrasound 10/23/16 0000 Signed Impressions: Service Date/Time: Sunday, October 23, 2016 17:06 - CONCLUSION: 1. Poor visualization of the kidneys as described above. 2. No hydronephrosis is noted. 3. Ascites. Venu Prasad MD Thoracic Spine CT 10/22/16 0000 Signed Impressions: Service Date/Time: Saturday, October 22, 2016 10:37 - CONCLUSION: 1. There appear to be nondisplaced fractures involving the posterior lamina bilaterally at C7. This is suspicious for an unstable injury. 2. Subacute to chronic compression fracture along the superior endplate of T1 3. Primary degenerative changes with disc degeneration and disc space narrowing involving the mid to lower thoracic spine 4. Old compression fracture along the superior endplate of L1 Aaron Ambriz MD Physical Exam HEENT: PERRL; normocephalic; atraumatic; + jaundice. NGT CHEST: CTA CARDIAC: RRR ABDOMEN: Soft,distended, nontender; no hepatosplenomegaly; bowel sounds are present in all four quadrants. abdominal fluid draining LLQ, reddish clear fluid EXTREMITIES: No clubbing, cyanosis, or edema. SKIN: Normal; no rash; mild jaundice. JAVA [employer]AD: lethargic Assessment and Plan Plan ASSESSMENT - hepatic encephalopathy - NH was 102, decreasing. lactulose, xifaxan - cirrhosis - elevated bili, jaundice, mild elevation AST. CT 10-24-16 --> Cirrhosis with moderate ascites. Pleural effusion, mainly on the left. Lobular density in the region of the left adrenal gland is felt to mainly relate to varices, however an adrenal mass is not excluded. Further evaluation with contrasted CT versus MRI would be suggested. Fluid containing right inguinal hernia. - ascites - periotoneal WBC 608, neutrophil 42. poss SBP. cytology pending. No growth 48h. on zosyn, azithromycin, had 1 x vanc. - sepsis - per primary, SBP vs HCAP - [place] - per primary PLAN - continue lactulose, xifaxan - continue abx - await peritoneal cytology - repeat paracentesis in few days with cell count, albumin level - monitor labs - supportive care This pt seen by myself and DR Zhou and this note is written on his behalf Briana Hanks Oct 27, 2016 16:43
[2016-10-27] MEDS: AZITHROMYCIN 250 MG TAB PO SCH (17:31)
[2016-10-27] MEDS: FUROSEMIDE 20 MG/2 ML VIAL IV PUSH SCH (17:34)
[2016-10-27] MEDS: MAGNESIUM HYDROXIDE SUSP 30 ML CUP PO SCH (21:00)
[2016-10-28] VITALS (9 sets, daily range): BP systolic 109–134; BP diastolic 56–85; PULSE 86–111; RESP 20; TEMP 95.5–96.6; O2SAT 91–98
[2016-10-28] MEDS: PIPERACIL-TAZO 4.5 GM PREMIX 100 ML IV SCH ×3 (00:02→08:49)
[2016-10-28] MEDS: oxyCODONE/ACETAMINOPHEN 5 MG/325 MG TAB PO PRN ×4 (02:53→18:00)
[2016-10-28] MEDS: INSULIN ASPART SUPPLEMENTAL SCALE SQ SCH ×3 (06:38→16:00)
[2016-10-28] MEDS: LACTULOSE SYRUP 20 GM/30 ML CUP PO SCH ×3 (08:30→16:46)
[2016-10-28] MEDS: FUROSEMIDE 20 MG/2 ML VIAL IV PUSH SCH ×2 (08:30→16:46)
[2016-10-28] MEDS: SODIUM CHLORIDE 0.9% FLUSH 10 ML FLUSH IV FLUSH SCH (08:30)
[2016-10-28] MEDS: DOCUSATE SODIUM 100 MG/10 ML UDC PO SCH (08:30)
[2016-10-28] MEDS: POTASSIUM CHLORIDE 10 MEQ CONTROLLED RELEASE TAB PO SCH (08:30)
[2016-10-28] MEDS: RIFAXIMIN 550 MG TAB PO SCH (08:31)
[2016-10-28] MEDS: PANTOPRAZOLE SOD 40 MG DELAYED RELEASE TAB PO SCH (08:31)
[2016-10-28] MEDS: AZITHROMYCIN 250 MG TAB PO SCH (08:31)
[2016-10-28] MEDS: LISINOPRIL 20 MG TAB PO SCH (08:31)
[2016-10-28] MEDS: RESP: ALBUTEROL 2.5 MG/IPRATROPIUM 0.5 MG NEB (SCH) INH ×3 (08:54→16:05)
--- NOTE | 2016-10-28 09:15 | HHI.PR ---
Subjective Remarks Follow-up encephalopathy and ascites. Patient has no complaints he is alert and noted 3 denies cough and abdominal pain. Discussed with RN Objective Vitals Vital Signs Date Time Temp Pulse Resp B/P Pulse Ox O2 Delivery O2 Flow Rate FiO2 10/28/16 08:56 93 10/28/16 08:05 95.9 86 20 134/85 96 10/28/16 07:15 91 10/28/16 04:00 96.6 88 20 131/56 93 10/28/16 00:00 96.5 95 20 121/78 94 10/27/16 22:07 93 21 10/27/16 21:53 101 10/27/16 21:49 Room Air 10/27/16 20:00 96.3 80 20 103/74 94 10/27/16 19:16 98 10/27/16 16:12 92 Room Air 10/27/16 15:43 96.9 88 20 117/67 93 10/27/16 12:26 96.9 88 18 143/85 95 10/27/16 12:13 92 21 I/O 10/27/16 10/27/16 10/27/16 10/28/16 10/28/16 10/28/16 07:00 15:00 23:00 07:00 15:00 23:00 Intake Total 900 ml 400 ml Output Total 700 ml 700 ml Balance 200 ml -300 ml Intake Oral 900 ml 200 ml IV Total 200 ml Output Urine Total 400 ml 500 ml Drainage Total 300 ml 200 ml # Voids 2 # Bowel Movements 0 1 Result Diagram: 10/25/16 0430 10/26/16 0347 Objective Remarks GENERAL: Well-developed, well-nourished in no distress SKIN: Warm and dry. HEAD: Normocephalic and atraumatic. EYES: No injection, drainage, or hyphema noted. ENT: No nasal drainage noted. NECK: Supple and the trachea is midline. In cervical collar immobilization. No obstruction to airway. CARDIOVASCULAR: Regular rate and rhythm. No murmurs. No JVD. RESPIRATORY: Breath sounds are equal bilaterally with no accessory muscle use, wheezing, rhonchi, or crackles. Comfortable pattern. GASTROINTESTINAL: Distended abdomen with multiple surgical scars. BS present. No peritoneal irritation. Drainage bag left lower quadrant MUSCULOSKELETAL: Bilateral lower extremity edema. Well perfused. NEUROLOGICAL: Alert and oriented 3. Nonfocal. Moves all extremities equally. Procedures none A/P Problem List: (1) Subarachnoid hemorrhage ICD Code: I60.9 Status: Acute (2) Multiple fractures of cervical spine, closed ICD Code: S12.9XXA Status: Acute (3) Mult fractures of thoracic spine, closed ICD Code: S22.009A Status: Acute Assessment and Plan NEURO: Acute hepatic encephalopathy. Much improved Closed head injury with right parietal contusion, SAH Bilaminar C7 fracture and possible mild anterior T1 compression fracture - Current encephalopathy appears to be hepatic encephalopathy, ammonia level is 102 - Continue Xifaxan and lactulose - As needed Haldol for agitation. Avoid benzodiazepines, and opiates - Trend ammonia level, falling with rx. RESP: Respiratory insufficiency Healthcare associated pneumonia - Nasal cannula oxygen - DuoNeb every 6 hours when necessary, aggressive pulmonary toilet - Continue Zosyn and switch to po azithromycin pending cultures negative to date. CV: History of hypertension - Not on IV fluids - Monitor blood pressure and heart rate GI: Ascites Liver cirrhosis Rule out SBP Hyperammonemia - Status post paracentesis with 350 mL of free-flowing straw-colored fluid removed - Send for further studies. Zosyn should cover for probable SBP - Continue Xifaxan and lactulose - Continue diuresis with IV Lasix and monitor renal function and electrolytes hopefully this will prevent repeat paracentesis and decrease drainage : Acute kidney injury -Monitor renal function closely. Condom catheter. ID: Sepsis HCAP Possible SBP - Continue Zosyn and azithromycin. Give single dose of vancomycin - Follow-up blood urine and sputum and ascitic fluid cultures negative to date. 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 Continue to hold long-acting insulin PROPH: - Bilateral lower extremity SCDs. Avoid chemical prophylaxis due to thrombocytopenia and closed head injury. Protonix LINES: - Utilize peripheral IVs, central line if needed Discharge Planning Discharge to [place] when cleared by GI Problem Qualifiers (1) Multiple fractures of cervical spine, closed: Qualified Code: S12.9XXA - Multiple fractures of cervical spine, closed, initial encounter (2) Mult fractures of thoracic spine, closed: Qualified Code: S22.009A - Mult fractures of thoracic spine, closed, initial encounter Juan Roman MD Oct 28, 2016 09:15
[2016-10-28 09:55] LABS: BICARBONATE 28.2 MEQ/L (21.0-32.0); MAGNESIUM 1.8 MG/DL (1.5-2.5); POTASSIUM 3.8 MEQ/L (3.5-5.1)
--- NOTE | 2016-10-28 10:52 | HHI.NSPN ---
(Gisell Montague) Note Status Status: Progress Note (Gisell Montague) Interval History Interval History This is a 75-year-old gentleman transferred from [facility] where he was seen in the emergency room following the fall at home. The patient allegedly slipped in the shower fell striking the back of his head and presented to the emergency room with complaints of neck pain anterior chest pain. His evaluation showed small amount of traumatic subarachnoid hemorrhage in the right posterior parietal region on CT scan of the brain as well as cervical spine fractures. The patient was transferred to [place] for further evaluation and care. /25: Patient is awake and alert. Complaining of decreasing neck and sternal pain. No significant headache. 10/24. He is very lethargic, confused, stuporose 10/25. He is better today. S/p paracenthesis, amonia lower 10/26: mental status better, complains of neck and low back pain. 10/28: [place] collar in place. stable cervical pain, requesting discharge plan to rehab facility. in room. (Gisell Montague) Labs, Micro, & Vital Signs Results Date Time Temp Pulse Resp B/P Pulse Ox O2 Delivery O2 Flow Rate FiO2 10/28/16 09:40 18 10/28/16 08:56 93 10/28/16 08:05 95.9 86 20 134/85 96 10/28/16 07:15 91 10/28/16 04:00 96.6 88 20 131/56 93 10/28/16 00:00 96.5 95 20 121/78 94 10/27/16 22:07 93 21 10/27/16 21:53 101 10/27/16 21:49 Room Air 10/27/16 20:00 96.3 80 20 103/74 94 10/27/16 19:16 98 10/27/16 16:12 92 Room Air 10/27/16 15:43 96.9 88 20 117/67 93 10/27/16 12:26 96.9 88 18 143/85 95 10/27/16 12:13 92 21 10/28/16 07:00 Intake Total 1300 ml Output Total 1400 ml Balance -100 ml Constitutional Vital Signs Date Time Temp Pulse Resp B/P Pulse Ox O2 Delivery O2 Flow Rate FiO2 10/28/16 09:40 18 10/28/16 08:56 93 10/28/16 08:05 95.9 86 20 134/85 96 10/28/16 07:15 91 10/28/16 04:00 96.6 88 20 131/56 93 10/28/16 00:00 96.5 95 20 121/78 94 10/27/16 22:07 93 21 10/27/16 21:53 101 10/27/16 21:49 Room Air 10/27/16 20:00 96.3 80 20 103/74 94 10/27/16 19:16 98 10/27/16 16:12 92 Room Air 10/27/16 15:43 96.9 88 20 117/67 93 10/27/16 12:26 96.9 88 18 143/85 95 10/27/16 12:13 92 21 10/28/16 07:00 Intake Total 1300 ml Output Total 1400 ml Balance -100 ml (Gisell Montague) Review of Systems/Exam Exam Mr. Riley is awake, oriented to self and place. Conversing well, follows commands. Cranial nerve examination: pupils equal, round, and reactive to light. Extra- ocular movements are intact with normal convergence. Facial motor function appears normal and symmetrical. Cervical spine in a [place]ath collar Muscle strength is 5/5 in all muscle groups of both upper and lower extremities. Sensory: reports intact to light touch x 4 There is a bilateral plantar flexion response. Hoffmanns sign is negative. There is no ankle clonus Cerebellar examination is limited due to the patient condition, but no obvious deficits are noted. (Gisell Montague) Exam Mr. Riley is awake, oriented to self and place. Conversing well, follows commands. Cranial nerve examination: pupils equal, round, and reactive to light. Extra- ocular movements are intact with normal convergence. Facial motor function appears normal and symmetrical. Cervical spine in a [place] collar Muscle strength is 5/5 in all muscle groups of both upper and lower extremities. Sensory: reports intact to light touch x 4 There is a bilateral plantar flexion response. Hoffmanns sign is negative. There is no ankle clonus Cerebellar examination is limited due to the patient condition, but no obvious deficits are noted. (Gurjit Burch MD) Medications Current Medications Current Medications Medications (Trade) Dose Ordered Sig/Melanie Route PRN Reason Start Time Stop Time Status Last Admin Dose Admin Sodium Chloride (NS Flush) 2 ml UNSCH PRN IV FLUSH FLUSH AFTER USING IV ACCESS 10/22/16 00:00 10/27/16 03:27 Sodium Chloride (NS Flush) 2 ml BID IV FLUSH 10/22/16 09:00 10/28/16 08:30 Ondansetron HCl (Zofran Inj) 4 mg Q6H PRN IV NAUSEA OR VOMITING 10/22/16 00:00 10/22/16 00:39 Bisacodyl (Dulcolax Ec) 10 mg Q12H PRN PO CONSTIPATION 10/22/16 00:00 Oxycodone/ Acetaminophen (Percocet 5-325 Mg) 1 tab Q4H PRN PO PAIN SCALE 3 TO 10 10/22/16 00:00 10/28/16 08:30 Naloxone HCl (Narcan Inj) 0.4 mg UNSCH PRN IV SEE LABEL COMMENTS 10/22/16 00:00 Magnesium Hydroxide (Milk Of Magntucker Liq) 30 ml HS PO 10/22/16 21:00 10/24/16 20:19 Clonazepam (KlonoPIN) 0.5 mg DAILY PO 10/23/16 09:00 Hold 10/24/16 09:41 Insulin Human Isoph/Insulin Regular (NovoLIN 70/30 INJ) 6 units TIDAC SQ 10/22/16 17:00 Hold 10/24/16 10:30 Pantoprazole Sodium (Protonix) 40 mg DAILY PO 10/22/16 13:00 10/28/16 08:31 Potassium Chloride (KCl) 10 meq BID PO 10/22/16 13:00 10/28/16 08:30 Lisinopril (Prinivil) 40 mg DAILY PO 10/22/16 13:15 10/28/16 08:31 Dextrose (D50w (Vial) Inj) 25 ml UNSCH PRN IV PUSH HYPOGLYCEMIA - SEE COMMENTS 10/22/16 23:00 Glucagon (Glucagon Inj) 1 mg UNSCH PRN OTHER HYPOGLYCEMIA-SEE COMMENTS 10/22/16 23:00 Clonidine (Catapres) 0.1 mg Q6H PRN PO bp>160/90 10/23/16 09:30 10/26/16 03:10 Lactulose (Lactulose Liq) 30 ml QID PO 10/24/16 03:45 10/28/16 08:30 Rifaximin (Xifaxan) 550 mg BID PO 10/24/16 13:00 10/28/16 08:31 Nitroglycerin 0.4 mg 0.4 mg Q5M PRN SL X 3 doses for chest pain 10/24/16 11:45 Sodium Chloride 1,000 ml @ 84 mls/hr [id number] PRN IV if po < 50% 10/24/16 12:00 Piperacillin Sod/ Tazobactam Sod (Zosyn 4.5 Gm Premix) 100 ml @ 200 mls/hr Q6H IV 10/24/16 16:00 10/28/16 08:49 Haloperidol Lactate (Haldol Inj) 2 mg Q4H PRN IV agitation 10/24/16 16:15 10/25/16 22:56 Docusate Sodium (Colace Liq) 100 mg Q12HR PO 10/24/16 21:00 10/28/16 08:30 Hydralazine HCl (Apresoline Inj) 10 mg Q2H PRN IV PUSH SBP > 160 10/26/16 09:15 Azithromycin (Zithromax) 250 mg DAILY PO 10/27/16 15:00 10/28/16 14:59 10/28/16 08:31 Furosemide (Lasix Inj) 20 mg BID@09,18 IV PUSH 10/27/16 18:00 10/28/16 08:30 (Gisell Montague) Medical Decision Making MDM Remarks 75 y/o male s/p fall bilateral C7 laminar fracture Closed head injury with SAH, stable CT Neuro stable (Gisell Montague) Plan Plan Remarks cont nonoperative management, cont [place] collar, wear at all times activity restrictions discussed cont neuro checks cont therapy and rehab efforts, dw patient and in room, clear to discharge to rehab from N[facility] standpoint, will sign off, call prn (Gisell Montague) Attending Statement Neuro. Neuro checks in a serial fashion. Respiratory. pulmonary toilette, nasotracheal suction, and breathing treatments with nebulizers. PT and OT eval Nutrition. NPO Renal. monitor closely urine output, BUN and creatinine Endocrine. Monitor serial Acu checks and SSI for tight control ID monitor for signs of infection Protonix for stress ulcer prophylaxis Alistair hose and SCD's for DVT prophylaxis The exam, history, and the medical decision-making described in the above note were completed with the assistance of the mid-level provider. I reviewed and agree with the findings presented. I attest that I had a [id number] encounter with the patient on the same day, and personally performed and documented my assessment and findings in the medical record. (Gurjit Burch MD) Gisell Montague Oct 28, 2016 10:52 Gurjit Burch MD Oct 31, 2016 08:19
[2016-10-28] MEDS ORDERED: MORPHINE SULFATE 4 MG/ML INJ IV PUSH ONE (11:00)
--- NOTE | 2016-10-28 14:57 | HHI.GIFU ---
Subjective Remarks Pt resting in bed, no abd pain, n/v. Objective Vitals I&O Vital Signs Date Time Temp Pulse Resp B/P Pulse Ox O2 Delivery O2 Flow Rate FiO2 10/28/16 12:27 96.1 106 20 109/71 93 10/28/16 12:25 98 10/28/16 09:40 18 10/28/16 08:56 93 10/28/16 08:05 95.9 86 20 134/85 96 10/28/16 07:15 91 10/28/16 04:00 96.6 88 20 131/56 93 10/28/16 00:00 96.5 95 20 121/78 94 10/27/16 22:07 93 21 10/27/16 21:53 101 10/27/16 21:49 Room Air 10/27/16 20:00 96.3 80 20 103/74 94 10/27/16 19:16 98 10/27/16 16:12 92 Room Air 10/27/16 15:43 96.9 88 20 117/67 93 I/O 10/27/16 10/27/16 10/27/16 10/28/16 10/28/16 10/28/16 07:00 15:00 23:00 07:00 15:00 23:00 Intake Total 900 ml 400 ml Output Total 700 ml 700 ml Balance 200 ml -300 ml Intake Oral 900 ml 200 ml IV Total 200 ml Output Urine Total 400 ml 500 ml Drainage Total 300 ml 200 ml # Voids 2 # Bowel Movements 0 1 Laboratory Laboratory Tests Test 10/28/16 08:19 Sodium Level 139 Potassium Level 3.8 Chloride Level 104 Carbon Dioxide Level 28.2 Anion Gap 7 Blood Urea Nitrogen 22 Creatinine 0.81 Estimat Glomerular Filtration 93 Rate Random Glucose 138 Calcium Level 8.3 Magnesium Level 1.8 Date/Time Procedure Status Source Growth 10/25/16 04:30 Aerobic Blood Culture - Preliminary Resulted Blood Peripheral NO GROWTH IN 3 DAYS 10/25/16 04:30 Anaerobic Blood Culture - Preliminary Resulted Blood Peripheral NO GROWTH IN 3 DAYS 10/24/16 16:00 Gram Stain - Final Complete Fluid Peritoneal Fluid 10/24/16 16:00 Body Fluid Culture - Final Complete Fluid Peritoneal Fluid NO GROWTH IN 72 HRS.--AEROBICALLY OR ... Imaging Last Impressions Abdomen X-Ray 10/26/16 0000 Signed Impressions: Service Date/Time: Wednesday, October 26, 2016 08:05 - CONCLUSION: 1. Nasogastric catheter tip projects in the region of the GE junction and does not appear in to be in the stomach. 2. Nonobstructive bowel gas pattern. Misha Sutton MD Chest X-Ray 10/24/16 0000 Signed Impressions: Service Date/Time: Monday, October 24, 2016 11:57 - CONCLUSION: Increasing consolidation changes left base. Parminder Pierson MD FACR Abdomen/Pelvis CT 10/24/16 0000 Signed Impressions: Service Date/Time: Monday, October 24, 2016 14:46 - CONCLUSION: Cirrhosis with moderate ascites. Pleural effusion, mainly on the left. Lobular density in the region of the left adrenal gland is felt to mainly relate to varices, however an adrenal mass is not excluded. Further evaluation with contrasted CT versus MRI would be suggested. Fluid containing right inguinal hernia. Martín Mcneil MD Head CT 10/23/16 1250 Signed Impressions: Service Date/Time: Sunday, October 23, 2016 13:28 - CONCLUSION: 1. No acute abnormality is seen. The previously seen hemorrhage in the right parietal region is no longer seen. 2. Atrophy. 3. Chronic right maxillary sinus disease. Martín Keenan MD Renal Ultrasound 10/23/16 0000 Signed Impressions: Service Date/Time: Sunday, October 23, 2016 17:06 - CONCLUSION: 1. Poor visualization of the kidneys as described above. 2. No hydronephrosis is noted. 3. Ascites. Venu Prasad MD Thoracic Spine CT 10/22/16 0000 Signed Impressions: Service Date/Time: Saturday, October 22, 2016 10:37 - CONCLUSION: 1. There appear to be nondisplaced fractures involving the posterior lamina bilaterally at C7. This is suspicious for an unstable injury. 2. Subacute to chronic compression fracture along the superior endplate of T1 3. Primary degenerative changes with disc degeneration and disc space narrowing involving the mid to lower thoracic spine 4. Old compression fracture along the superior endplate of L1 Aaron Ambriz MD Physical Exam HEENT: PERRL; normocephalic; atraumatic; + jaundice. NGT CHEST: CTA CARDIAC: RRR ABDOMEN: Soft,distended, nontender; no hepatosplenomegaly; bowel sounds are present in all four quadrants. abdominal fluid draining LLQ, reddish clear fluid EXTREMITIES: No clubbing, cyanosis, or edema. SKIN: Normal; no rash; mild jaundice. CHIEF II DISPATCHER: lethargic Assessment and Plan Plan ASSESSMENT - hepatic encephalopathy - NH was 102, decreasing. lactulose, xifaxan - cirrhosis - elevated bili, jaundice, mild elevation AST. CT 10-24-16 --> Cirrhosis with moderate ascites. Pleural effusion, mainly on the left. Lobular density in the region of the left adrenal gland is felt to mainly relate to varices, however an adrenal mass is not excluded. Further evaluation with contrasted CT versus MRI would be suggested. Fluid containing right inguinal hernia. - ascites - periotoneal WBC 608, neutrophil 42. poss SBP. cytology no malignant cells. No growth 72h. on zosyn, azithromycin, had 1 x vanc. - sepsis - per primary, SBP vs HCAP - [place] - per primary PLAN - continue lactulose, xifaxan - continue abx - monitor labs - supportive care - ok to d/c to rehab from GI standpoint This pt seen by myself and DR Zhou and this note is written on his behalf Briana Hanks Oct 28, 2016 14:57
--- NOTE | 2016-10-28 15:26 | HHI.DS ---
Discharge Summary Admission Date Oct 21, 2016 at 23:17 Discharge Date: Oct 28, 2016 Admitting Diagnosis subarachnoid hemorrhage, multiple cervical fractures (1) Subarachnoid hemorrhage ICD Code: I60.9 Diagnosis: Principal (2) Multiple fractures of cervical spine, closed ICD Code: S12.9XXA Diagnosis: Principal (3) Mult fractures of thoracic spine, closed ICD Code: S22.009A Diagnosis: Principal Procedures none Brief History - From Admission This 75 year old male was transferred from [facility] after patient was just discharged from the hospital for a different reason, then he slipped in the shower and fell injuring his head and neck. The patient was evaluated in the [facility] noted to have fracture of C4, C7 and T1 CBC/BMP: 10/25/16 0430 10/28/16 0819 Significant Findings Laboratory Tests Test 10/26/16 10/28/16 03:47 08:19 Chloride Level 110 MEQ/L (98-107) Blood Urea Nitrogen 23 MG/DL (7-18) 22 MG/DL (7-18) Random Glucose 170 MG/DL 138 MG/DL (74-106) (74-106) Calcium Level 7.8 MG/DL 8.3 MG/DL (8.5-10.1) (8.5-10.1) Total Bilirubin 4.1 MG/DL (0.2-1.0) Aspartate Amino Transf 52 U/L (15-37) (AST/SGOT) Total Protein 5.5 GM/DL (6.4-8.2) Albumin 2.0 GM/DL (3.4-5.0) Imaging Last Impressions Abdomen X-Ray 10/26/16 0000 Signed Impressions: Service Date/Time: Wednesday, October 26, 2016 08:05 - CONCLUSION: 1. Nasogastric catheter tip projects in the region of the GE junction and does not appear in to be in the stomach. 2. Nonobstructive bowel gas pattern. Misha Sutton MD Chest X-Ray 10/24/16 0000 Signed Impressions: Service Date/Time: Monday, October 24, 2016 11:57 - CONCLUSION: Increasing consolidation changes left base. Parminder Pierson MD FACR Abdomen/Pelvis CT 10/24/16 0000 Signed Impressions: Service Date/Time: Monday, October 24, 2016 14:46 - CONCLUSION: Cirrhosis with moderate ascites. Pleural effusion, mainly on the left. Lobular density in the region of the left adrenal gland is felt to mainly relate to varices, however an adrenal mass is not excluded. Further evaluation with contrasted CT versus MRI would be suggested. Fluid containing right inguinal hernia. Martín Mcneil MD Head CT 10/23/16 1250 Signed Impressions: Service Date/Time: Sunday, October 23, 2016 13:28 - CONCLUSION: 1. No acute abnormality is seen. The previously seen hemorrhage in the right parietal region is no longer seen. 2. Atrophy. 3. Chronic right maxillary sinus disease. Martín Keenan MD Renal Ultrasound 10/23/16 0000 Signed Impressions: Service Date/Time: Sunday, October 23, 2016 17:06 - CONCLUSION: 1. Poor visualization of the kidneys as described above. 2. No hydronephrosis is noted. 3. Ascites. Venu Prasad MD Thoracic Spine CT 10/22/16 0000 Signed Impressions: Service Date/Time: Saturday, October 22, 2016 10:37 - CONCLUSION: 1. There appear to be nondisplaced fractures involving the posterior lamina bilaterally at C7. This is suspicious for an unstable injury. 2. Subacute to chronic compression fracture along the superior endplate of T1 3. Primary degenerative changes with disc degeneration and disc space narrowing involving the mid to lower thoracic spine 4. Old compression fracture along the superior endplate of L1 Aaron Ambriz MD PE at Discharge GENERAL: Well-developed, well-nourished in no distress SKIN: Warm and dry. HEAD: Normocephalic and atraumatic. EYES: No injection, drainage, or hyphema noted. ENT: No nasal drainage noted. NECK: Supple and the trachea is midline. In cervical collar immobilization. No obstruction to airway. CARDIOVASCULAR: Regular rate and rhythm. No murmurs. No JVD. RESPIRATORY: Breath sounds are equal bilaterally with no accessory muscle use, wheezing, rhonchi, or crackles. Comfortable pattern. GASTROINTESTINAL: Distended abdomen with multiple surgical scars. BS present. No peritoneal irritation. Drainage bag left lower quadrant MUSCULOSKELETAL: Bilateral lower extremity edema. Well perfused. NEUROLOGICAL: Alert and oriented 3. Nonfocal. Moves all extremities equally. Hospital Course NEURO: Acute hepatic encephalopathy. Much improved Closed head injury with right parietal contusion, SAH Bilaminar C7 fracture and possible mild anterior T1 compression fracture - Current encephalopathy appears to be hepatic encephalopathy, ammonia level is 102 - Continue Xifaxan and lactulose - As needed Haldol for agitation. Avoid benzodiazepines, and opiates - Trend ammonia level, falling with rx. RESP: Respiratory insufficiency Healthcare associated pneumonia - Nasal cannula oxygen - DuoNeb every 6 hours when necessary, aggressive pulmonary toilet - Continue Zosyn and switch to po azithromycin pending cultures negative to date. CV: History of hypertension - Not on IV fluids - Monitor blood pressure and heart rate GI: Ascites Liver cirrhosis Rule out SBP Hyperammonemia - Status post paracentesis with 350 mL of free-flowing straw-colored fluid removed - Send for further studies. Zosyn should cover for probable SBP - Continue Xifaxan and lactulose - Continue diuresis with IV Lasix and monitor renal function and electrolytes hopefully this will prevent repeat paracentesis and decrease drainage : Acute kidney injury -Monitor renal function closely. Condom catheter. ID: Sepsis HCAP Possible SBP - Continue Zosyn and azithromycin. Give single dose of vancomycin - Follow-up blood urine and sputum and ascitic fluid cultures negative to date. 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 Continue to hold long-acting insulin PROPH: - Bilateral lower extremity SCDs. Avoid chemical prophylaxis due to thrombocytopenia and closed head injury. Protonix LINES: - Utilize peripheral IVs, central line if needed Pt Condition on Discharge: Stable Discharge Disposition: Rehab Inpatient Discharge Time: > 30 minutes Discharge Instructions DIET: Follow Instructions for: Diabetic Diet Activities you can perform: Regular-No Restrictions Activities to Avoid: Driving for 24 hrs, Concussion Sports, Contact Sports, Strenuous Activity Other Activity Instructions: Delfino jackson Follow up Referrals: Gastroenterology - 1 Week Neurosurgery - 2 Weeks with Gabino Henry MD PCP Follow-up - 1 Week New Medications: Amoxicillin-Clavulanate (Augmentin) 875-125 Mg Tab 1 TAB PO BID Infection #18 Ref 0 TAB Furosemide (Lasix) 20 Mg Tab 20 MG PO BID zcirrhosis #60 Ref 0 TAB Spironolactone (Aldactone) 25 Mg Tab 25 MG PO BIDPC zcirrhosis #60 Ref 0 TAB Albuterol Neb (Albuterol Neb) 2.5 Mg/3 Ml Neb 2.5 MG NEB Q2HR NEB PRN sob #[address] (Bisacodyl EC) 5 Mg Tabec 10 MG PO Q12H PRN CONSTIPATION Days 30 TAB Docusate Sodium (Dok) 100 Mg Cap 100 MG PO BID Constipation Days 15 CAP Insulin Aspart Inj (Novolog Inj) 100 Unit/Ml Inj 1 UNITS SQ ACHS SLIDING SCALE Blood Sugar Management #120 INJECTION Magnesium Hydroxide (Eq Milk of Magnesia) 1,200 Mg/15 Ml Any 30 ML PO HS Constipation Days 15 ML Oxycodone-Acetaminophen (Oxycodone-Acetaminophen) 5-325 mg Tab 1 TAB PO Q4H PRN pain Days 15 TAB Rifaximin (Xifaxan) 550 Mg Tab 550 MG PO BID encephalopathy #60 TAB Continued Medications: Benazepril (Benazepril) 40 Mg Tab 40 MG PO DAILY Blood Pressure Management #30 Ref 0 TAB Lactulose (Lactulose) 10 Gm/15 Ml Solution 30 ML PO QID titrate to 3 loose stools per day encephalopathy Pantoprazole (Pantoprazole) 40 Mg Tab 40 MG PO DAILY Reflux #30 Ref 0 TAB Potassium Chloride ER (Potassium Chloride ER) 10 Meq Tab 10 MEQ PO BID Electrolyte Replacement #60 Ref 0 TAB Juan Roman MD Oct 28, 2016 15:26
--- NOTE | 2016-10-28 17:52 | HHI.NSPN ---
Note Status Status: Progress Note Interval History Diagnosis TBI. Cervical fracture Interval History This is a 75-year-old gentleman transferred from [facility] where he was seen in the emergency room following the fall at home. The patient allegedly slipped in the shower fell striking the back of his head and presented to the emergency room with complaints of neck pain anterior chest pain. His evaluation showed small amount of traumatic subarachnoid hemorrhage in the right posterior parietal region on CT scan of the brain as well as cervical spine fractures. The patient was transferred to [place] for further evaluation and care. C6/25: Patient is awake and alert. Complaining of decreasing neck and sternal pain. No significant headache. 10/24. He is very lethargic, confused, stuporose 10/25. He is better today. S/p paracenthesis, amonia lower Labs, Micro, & Vital Signs Results Date Time Temp Pulse Resp B/P Pulse Ox O2 Delivery O2 Flow Rate FiO2 10/28/16 16:23 95.5 111 20 111/65 10/28/16 16:05 91 21 10/28/16 12:27 96.1 106 20 109/71 93 10/28/16 12:25 98 10/28/16 09:40 18 10/28/16 08:56 93 10/28/16 08:05 95.9 86 20 134/85 96 10/28/16 07:15 91 10/28/16 04:00 96.6 88 20 131/56 93 10/28/16 00:00 96.5 95 20 121/78 94 10/27/16 22:07 93 21 10/27/16 21:53 101 10/27/16 21:49 Room Air 10/27/16 20:00 96.3 80 20 103/74 94 10/27/16 19:16 98 10/28/16 07:00 Intake Total 1300 ml Output Total 1400 ml Balance -100 ml Constitutional Vital Signs Date Time Temp Pulse Resp B/P Pulse Ox O2 Delivery O2 Flow Rate FiO2 10/28/16 16:23 95.5 111 20 111/65 10/28/16 16:05 91 21 10/28/16 12:27 96.1 106 20 109/71 93 10/28/16 12:25 98 10/28/16 09:40 18 10/28/16 08:56 93 10/28/16 08:05 95.9 86 20 134/85 96 10/28/16 07:15 91 10/28/16 04:00 96.6 88 20 131/56 93 10/28/16 00:00 96.5 95 20 121/78 94 10/27/16 22:07 93 21 10/27/16 21:53 101 10/27/16 21:49 Room Air 10/27/16 20:00 96.3 80 20 103/74 94 10/27/16 19:16 98 10/28/16 07:00 Intake Total 1300 ml Output Total 1400 ml Balance -100 ml Review of Systems/Exam Exam Mr. Riley is awake, oriented to self and place. Conversing well, follows commands. Cranial nerve examination: pupils equal, round, and reactive to light. Extra- ocular movements are intact with normal convergence. Facial motor function appears normal and symmetrical. Cervical spine in a Rutherford collar Muscle strength is 5/5 in all muscle groups of both upper and lower extremities. Sensory: reports intact to light touch x 4 There is a bilateral plantar flexion response. Hoffmanns sign is negative. There is no ankle clonus Cerebellar examination is limited due to the patient condition, but no obvious deficits are noted. Medical Decision Making MDM Remarks Last Impressions Chest X-Ray 10/24/16 0000 Signed Impressions: Service Date/Time: Monday, October 24, 2016 11:57 - CONCLUSION: Increasing consolidation changes left base. Parminder Pierson MD FACR Abdomen/Pelvis CT 10/24/16 0000 Signed Impressions: Service Date/Time: Monday, October 24, 2016 14:46 - CONCLUSION: Cirrhosis with moderate ascites. Pleural effusion, mainly on the left. Lobular density in the region of the left adrenal gland is felt to mainly relate to varices, however an adrenal mass is not excluded. Further evaluation with contrasted CT versus MRI would be suggested. Fluid containing right inguinal hernia. Martín Mcneil MD Head CT 10/23/16 1250 Signed Impressions: Service Date/Time: Sunday, October 23, 2016 13:28 - CONCLUSION: 1. No acute abnormality is seen. The previously seen hemorrhage in the right parietal region is no longer seen. 2. Atrophy. 3. Chronic right maxillary sinus disease. Martín Keenan MD Renal Ultrasound 10/23/16 0000 Signed Impressions: Service Date/Time: Sunday, October 23, 2016 17:06 - CONCLUSION: 1. Poor visualization of the kidneys as described above. 2. No hydronephrosis is noted. 3. Ascites. Venu Prasad MD Thoracic Spine CT 10/22/16 0000 Signed Impressions: Service Date/Time: Saturday, October 22, 2016 10:37 - CONCLUSION: 1. There appear to be nondisplaced fractures involving the posterior lamina bilaterally at C7. This is suspicious for an unstable injury. 2. Subacute to chronic compression fracture along the superior endplate of T1 3. Primary degenerative changes with disc degeneration and disc space narrowing involving the mid to lower thoracic spine 4. Old compression fracture along the superior endplate of L1 Aaron Ambriz MD Last Impressions Head CT 10/23/16 1250 Signed Impressions: Service Date/Time: Sunday, October 23, 2016 13:28 - CONCLUSION: 1. No acute abnormality is seen. The previously seen hemorrhage in the right parietal region is no longer seen. 2. Atrophy. 3. Chronic right maxillary sinus disease. Martín Keenan MD Renal Ultrasound 10/23/16 0000 Signed Impressions: Service Date/Time: Sunday, October 23, 2016 17:06 - CONCLUSION: 1. Poor visualization of the kidneys as described above. 2. No hydronephrosis is noted. 3. Ascites. Venu Prasad MD Thoracic Spine CT 10/22/16 0000 Signed Impressions: Service Date/Time: Saturday, October 22, 2016 10:37 - CONCLUSION: 1. There appear to be nondisplaced fractures involving the posterior lamina bilaterally at C7. This is suspicious for an unstable injury. 2. Subacute to chronic compression fracture along the superior endplate of T1 3. Primary degenerative changes with disc degeneration and disc space narrowing involving the mid to lower thoracic spine 4. Old compression fracture along the superior endplate of L1 Aaron Ambriz MD Chest X-Ray 10/21/16 2483 Signed Impressions: Service Date/Time: Friday, October 21, 2016 22:44 - CONCLUSION: 1. Cardiomegaly with bibasilar atelectasis. Oskar Chavira MD Plan Plan Remarks Bilaminar C7 fracture and possible mild anterior T1 compression fracture following ground-level fall. Closed head injury with SAH, stable CT Attending Statement Neuro. Neuro checks in a serial fashion. Respiratory. pulmonary toilette, nasotracheal suction, and breathing treatments with nebulizers. PT and OT eval Nutrition. NPO Renal. monitor closely urine output, BUN and creatinine Endocrine. Monitor serial Acu checks and SSI for tight control ID monitor for signs of infection Protonix for stress ulcer prophylaxis Alistair hose and SCD's for DVT prophylaxis The exam, history, and the medical decision-making described in the above note were completed with the assistance of the mid-level provider. I reviewed and agree with the findings presented. I attest that I had a [id number] encounter with the patient on the same day, and personally performed and documented my assessment and findings in the medical record. Gurjit Burch MD Oct 28, 2016 17:52
== END 2016-10-28 18:26 | DRG 82 ==
LOC: NEPE 21:57 → NEDA 23:17 → N03B 10-22 01:22 → N05A 10-22 16:28 → N03B 10-24 13:16 → N05B 10-26 14:25
PROVIDERS: ADMIT Internal Medicine; ATTEND Internal Medicine
PROC: 0W9G3ZX Drainage of Peritoneal Cavity, Percutaneous Approach, Diagnostic (ICD-10-PCS; principal; 2016-10-24)
PROC: 0W9G3ZX Drainage of Peritoneal Cavity, Percutaneous Approach, Diagnostic (ICD-10-PCS; 2016-10-24)
DX: S06.6X9A Traumatic subarachnoid hemorrhage with loss of consciousness of unspecified duration, initial encounter (principal); K72.00 Acute and subacute hepatic failure without coma; J18.9 Pneumonia, unspecified organism; N17.9 Acute kidney failure, unspecified; A41.9 Sepsis, unspecified organism; D68.4 Acquired coagulation factor deficiency; S12.391A Other nondisplaced fracture of fourth cervical vertebra, initial encounter for closed fracture; S22.011A Stable burst fracture of first thoracic vertebra, initial encounter for closed fracture; E46 Unspecified protein-calorie malnutrition; R18.8 Other ascites; S12.691A Other nondisplaced fracture of seventh cervical vertebra, initial encounter for closed fracture; D69.59 Other secondary thrombocytopenia; K74.60 Unspecified cirrhosis of liver; E11.9 Type 2 diabetes mellitus without complications; I10 Essential (primary) hypertension; K21.9 Gastro-esophageal reflux disease without esophagitis; W18.2XXA Fall in (into) shower or empty bathtub, initial encounter; Y93.E1 Activity, personal bathing and showering; Y92.231 Patient bathroom in hospital as the place of occurrence of the external cause; F41.9 Anxiety disorder, unspecified; Y95 Nosocomial condition; E86.0 Dehydration; K59.00 Constipation, unspecified; Z79.84 Long term (current) use of oral hypoglycemic drugs
CPT/HCPCS: 70450; 71010; 72128; 74000; 74176; 76775; 80048; 80053; 81001; 82042; 82140; 82150; 82550; 82570; 82945; 82948; 83036; 83615; 83735; 83880; 84155; 84156; 84157; 84300; 84484; 85025; 85610; 85730; 87040; 87070; 87086; 87205; 87641; 88112; 88305; 89051; 93005; 94150; 94640; 94664; 96361; 96374; 96375; J0456; J0696; J1630; J1815; J1940; J2270; J2405; J2543; J3370; J7030; J7050; L0150; L0172